=== PATIENT | female | born 1955 | race Caucasian/White ===

== ENCOUNTER 2019-10-09 17:23 | Outpatient (CLI) | payer BC, MEDICARE, SELFPAY ==
--- NOTE | ~2019-10-09 | CT_ITS ---
EXAMINATION: CT lung screening EXAM DATE: 10/09/2019 18:14 INDICATION: Personal history of nicotine dependence. TECHNIQUE: Spiral low dose CT of the chest without contrast. Axial, coronal and sagittal images were reviewed. The dose-length product (DLP) for this examination was 83.60 mGy-cm. The exposure was ta ilored according to patient size (auto mA exposure control), and iterative reconstruction (ASIR) was used as additional dose reduction technique. Comparison is made to prior examination from 11/23/2015. FINDINGS: The lungs are clear. There is mild emphysema. Tracheobronchial tree is patent. There is no mediastinal, hilar or axillary lymphadenopathy. There are no pleural or pericardial effusions. There is no pneumothorax. Heart normal in size. There is rather extensive coronary arterial calc ification, arterial sclerosis. Upper abdomen is unremarkable. There is thoracic spondylosis without osteoblastic or osteolytic lesions identified. IMPRESSION: 1. Lung-RADS category 2S, benign appearance or behavior (<1% chance of malignancy); recommend contin ued LDCT screening in 1 year. 2. Dense coronary artery calcifications. Consider follow-up nonemergent cardiology evaluation if not recently evaluated. Reviewed, dictated and finalized at location A. REPAIRER IMPRESSION: 1. Lung-RADS category 2S, benign appearance or behavior (<1% chance of maligna ncy); recommend continued LDCT screening in 1 year. 2. Dense coronary artery calcifications. Consider follow-up nonemergent cardio logy evaluation if not recently evaluated.
== END 2019-10-09 17:24 | disposition home or self-care (01) ==
PROVIDERS: PCP Emergency Medicine; Visit Provider Emergency Medicine
DX: Z12.2 Encounter for screening for malignant neoplasm of respiratory organs (principal); I25.10 Atherosclerotic heart disease of native coronary artery without angina pectoris; Z87.891 Personal history of nicotine dependence
CPT/HCPCS: G0297

== ENCOUNTER 2019-12-03 13:06 | Outpatient (CLI) | payer BC, MEDICARE, SELFPAY ==
--- NOTE | ~2019-12-03 | US_ITS ---
EXAMINATION: US carotid duplex BI DATE: 12/03/2019 14:07 INDICATION: Carotid stenosis. TECHNIQUE: Grayscale, color Doppler, and pulsed Doppler images of the cervical carotid arteries were obtained. The degree of vessel stenosis is placed in one of the following categories: normal, <50%, 5 0-69%, >=70% but less than near-occlusion, near-occlusion, or total occlusion. Note that percent sten osis relative to normal distal artery lumen diameter is indirectly measured from velocity measurement s as described by Mikel, et al. Radiology 2003; 229:340-346. COMPARISON: None. FINDINGS: RIGHT: The right common carotid artery (CCA) peak systolic velocity (PSV) is 70 cm/s. The right internal car otid artery (ICA) PSV is 73 cm/s. The right ICA end-diastolic velocity (EDV) is 18 cm/s. The right IC A/CCA PSV ratio is 1.0. Grayscale and color Doppler images yield an estimate of <50% diameter reducti on from plaque in the ICA. There is antegrade flow in the right vertebral artery. LEFT: The left CCA PSV is 107 cm/s. The left ICA PSV is 90 cm/s. The left ICA EDV is 23 cm/s. The left ICA/ CCA PSV ratio is 0.8. Grayscale and color Doppler images yield an estimate of <50% diameter reduction from plaque in the ICA. There is antegrade flow in the left vertebral artery. IMPRESSION: 1. <50% stenosis in the right internal carotid artery. 2. <50% stenosis in the left internal carotid artery. Reviewed, dictated and finalized at location A. RER HIGH DENSITY PRESS
== END 2019-12-03 13:07 | disposition home or self-care (01) ==
PROVIDERS: PCP Emergency Medicine; Visit Provider Emergency Medicine
DX: I65.23 Occlusion and stenosis of bilateral carotid arteries (principal)
CPT/HCPCS: 93880

== ENCOUNTER 2020-06-14 08:26 | Outpatient (CLI) | payer BC, MEDICARE, SELFPAY ==
--- NOTE | ~2020-06-14 | NM_ITS ---
EXAMINATION: NM francia stress w perfusion DATE: 06/14/2020 14:36 INDICATION: Dyspnea on exertion TECHNIQUE: Rest images were obtained following intravenous administration of 9.7 mCi Tc99m tetrofosmi n (Myoview). The patient was infused intravenously with Lexiscan (Regadenoson). Then, 30 mCi Tc99m te trofosmin (Myoview) was administered intravenously, and stress images were obtained. Data was reconst ructed into short axis and horizontal and vertical long axis SPECT images. Gated SPECT images were al so obtained. COMPARISON: None. FINDINGS: There is no definite reversible or fixed perfusion abnormality to suggest ischemia or infar ction. There is normal left ventricular chamber size, wall motion and ejection fraction. Left ventr icular ejection fraction measures >70%. IMPRESSION: 1. Normal myocardial perfusion at rest and during stress. 2. Left ventricular ejection fraction measuring >70%. Reviewed, dictated and finalized at location A.
--- NOTE | 2020-06-14 08:38 | ECHO_ITS ---
Patient Info Name: Diana Singh Age: 64 years : 1955 Gender: Female Ht: 63 in Wt: 143 lbs BSA: 1.71 m2 HR: 65 bpm BP: 137 / 88 mmHg Heart Rhythm: Sinus Rhythm Technical Quality: Good Exam Date: 06/14/2020 8:54 AM Exam Location: [facility] Patient Status: Outpatient Admit Date: 06/14/2020 Staff Ordering Physician: Oscar Mejia DO Donor Services Coordinator: Mann Bowman RDCS Attending Provider: Oscar Mejia DO Referring Physician: Roberto DIAZ; Exam Type: CA echo doppler color flow Study Info Indications R06.00 - Dyspnea, unspecified Complete two-dimensional, color flow and Doppler transthoracic echocardiogram is performed. Strain analysis performed. History/Risk Factors Dyspnea. Summary 1. Complete two-dimensional, color flow and Doppler transthoracic echocardiogram is performed. 2. Left ventricular chamber dimension is normal. 3. Left ventricular systolic function is normal, estimated at 60-65%. 4. There is mildly increased left ventricular wall thickness. 5. The left ventricular diastolic function is grade I diastolic dysfunction. 6. E/e' 11 is mildly elevated. 7. Global longitudinal strain is normal at -17.7%. Left Ventricle E/e' 11 is mildly elevated. Global longitudinal strain is normal at -17.7%. Left ventricular chamber dimension is normal. Left ventricular systolic function is normal, estimated at 60-65%. There is mildly increased left ventricular wall thickness. The left ventricular diastolic function is grade I diastolic dysfunction. Right Ventricle Right ventricular chamber dimension is normal. Right ventricular systolic function is normal. Left Atria Left atrial chamber dimension is normal. Right Atria Right atrial chamber dimension is normal. Aortic Valve The aortic valve is trileaflet. There is no aortic valve stenosis. There is no aortic valve regurgitation. Pulmonic Valve There is no pulmonic regurgitation. Mitral Valve There is no mitral valve stenosis. There is no mitral valve regurgitation. Tricuspid Valve There is no tricuspid valve regurgitation. Pericardium/Pleural There is no pericardial effusion. Inferior Vena Cava Normal inferior vena cava with >50% collapse upon inspiration consistent with normal right atrial pressure, 5 mmHg. Aorta The aortic root size at the sinus of Valsalva is normal. Left Ventricular Outflow Tract Name Value Normal LVOT 2D LVOT Diameter 1.7 cm LVOT Doppler LVOT Peak Gradient 4 mmHg LVOT Mean Gradient 2 mmHg LVOT VTI 20 cm LVOT VTI/AV VTI Ratio 0.7 LVOT Stroke Volume 43 ml LVOT CO 2.8 l/min LVOT CI 1.6 l/min/m2 Mitral Valve Name Value Normal MV Doppler
--- NOTE | 2020-06-14 08:38 | EST_ITS ---
Patient Info Name: Diana Singh Age: 64 years : 1955 Gender: Female Ht: 62 in Wt: 140 lbs BSA: 1.68 m2 Exam Date: 06/14/2020 10:37 AM Exam Location: [facility] Patient Status: Outpatient Admit Date: 06/14/2020 Staff Ordering Physician: Oscar Mejia DO Attending Provider: Oscar Mejia DO Exercise Technologist: Stephanie Pang RDCS Exercise Physician: Oscar Mejia DO Exam Type: CA stress francia w NM Study Info Indications R06.00 - Dyspnea, unspecified A regadenoson stress test was performed. Summary 1. 1. Negative lexiscan stress test for ischemic ST changes by ECG criteria. 2. 2. Stable hemodynamics throughout the test. 3. 3. Nuclear scan to follow and will be reported separately. Please correlate with it. 4. 4. Patient informed of the above results. Protocol: Lexiscan Stress ECG Details Stage: REST Duration (min): 5 min : 22 sec HR (bpm): 62 SBP (mmHg): 128 DBP (mmHg): 71 Stage: REST Duration (min): 11 min : 25 sec HR (bpm): 67 SBP (mmHg): 128 DBP (mmHg): 71 Stage: STAGE 1 Duration (min): 1 min : 0 sec HR (bpm): 98 SBP (mmHg): 129 DBP (mmHg): 76 Stage: RECOVERY Duration (min): 1 min : 0 sec HR (bpm): 104 SBP (mmHg): 151 DBP (mmHg): 72 Stage: RECOVERY Duration (min): 2 min : 0 sec HR (bpm): 96 SBP (mmHg): 151 DBP (mmHg): 72 Stage: RECOVERY Duration (min): 3 min : 0 sec HR (bpm): 88 SBP (mmHg): 128 DBP (mmHg): 71 Stage: RECOVERY Duration (min): 3 min : 3 sec HR (bpm): 89 SBP (mmHg): 128 DBP (mmHg): 71 Rest HR: 67 bpm Peak HR: 104 bpm Rest Sys BP: 128 mmHg Peak Sys BP: 151 mmHg Max Pred HR: 157 bpm % Max Pred HR: 66 % Target HR: 133 bpm Max RPP: 15,704 bpm*mmHg Termination Reason: Completed protocol Cardiac Symptoms: Shortness of breath Total Time: 1 min : 0 sec Rest Moore BP: 71 mmHg Peak Moore BP: 72 mmHg Total Dose: 0.4 mg Resting ECG Sinus rhythm, delayed R/S transition. Stress ECG No ST changes. Arrhythmias None. Report Signatures
== END 2020-06-14 08:27 | disposition home or self-care (01) ==
PROVIDERS: PCP Emergency Medicine; Visit Provider Internal Medicine Cardiovascular Disease
DX: R06.00 Dyspnea, unspecified (principal)
CPT/HCPCS: 78452; 93017; 93306; A9502; J2785

== ENCOUNTER 2022-11-02 13:49 | Outpatient (CLI) | payer MEDICARE, SELFPAY ==
--- NOTE | ~2022-11-02 | US_ITS ---
EXAMINATION: US arterial ankle brachial ind DATE: 11/02/2022 14:34 INDICATION: Peripheral vascular disease with numbness and tingling to the right lower limb TECHNIQUE: Segmental pressures and plethysmographic and Doppler waveforms of the brachial and lower e xtremity arteries were obtained. COMPARISON: None. FINDINGS: Right and left brachial artery pressures of 122 mm Hg and 133 mm Hg, respectively, are concordant (no rmal difference <= 30 mmHg). The right ankle-brachial index (KRISTIN) is 1.05 (normal >= 0.9-1.0). The right great toe-brachial index (TBI) is 0.47 (normal >= 0.65). Arterial Doppler waveforms biphasic with brisk systolic upstrokes at both right posterior tibial and dorsalis pedis arteries. The left KRISTIN is 1.13. The left TBI is 0.62. Arterial Doppler waveforms are biphasic with brisk systol ic upstrokes at both left posterior tibial and dorsalis pedis arteries. IMPRESSION: 1. Arterial occlusive disease to the bilateral lower limbs with mildly decreased bilateral TBIs. Reviewed, dictated and finalized at location B. ATIONS AND MAINTENANCE SUPERVISOR IMPRESSION: 1. Arterial occlusive disease to the bilateral lower limbs with mildly decrease d bilateral TBIs.
== END 2022-11-02 13:50 | disposition home or self-care (01) ==
PROVIDERS: PCP Family Medicine; Visit Provider Family Medicine
DX: I73.9 Peripheral vascular disease, unspecified (principal)
CPT/HCPCS: 93922

== ENCOUNTER 2024-02-07 12:30 | Outpatient (CLI) | payer MEDICARE, SELFPAY ==
--- NOTE | ~2024-02-07 | CT_ITS ---
CT Scan of the Chest without Contrast: Clinical Indication: Lung cancer screening, smoking history Technique: Contiguous sections were acquired throughout the chest without intravenous contrast. Dose reduction technique was used on this scan by utilizing automated exposure control and iterative recon struction technique. The dose-length product (DLP) was 78.19 mGy-cm. COMPARISON: 10/09/2019 Findings: There is no evidence of any significant mediastinal, hilar or axillary lymphadenopathy. Atherosclerot ic calcifications of the aorta and coronary arteries are present. There is no evidence of pleural or pericardial effusion. Several calcified granulomas are present. No other pulmonary nodule evident. Images through the upper abdomen reveal no abnormalities. Impression: No significant abnormalities seen. Reviewed, dictated and finalized at location . Impression: No significant abnormalities seen.
== END 2024-02-07 12:31 | disposition home or self-care (01) ==
LOC: ANHIMG 12:32
PROVIDERS: PCP Family Medicine; Visit Provider Family Medicine
DX: Z12.2 Encounter for screening for malignant neoplasm of respiratory organs (principal); Z87.891 Personal history of nicotine dependence
CPT/HCPCS: 71271

== ENCOUNTER 2024-03-13 10:47 | Inpatient (IN) | payer MEDICARE, SELFPAY ==
[2024-03-13] VITALS (21 sets, daily range): BP systolic 99–250; BP diastolic 28–85; PULSE 28–92; RESP 15–26; TEMP 36.6–37.2; O2SAT 94–100; BMI 29.9
--- NOTE | 2024-03-13 | ECHO_ITS ---
Patient Info Name: Diana Singh Age: 68 years : 1955 Gender: Female Ht: 62 in Wt: 149 lbs BSA: 1.74 m2 HR: 70 bpm BP: 126 / 64 mmHg Heart Rhythm: Paced Technical Quality: Fair Exam Date: 03/13/2024 1:21 PM Exam Location: Echo Lab Patient Status: Inpatient Admit Date: 03/13/2024 Staff Ordering Physician: Smith Castelan MD Youth Care Specialist: Honorio Nielson [facility] [[email or web address]] Attending Provider: Peter Ramirez MD Referring Physician: Annelise HIRSCH; Exam Type: CA echo doppler color flow Study Info Indications - Complete Heart Block Complete two-dimensional, color flow and Doppler transthoracic echocardiogram is performed. Summary 1. Complete two-dimensional, color flow and Doppler transthoracic echocardiogram is performed. 2. Normal left and right ventricular size and systolic function. 3. No significant valvular abnormalities. 4. Temporary pacemaker lead noted in the right heart chambers. Left Ventricle Left ventricular chamber dimension is normal. Left ventricular systolic function is normal, estimated at 65-70%. The left ventricular diastolic function is indeterminate. Right Ventricle Right ventricular chamber dimension is normal. Left Atria Left atrial chamber dimension is normal. Right Atria Right atrial chamber dimension is normal. Aortic Valve The aortic valve is trileaflet. There is mild aortic valve sclerosis. Pulmonic Valve The pulmonic valve is normal. Mitral Valve The mitral valve has normal leaflets. Tricuspid Valve The tricuspid valve leaflets are normal. Pericardium/Pleural The pericardium appears normal. Aorta The aortic root size at the sinus of Valsalva is normal. Left Ventricular Outflow Tract Name Value Normal LVOT 2D LVOT Diameter 2.0 cm LVOT Doppler LVOT Peak Gradient 6 mmHg LVOT Mean Gradient 3 mmHg LVOT VTI 27 cm LVOT VTI/AV VTI Ratio 0.9 LVOT Stroke Volume 80 ml LVOT CO 5.3 l/min LVOT CI 3.1 l/min/m2 Pulmonic Valve Name Value Normal RVOT Doppler RVOT Peak Gradient 6 mmHg PV Doppler PV Peak Gradient 10 mmHg Mitral Valve Name Value Normal MV Doppler MV Decel [place] 427 cm/s2 MV PHT 61 ms MV Area (PHT) 3.6 cm2 4.0-5.0 MV Diastolic Function MV E
--- NOTE | ~2024-03-13 | XR_ITS ---
EXAMINATION: XR chest 1V portable DATE: 03/13/2024 11:54 INDICATION: Chest pain. TECHNIQUE: A single frontal view of the chest was obtained. COMPARISON: Chest 2 views 01/24/2014, chest CT 02/07/2024 FINDINGS: There is no pneumonia, pleural effusion, or pneumothorax. The heart size is normal. IMPRESSION: 1. No acute cardiopulmonary disease. Reviewed, dictated and finalized at location A.
--- NOTE | ~2024-03-13 | XR_ITS ---
XR chest 1V portable Ordering provider: Smith Castelan MD History: 68 years Female with . pacemaker insertion . Comparison: March 13, 2024 at 11:49 AM FINDINGS: MEDIASTINUM: The cardiac silhouette is not enlarged. Left bipolar pacemaker. LUNGS: No effusion or pneumothorax. Bilateral prominent markings with interstitial changes. OTHER: No free air under the diaphragm. IMPRESSION: Bilateral prominent markings with interstitial changes. Pneumonitis is highly suggestive. Reviewed, dictated and finalized at location A. IMPRESSION: Bilateral prominent markings with interstitial changes. Pneumonitis is highly s uggestive.
--- NOTE | ~2024-03-13 | XR_ITS ---
EXAMINATION: XR chest 2V 03/14/2024 16:08 INDICATION: Pacemaker insertion PROCEDURE: 2 view chest COMPARISON: 03/13/2024 FINDINGS: The lungs are clear. The cardiomediastinal silhouette is within normal limits. There are no pleural effusions. There is no pneumothorax suspected. Pacemaker leads are present. IMPRESSION: 1: NO ACUTE CARDIOPULMONARY DISEASE. Reviewed, dictated and finalized at location B.
--- NOTE | 2024-03-13 10:49 | ECG_ITS ---
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 Measurements Intervals [place] Rate: 31 P: 0 ME: 0 QRS: -69 QRSD: 128 T: 47 QT: 470 QTc: 341 Interpretive Statements SINUS RHYTHM WITH HIGH GRADE AV BLOCK WITH 3-1 CONDUCTION RIGHT BUNDLE BRANCH BLOCK [120+ ms QRS DURATION, UPRIGHT V1, 40+ ms S IN I/aVL/V4/V5/V6] LEFT ANTERIOR FASCICULAR BLOCK [QRS AXIS <= -45, QR IN I, RS IN II] ABNORMAL ECG No previous ECG available for comparison Electronically Signed On 03-14-2024 07:46:15 CDT by Smith Castelan M.D.
[2024-03-13 11:14] LABS: Basophils Absolute Auto 0.1 K/mm3 (0.0-0.1); Basophils Percent Auto 0.7 % (0.2-1.2); Eosinophils Absolute Auto 0.3 K/mm3 (0-0.3); Eosinophils Percent Auto 2.2 % (0-4.4); Hemoglobin 14.9 g/dL (12.0-15.0); Immature Granulocyte Absolute 0.07 K/mm3 (0.00-0.031); Immature Granulocyte Percent A 0.5 % (0-0.5); Lymphocytes Absolute Auto 2.91 K/mm3 (0.9-3.2); Lymphocytes Percent Auto 19.7 % (18.3-44.2); Mean Corpuscular HGB Conc 33.1 g/dl (32-36); Mean Corpuscular Hemoglobin 31.7 pg (26-34); Mean Corpuscular Volume 95.7 fl (80-100); Mean Platelet Volume 11.4 fl (7.4-10.4); Monocytes Absolute Auto 1.1 K/mm3 (0.1-0.6); Monocytes Percent Auto 7.2 % (2.6-8.5); Neutrophils Absolute Auto 10.3 K/mm3 (1.3-6.7); Neutrophils Percent Auto 69.7 % (45.5-73.1); Platelet Count Result 287 k/mm3 (150-375); Red Cell Distribution Width 12.6 % (11.5-14.5); White Blood Count 14.8 K/mm3 (4.5-10.0)
[2024-03-13] MEDS: ATROPINE SULFATE 1 MG/ML VIAL 0.5 MG IV PUSH (11:18)
[2024-03-13] MEDS: fentaNYL CITRATE INJ (*CRX) 100 MCG/2 ML VIAL 50 MCG IV PUSH ×2 (11:18→11:25)
[2024-03-13] MEDS: MIDAZOLAM HCL (*CRX) 2 MG/2 ML VIAL IV PUSH (11:19)
--- NOTE | 2024-03-13 11:28 | ED.GENADULT ---
HPI - General Adult General Chief complaint: Chest Pain Stated complaint: chest pain, vomiting Time Seen by Provider: 03/13/24 11:07 History of Present Illness HPI narrative: This is a 68-year-old female presenting ED with a chief complaint chest pain and vomiting. Patient woke up this morning with a substernal chest pain. It is associated with multiple episodes of vomiting. no associated radiation or diaphoresis, or exertion. No fevers chills, difficulty breathing or abdominal pain. Patient is on metoprolol but has not taken her morning dose today. Related Data Home Medications Medication Instructions Recorded Confirmed atorvastatin 40 mg tablet (Lipitor) 40 mg PO DAILY 04/28/20 05/20/20 ergocalciferol (vitamin D2) 1,250 1,250 mcg PO WEEKLY 04/28/20 05/20/20 mcg (50,000 unit) capsule metformin 500 mg tablet 500 mg PO BID 04/28/20 05/20/20 metoprolol tartrate 50 mg tablet 50 mg PO Q12H 04/28/20 05/20/20 amlodipine 10 mg tablet (Norvasc) 5 mg PO DAILY 05/20/20 05/20/20 Allergies Allergy/AdvReac Type Severity Reaction Status Date / Time No Known Allergies Allergy Unverified 05/20/20 13:37 [facility] Past Medical History Medical History Diabetes Hypertension Exam Narrative: APPEARANCE: No apparent distress. Head: atraumatic. EYES: EOMI, NOSE: Atraumatic NECK: Trachea midline RESPIRATORY: No increased rate of breathing, CTAb CARDIOVASCULAR: Bradycardic, no peripheral edema ABDOMINAL: Non-distended, soft nontender MUSCULOSKELETAl: No obvious deformities NEURO: Alert. Moving 4/4 extremities SKIN:: Warm, dry. Normal color PSYCHIATRIC: Normal affect Course Vital Signs Vital signs: Vital Signs Temperature 98.1 F 03/13/24 10:52 Pulse Rate 28 L 03/13/24 10:52 Respiratory Rate 18 03/13/24 10:52 Blood Pressure 150/50 H 03/13/24 10:52 Pulse Oximetry 100 03/13/24 10:52 Oxygen Delivery Room Air 03/13/24 10:52 Temperature 98.1 F 03/13/24 10:52 Pulse Rate 58 L 03/13/24 11:47 Respiratory Rate 20 03/13/24 11:47 Blood Pressure 250/28 H 03/13/24 11:47 Pulse Oximetry 94 03/13/24 11:47 Oxygen Delivery Room Air 03/13/24 11:06 Medical Decision Making MDM Narrative Medical decision making narrative: -Course: 68-year-old female presenting with chest pain and vomiting. Found to be in third-degree AV block. Given atropine with no response. Due to the chest pain and vomiting patient has been started on transcutaneous pacing at 70 bpm w/ capture at 100ma. heel layer contacted. Dr. Be will be taking the patient to the labor relations or personnel negotiator for a transvenous pacer and the patient will be placed in the ICU. -DDX includes but is not limited to: high grade AV block - ischemia, drug reaction, electrolyte abnormality -Co-morbidities complicating care: hypertension, diabetes -Independent interpretation of studies: white count 14 potassium 4.9 chest x-ray unremarkable. Independent EKG interpretation: Rhythm high grade av block, Rate [31], [place] -leftward, QRS [narrow], QTC [normal], T waves -[negative for concerning inversions], ST Segments - [Negative for concerning elevations] Final interpretations: high degree AV block, type 2 Mobitz with 3-1 versus complete AV block -Discussion of Management/Consultants:Cong Be, -Interventions: Atropine, Transcutaneous pacing -Shared decision making / Disposition: admitted Vital Signs Vital Signs: Vital Signs Temperature 98.1 F 03/13/24 10:52 Pulse Rate 28 L 03/13/24 10:52 Respiratory Rate 18 03/13/24 10:52 Blood Pressure 150/50 H 03/13/24 10:52 Pulse Oximetry 100 03/13/24 10:52 Oxygen Delivery Room Air 03/13/24 10:52 Temperature 98.1 F 03/13/24 10:52 Pulse Rate 58 L 03/13/24 11:47 Respiratory Rate 20 03/13/24 11:47 Blood Pressure 250/28 H 03/13/24 11:47 Pulse Oximetry 94 03/13/24 11:47 Oxygen Delivery Room Air
[2024-03-13 11:32] LABS: Prothrombin Time 14.1 Seconds (11.1-14.7)
[2024-03-13 11:33] LABS: Partial Thromboplastin Time 21.5 Seconds (22.3-36.8)
--- NOTE | 2024-03-13 11:49 | PC.NURSE ---
Dr. Castelan at bedside discussing possibility of needing a pacemaker with pt and family.
[2024-03-13 11:56] LABS: Alanine Aminotransferase 74 U/L (6-35); Albumin Level 3.8 g/dL (3.5-5.1); Alkaline Phosphatase 294 U/L (38-126); Anion Gap 6 mmol/L (4-12); Aspartate Amino Transferase 73 U/L (14-36); Bilirubin,Total 0.6 mg/dL (0.2-1.3); Blood Urea Nitrogen 27 mg/dL (7-17); Calcium 9.1 mg/dL (8.4-10.2); Carbon Dioxide 25 mmol/L (22-30); Chloride 100 mmol/L (98-107); Estimated CRCL calculation 48 ml/min; Estimated Glomerular Filt Rate > 60; Glucose 491 mg/dL (65-110); Lipase 242 U/L (23-300); Potassium 4.9 mmol/L (3.4-5.0); Sodium 131 mmol/L (137-145)
--- NOTE | 2024-03-13 12:07 | PM.CNCAR ---
Assessment and Plan Assessment and plan (1) High-grade atrioventricular block: Code(s): I44.39 - Other atrioventricular block Status: Acute Plan This is a 68-year-old lady presenting interestingly with some epigastric discomfort. There is no evidence of acute injury by ECG but she does have acquired high-grade AV block and currently appears to be in complete heart block with very few QRS complexes other than the paced output from her transcutaneous device. Her electrolytes and laboratory data appears to be largely in order except for significant hyperglycemia. I am going to bring her immediately to the cardiac catheterization lab for placement of a transcutaneous pacemaker device. She will then go from there to the ICU where an echocardiogram will be done as soon as possible to make decisions about optimal type of permanent pacemaker device Smith Castelan MD [facility] History of Present Illness History of Present Illness Consult date/time: 03/13/24 12:07 Reason For Visit: chest pain, vomiting Narrative: This is a 68-year-old woman unknown to me prior to this encounter who I am seeing in the emergency room because of high-grade AV block. I was called a short time a bow go by the ED physician that the patient presented to an urgent care center today are reporting symptoms of some epigastric discomfort that began several hours ago while she was at home she is not really noticing any pain up in the chest shoulders or back. She was feeling poorly because of this interestingly she was not having any complaints of syncope lightheadedness or presyncope. She was found to be bradycardic and was sent to the emergency department. Her electrocardiogram on arrival appears to show sinus rhythm with high-grade AV block with a 3-1 conduction. She was placed on a temporary trans cutaneous pacemaker by the ED physician wall a workup was initiated. Her 12 lead electrocardiogram does not show any acute current of injury or ischemic pattern. Upon my arrival to the ER she appears to be relatively comfortable other than the shocking from the transcutaneous pacemaker device. When I pause the pacemaker output she has complete heart block with P waves with very few intrinsic QRS complexes. In this setting I am seeing her in consultation she does not have any prior cardiac history. He does have hypertension and diabetes as well as hypercholesterolemia. Review of Systems Constitutional: Constitutional: Reports no additional constitutional complaints Eyes: Eyes: Reports no additional eye complaints ENT: Reports system reviewed and no additional complaints, except as documented Cardiovascular: Cardiovascular: Reports as per HPI Respiratory: Respiratory: Reports no additional respiratory complaints Gastrointestinal: Gastrointestinal: Reports no additional gastrointestinal complaints Musculoskeletal: Musculoskeletal: Reports no additional musculoskeletal complaints Integumentary/Breasts: Skin/Breast: Reports system reviewed and no additional complaints, except as docu Neurologic: Reports system reviewed and no additional complaints, except as documented Endocrine: Endocrine: Reports no additional endocrine complaints Hematologic/Lymphatic: Hematologic/Lymphatic: Reports no additional hematologic/lymphatic complaints Allergic/Immunologic: Allergic/Immunologic: Reports no additional allergic/immunologic complaints [facility] Past Medical History Medical History Diabetes Hypertension Meds Home Medications and Allergies Home Medications Medication Instructions Recorded Confirmed Type atorvastatin 40 mg tablet (Lipitor) 40 mg PO DAILY 04/28/20 05/20/20 History ergocalciferol (vitamin D2) 1,250 1,250 mcg PO WEEKLY 04/28/20 05/20/20 History mcg (50,000 unit) capsule metformin 500 mg tablet 500 mg PO BID 04/28/20 05/20/20 History metoprolol tartrate 50 mg tablet 50 mg PO Q12H 04/28
[2024-03-13 12:08] LABS: Troponin I < 0.012 ng/mL (0.000-0.034)
--- NOTE | 2024-03-13 12:12 | WPDMODSED ---
Moderate Sedation Note-Pt Data Patient Data Diagnosis: Acquired complete heart block Present Complaint: Abdominal discomfort in the epigastrium Procedure to be performed/Plan: Placement of temporary transvenous pacemaker Allergies Allergy/AdvReac Type Severity Reaction Status Date / Time No Known Allergies Allergy Unverified 05/20/20 13:37 Home Medications Medication Instructions Recorded Confirmed Type atorvastatin 40 mg tablet (Lipitor) 40 mg PO DAILY 04/28/20 05/20/20 History ergocalciferol (vitamin D2) 1,250 1,250 mcg PO WEEKLY 04/28/20 05/20/20 History mcg (50,000 unit) capsule metformin 500 mg tablet 500 mg PO BID 04/28/20 05/20/20 History metoprolol tartrate 50 mg tablet 50 mg PO Q12H 04/28/20 05/20/20 History amlodipine 10 mg tablet (Norvasc) 5 mg PO DAILY 05/20/20 05/20/20 History Sedation/Anesthesia: No previous sedation/anesthesia problems (including family history). PMFSH Past Medical History Medical History Diabetes Hypertension Mod Sed Physical Exam Physical Exam Pre Procedural Exam: Normal: Appearance (Well-developed well-nourished lady somewhat uncomfortable with transcutaneous pacemaker output), Throat, Airway, Lungs, Heart Size, Heart Rate (Cutaneously paced rhythm), Heart Rhythm, Neuro Exam and Extremities Hours since solid foods: 4 Hours since liquid intake: 4 Mallampati Classification: class II Internal Medicine - PN: Obj Da Vital Signs Vital Signs: Vital Signs - 24 hr 03/13/24 10:52 03/13/24 11:06 03/13/24 11:06 Temperature 36.7 C Pulse Rate 28 L 37 L Respiratory Rate 18 Blood Pressure 150/50 H Pulse Oximetry 100 Oxygen Delivery Room Air Room Air 03/13/24 11:47 Temperature Pulse Rate 58 L Respiratory Rate 20 Blood Pressure 250/28 H Pulse Oximetry 94 Oxygen Delivery Meds/Results Radiology Results: ITS Impressions Chest X-Ray 03/13/24 12:02 IMPRESSION: 1. No acute cardiopulmonary disease. Labs 03/13/24 11:09 03/13/24 11:31 Labs: Laboratory Results - last 24 hr 03/13/24 03/13/24 11:09 11:31 WBC 14.8 H RBC 4.70 Hgb 14.9 Hct 45.0 MCV 95.7 MCH 31.7 MCHC 33.1 RDW 12.6 Plt Count 287 MPV 11.4 H Immature Gran % (Auto) 0.5 Neut % (Auto) 69.7 Lymph % (Auto) 19.7 Trigg % (Auto) 7.2 Eos % (Auto) 2.2 Baso % (Auto) 0.7 Lymph # (Auto) 2.91 Trigg # (Auto) 1.1 H Eos # (Auto) 0.3 Baso # (Auto) 0.1 Abs Immat Gran (auto) 0.07 H Absolute Neuts (auto) 10.3 H Absolute Nucleated RBC 0.000 Nucleated RBC % 0.0 PT 14.1 INR 1.0 APTT 21.5 L Sodium 131 L Potassium 4.9 Chloride 100 Carbon Dioxide 25 Anion Gap 6 BUN 27 H Creatinine 0.90 Estim Creat Clear Calc 48 Estimated GFR > 60 Glucose 491 H Calcium 9.1 Total Bilirubin 0.6 AST 73 H ALT 74 H Alkaline Phosphatase 294 H Troponin I < 0.012 Total Protein 7.0 Albumin 3.8 Lipase 242 ASA Classification/Sedation ASA Classification/Sedation ASA Class: IV Emergent: No Risks: Risks, benefits and alternatives explained and patient/family accepted plan for sedation. Patient re-evaluated immediately prior to sedation.
--- NOTE | 2024-03-13 12:46 | WPDCARDPROC ---
Cardiac Cath Procedure Note Date of procedure:: 03/13/24 Performing physician:: Smith Castelan MD Indication:: Symptomatic bradycardia with complete heart block Brief clinical history:: this is a 68-year-old woman who came to the hospital with a chief complaint of epigastric abdominal discomfort. She is interested in the found to be bradycardic with high-grade AV block. Transcutaneous pacing was started in the emergency room and at this time she appears to be dependent on the device as there is no intrinsic ventricular rhythm upon pausing of her pacemaker. In this setting a temporary transvenous pacemaker has been recommended Procedure Procedure performed:: temporary transvenous pacemaker Sedation/Medication given:: fentanyl 25 Versed 2 mg Access site:: right femoral vein Estimated blood loss:: minimal Procedure note:: patient was brought to the cardiac catheterization lab with the temporary transcutaneous pacemaker device in place and pacing at 80 beats per minute. The right femoral triangle was prepped and draped in the usual fashion. Anesthesia was given with 1% lidocaine infiltrated locally. Using the modified Seldinger technique the femoral vein was punctured and a 6 [place] vascular sheath was placed. After this I used a 5 [place] balloon tipped temporary pacing wire advanced under fluoroscopic guidance into the central venous circulation into the right atrium across the tricuspid valve and into the RV near the apex. The balloon was deflated and the permanent wire was tested using the 2 temporary generator device. The pacing and sensing performance was very good. The transcutaneous device was then turned off. The sheath was sutured into position with 2-0 silk the area was dressed with a Tegaderm to stabilize the temporary wire. She was taken to the ICU for further evaluation and management. Conclusion:: Successful uncomplicated placement of temporary transvenous pacing lead in this patient with acquired complete heart block who appears to have essentially become dependent on pacing with a transcutaneous device that was initiated in the emergency department. Smith Castelan MD [facility]
--- NOTE | 2024-03-13 13:04 | ADMGEN ---
This patient, Diana Singh, was admitted to Intensive Care Unit-1. Patient/family oriented to hospital policies and general routines including ID bracelet, bed and alarms, visiting hours, pain management, procedures, bathroom and other care routines, personal items, smoking policy, room service/diet, and visiting hours. Information on how to activate the Rapid Response Team has been discussed. Patient/Family are encouraged to report perceived risks to care and to ask questions if they do not understand what they are told or what they should do.
--- NOTE | 2024-03-13 13:11 | WPDCNINT ---
Assessment and Plan Assessment and plan (1) High-grade atrioventricular block: Code(s): I44.39 - Other atrioventricular block Status: Acute Assessment and Plan: patient presented with symptomatic high-grade AV block. Received transvenous pacer in the ER. She is on beta-torie at home but did not take her medication this morning. electrolytes are acceptable patient was taken to cardiac catheterization lab and underwent transvenous pacemaker placement. Patient now chest pain-free and hemodynamics improved. echo was reviewed by clinical haematologist at bedside and plan is to place permanent pacemaker npo (2) Diabetes: Code(s): E11.9 - Type 2 diabetes mellitus without complications Status: Acute Assessment and Plan: sliding scale insulin npo at this time check HbA1c (3) Hypertension: Code(s): I10 - Essential (primary) hypertension Status: Acute Assessment and Plan: hold antihypertensives at this time (4) Dyslipidemia: Code(s): E78.5 - Hyperlipidemia, unspecified Status: Inactive Assessment and Plan: continue atorvastatin Plan DVT prophylaxis - Scd Nutrition - npo at this time Code Status - Full Code Total Critical Care Time - 30 minutes Due to a high probability of clinically significant, life threatening deterioration, the patient required my highest level of preparedness to intervene emergently and I personally spent this critical care time directly and personally managing the patient. This critical care time included obtaining a history; examining the patient; pulse oximetry; ordering and review of studies; arranging urgent treatment with development of a management plan; evaluation of patient's response to treatment; frequent reassessment; and discussions with other providers. It was exclusive of separately billable procedures and treating other patients and teaching time. Please see Assessment and Plan section and the rest of the note for further information on patient assessment and treatment Textbook Associate Consult Note Consult date: 03/13/24 Reason for consult: heart block HPI: Diana Singh is a 68 year old female past medical history of diabetes and hypertension who presented to ER with chief complaint of chest pain and vomiting. Chest pain was substernal Burning and is as stated multiple episodes of vomiting with no blood as stated with it. No radiation of the pain diaphoresis no shortness of breath. in ER patient was found to be having high-grade type 2 Mobitz AV block with 3-1 conduction. Patient was started with transcutaneous pacing by ER physician. Cardiology was consulted. During cardiology evaluation patient was found to be having complete heart block.. Patient was taken to cardiac catheterization lab and underwent transvenous temporary pacemaker placement. Apparently patient is on beta-torie at home but did not take her any medication this morning. she had a negative stress test in 2019. Patient states the pain was 8/10 did not radiate anywhere else and was associated with shortness of breath. She states she went to bed feeling fine with no symptoms. Patient denies fever, cough, abdominal pain,, diarrhea, headache or constipation. no dysuria. reports the patient does have nocturia and has been drinking lot of ice tea during the day. All other systems were reviewed and were negative. Patient now status post transvenous pacemaker placement and has paced rhythm at 70 on the monitor. map 82 Review of Systems Review of Systems: All systems reviewed & are unremarkable except as noted in HPI and below ( HPI) [facility] Past Medical History Medical History (Updated 03/13/24 @ 13:49 by Anni Simmons APRN) Diabetes Dyslipidemia Hypertension Social History Social History Smoking status: Former smoker Additional smoking assessment comments: quit 10 years
--- NOTE | 2024-03-13 13:14 | PM.IMHP ---
H&P: HPI History of Present Illness Date/Time: 03/13/24 19:30 Chief Complaint: Chest Pain, Nausea, Bradycardia Narrative: 68 y/o F presents here with chest pain with PMH of DM, CVA, and HTN. The patient presented here from home for further evaluation of chest pain, nausea, and vomiting. Onset was this morning when she woke up around 0930 am. She describes the pain as substernal, cramping, nonradiating, constant initially, no aggravating factors, and no alleviating factors. Pain is accompanied by mild shortness of breath, nausea, and vomiting. Emesis was nonbilious and nonbloody. No associated palpitations, diaphoresis, fatigue, syncope or presyncope sensation. Reports short illness 1 week ago that involved nausea and vomiting x3 over 2-3 days that was not accompanied by abdominal pain or chest pain. Denies any new medications or changes in dosage. Patient lives at home with her and she does not receive help with her medications. Upon arrival to the ED, EKG noted a high grade AV block. Atropine was trialed without response. Transcutaneous pacing was initiated - 70 bpm w/ capture at 100ma. No significant electrolyte derangements on lab work and CXR was unremarkable. She reports resolution of chest discomfort and nausea with the initation of the transcutaneous pacing. No current complaints. Sees Gisela Grace as her PCP. Initial VS at presentation: 98.1? F, HR 28, R 18, 150/50, and 100% on RA. ED workup showed: WBC 14.8, no anemia, INR 1.0, sodium 131, creatinine 0.9 and normal in GFR, glucose 491, AST 73, ALT 74, alk-phos 294, and initial troponin negative. CXR showed no acute cardiopulmonary disease. Initial EKG showed sinus rhythm with high-grade AV block, rate 31. Review of Systems Review of Systems: All systems reviewed & are unremarkable except as noted in HPI and below FOR[facility]LY [facility], [facility] Past Medical History Medical History CVA (cerebral vascular accident) no residual deficits (2011) Diabetes Dyslipidemia Glaucoma Hypertension Surgical History Surgical History History of bilateral cataract extraction History of tonsillectomy Social History Social History Smoking status: Former smoker Additional smoking assessment comments: quit 10 years ago Alcohol intake: never Substance use: never Do You Feel Safe in your Home?: Yes Lack of Transportation: No Lack of Food: Never True Current Housing: Decline to Answer Concerned About Future Housing: No Difficulty Paying Gas/Electric Bills: No Difficulty Paying for Meds: No Currently Unemployed: No Education: Decline to Answer Difficulty w/ Childcare or Family Care: No Spiritual care concerns: No Meds Home Medications and Allergies Home Medications Medication Instructions Recorded Confirmed Type metformin 500 mg tablet 1,000 mg PO BID 04/28/20 03/13/24 History metoprolol tartrate 50 mg tablet 50 mg PO Q12H 04/28/20 03/13/24 History amlodipine 10 mg tablet (Norvasc) 10 mg PO DAILY 05/20/20 03/13/24 History empagliflozin 25 mg tablet 25 mg PO DAILY 03/13/24 03/13/24 History (Jardiance) glimepiride 4 mg tablet 8 mg PO QAM 03/13/24 03/13/24 History losartan 100 mg tablet 100 mg PO DAILY 03/13/24 03/13/24 History Allergies Allergy/AdvReac Type Severity Reaction Status Date / Time No Known Allergies Allergy Unverified 05/20/20 13:37 Vital Signs Vital Signs - 24 hr 03/13/24 10:52 03/13/24 11:06 03/13/24 11:06 Temperature 98.1 F Pulse Rate 28 L 37 L Respiratory Rate 18 Blood Pressure 150/50 H Pulse Oximetry 100 Oxygen Delivery Room Air Room Air 03/13/24 11:47 Temperature Pulse Rate 58 L Respiratory Rate 20 Blood Pressure 250/28 H Pulse Oximetry 94 Oxygen Delivery Exam Const: General: comfortable and no acute distress Other: Fema
[2024-03-13 13:41] LABS: Hemoglobin A1C 10.9 % (<5.7)
--- NOTE | 2024-03-13 14:26 | WPDMODSED ---
Moderate Sedation Note-Pt Data Patient Data Diagnosis: acquired complete heart block Present Complaint: abdominal discomfort Procedure to be performed/Plan: implantation of permanent pacemaker Allergies Allergy/AdvReac Type Severity Reaction Status Date / Time No Known Allergies Allergy Unverified 05/20/20 13:37 Home Medications Medication Instructions Recorded Confirmed Type atorvastatin 40 mg tablet (Lipitor) 40 mg PO DAILY 04/28/20 05/20/20 History ergocalciferol (vitamin D2) 1,250 1,250 mcg PO WEEKLY 04/28/20 05/20/20 History mcg (50,000 unit) capsule metformin 500 mg tablet 500 mg PO BID 04/28/20 05/20/20 History metoprolol tartrate 50 mg tablet 50 mg PO Q12H 04/28/20 05/20/20 History amlodipine 10 mg tablet (Norvasc) 5 mg PO DAILY 05/20/20 05/20/20 History Current Medications: Active Medications Atorvastatin Calcium (Atorvastatin 40 Mg Tablet) 40 mg PO DAILY FRANCIS Dextrose (Dextrose 50% 25 Gm/50 Ml Syringe) 12.5 gm IV PUSH PRN PRN; Protocol PRN Reason: Hypoglycemia Glucagon (Glucagon For Inj 1 Mg Vial) 1 mg IM PRN PRN; Protocol PRN Reason: Hypoglycemia Glucose (Glucose Oral Gel 15 Gm Of Glucse In 37.5 Gm Tube) 15 gm PO PRN PRN; Protocol PRN Reason: Hypoglycemia Dextrose (Dextrose 5% 1,000 Ml) 1,000 mls @ 100 mls/hr IVPB PRN PRN; Protocol PRN Reason: Hypoglycemia Insulin Aspart (Insulin Aspart (*Bkc) 100 Units/Ml) 1 - 2 units SUB-Q HS FRANCIS; Protocol Insulin Aspart (Insulin Aspart (*Bkc) 100 Units/Ml) 2 - 5 units SUB-Q TIDWM FRANCIS; Protocol Pantoprazole Sodium (Pantoprazole Sodium Iv 40 Mg Vial) 40 mg IV PUSH QAM FRANCIS Perflutren Lipid Microsphere (Perflutren Lipid Microspheres 1.5 Ml Vial Diluted To 10 Ml Total Volume) 0 ml IV PUSH ONCE PRN; Protocol PRN Reason: adequate visualization Stop: 03/16/24 12:54 Sedation/Anesthesia: No previous sedation/anesthesia problems (including family history). [facility] Past Medical History Medical History (Updated 03/13/24 @ 13:49 by Anni Simmons APRN) Diabetes Dyslipidemia Hypertension Social History Social History Smoking status: Former smoker Additional smoking assessment comments: quit 10 years ago Mod Sed Physical Exam Physical Exam Pre Procedural Exam: Normal: Appearance, Neck, Throat, Airway, Lungs, Heart Size, Heart Rate ( paced rhythm), Heart Rhythm, Neuro Exam and Extremities Hours since solid foods: 6 Hours since liquid intake: 6 Mallampati Classification: class II Internal Medicine - PN: Obj Da Vital Signs Vital Signs: Vital Signs - 24 hr 03/13/24 10:52 03/13/24 11:06 03/13/24 11:06 Temperature 36.7 C Pulse Rate 28 L 37 L Pulse Rate [Right Pedal (Dorsalis Pedis) Palpation] Respiratory Rate 18 Blood Pressure 150/50 H Pulse Oximetry 100 Oxygen Delivery Room Air Room Air 03/13/24 11:47 03/13/24 13:22 03/13/24 13:37 Temperature Pulse Rate 58 L 70 Pulse Rate [Right Pedal (Dorsalis Pedis) Palpation] 70 70 Respiratory Rate 20 23 H Blood Pressure 250/28 H 125/64 Pulse Oximetry 94 95 Oxygen Delivery 03/13/24 14:00 03/13/24 14:07 Temperature Pulse Rate 70 Pulse Rate [Right Pedal (Dorsalis Pedis) Palpation] 70 Respiratory Rate Blood Pressure Pulse Oximetry Oxygen Delivery Meds/Results Medications: Active Medications Generic Name Dose Route Start Last Admin Trade Name Freq PRN Reason Stop Dose Admin Atorvastatin Calcium 40 mg 03/14/24 09:00 Atorvastatin 40 Mg Tablet PO DAILY FRANCIS Dextrose 12.5 gm 03/13/24 13:18 Dextrose 50% 25 Gm/50 Ml Syringe IV PUSH PRN PRN Hypoglycemia Protocol Glucagon 1 mg 03/13/24 13:18 Glucagon For Inj 1 Mg Vial IM PRN PRN Hypoglycemia Protocol Glucose 15 gm 03/13/24 13:18 Glucose Oral Gel 15 Gm Of Glucse In 37.5 Gm Tube PO PRN PRN Hypoglycemia Protocol Dextrose 1,000 mls @ 100 mls/hr 03/13/24 13:18 Dextrose
--- NOTE | 2024-03-13 15:30 | ECG_ITS ---
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 Measurements Intervals Bruning Rate: 84 P: 68 RI: 222 QRS: -70 QRSD: 166 T: 85 QT: 450 QTc: 532 Interpretive Statements ELECTRONIC DUAL-CHAMBER PACEMAKER WITH ATRIAL SENSING AND VENTRICULAR PACING ABNORMAL RHYTHM ECG Compared to ECG 03/13/2024 10:54:08 DUAL-CHAMBER PACEMAKER HAS BEEN IMPLANTED AND IS FUNCTIONING NORMALLY Electronically Signed On 03-14-2024 07:58:01 CDT by Smith Castelan M.D.
--- NOTE | 2024-03-13 15:31 | WPDCARDPROC ---
Cardiac Cath Procedure Note Date of procedure:: 03/13/24 Performing physician:: Smith Castelan MD Indication:: complete heart block Brief clinical history:: this is a 68-year-old woman without prior cardiac history presented emergency room earlier today with complete heart block. Earlier a transvenous temporary pacemaker was placed in the right femoral vein. An echocardiogram was essentially unremarkable. A permanent pacemaker has now been recommended and is being implanted for ongoing treatment of complete heart block Procedure Procedure performed:: implantation of permanent Biotronik dual-chamber pacemaker removal of temporary transvenous lead Sedation/Medication given:: fentanyl 50 mg Versed 2 mg case start time 2:39 p.m. case end time 3:26 p.m. sedation provided by Rosa Funes RN, trained observer Access site:: left subclavian vein Estimated blood loss:: minimal Procedure note:: patient was brought to the cardiac catheterization lab from the ICU with a temporary pacemaker in the right femoral vein position. The left anterior chest wall was prepped and draped in normal sterile fashion. Anesthesia was injected with 20 cc of lidocaine about 1 in below the clavicle. An incision was then made from the midclavicular line to the deltopectoral groove. Electrocautery was used to provide cutaneous hemostasis and the subcutaneous tissue was down to the level of the prepectoral fascia. Blunt dissection was then used to create a pacemaker pocket inferior to the incision. This was then packed with an antibiotic-soaked 4 x 4. Attention was then turned to venous access. Using 2 separate 6 [place] SafeSheath kits the subclavian vein was punctured twice in the J wires were visualized fluoroscopically and advanced into the level of the right atrium. The 2 pacemaker leads then detailed below were advanced into the venous circulation to the level of the right atrium. Safe sheath were peeled away. Following this attention was turned to positioning the ventricular lead. The stylet was withdrawn and a 3 cc syringe used to J-tip stylet which was then used to steer the left ventricular lead through the RV and out to the PA position. This was replaced with a straight stylet the lead was then withdrawn and placed into the right ventricular apical position. The fixation screw was deployed. The analyzer was used to test the lead and good pacing and sensing performance was demonstrated and a 10 pole stimulus showed no evidence of extracardiac stimulation. Attention was then turned to positioning the atrial lead. The straight stylet was removed and a preformed atrial J stylet was placed into the lead. This was then maneuvered to the right atrial appendage position the fixation screw was deployed upon withdrawal of the stylet the lead tip was fixed into position. Once again the analyzer was used and demonstrated very good pacing and sensing performance. Once again a 10 volt stimulation showed no evidence of extracardiac stimulation. The leads were then secured to the base of the pocket using 2 0 silk ties and the suture sleeves on the leads. The retained sponge was removed. The pocket was irrigated with Ancef infused saline. The permanent pacemaker generator was then connected to leads using the torque wrench and the entire assembly was placed into the newly created pocket. This was closed in layers using 3-0 Vicryl in an interrupted fashion for the subcutaneous tissue and 4-0 Vicryl in a running subcuticular fashion for the skin. the wound was then cleansed and dressed with an Aquacel dressing. The left arm placed in an immobilizer she was taken back to room in stable condition there were no apparent complications. Postop antibiotics and analgesics were ordered as well as chest x-ray and ECG. Findings:: The patient received a permanent Biotronik dual-chamber pacemaker model Amvia Edge [id number], serial number [id number]
[2024-03-13] MEDS: SODIUM CHLORIDE 0.9% IV 1,000 ML 50 ML IV CONT (17:20)
[2024-03-13] MEDS: INSULIN ASPART (*BKC) 100 UNITS/ML SUB-Q (17:28)
[2024-03-13 17:33] LABS: Glucose Point of Care 235 mg/dl (65-105)
[2024-03-13 19:06] LABS: Troponin I 0.183 ng/mL (0.000-0.034)
[2024-03-13 21:43] LABS: Glucose Point of Care 174 mg/dl (65-105)
[2024-03-13] MEDS: ceFAZolin 1 GM/NS 50 ML 1 GM/50 ML BAG IVPB (22:01)
[2024-03-14] VITALS (13 sets, daily range): BP systolic 135–157; BP diastolic 62–78; PULSE 78–96; RESP 18–26; TEMP 36.4–36.8; O2SAT 96–100
[2024-03-14 04:54] LABS: Hematocrit 47.3 % (37.0-47.0); Hemoglobin 14.5 g/dL (12.0-15.0); Mean Corpuscular HGB Conc 30.7 g/dl (32-36); Mean Corpuscular Hemoglobin 31.9 pg (26-34); Mean Platelet Volume 11.5 fl (7.4-10.4); Platelet Count Result 107 k/mm3 (150-375); Red Blood Count 4.55 M/mm3 (4.2-5.4); Red Cell Distribution Width 13.1 % (11.5-14.5); White Blood Count 10.8 K/mm3 (4.5-10.0)
[2024-03-14] MEDS: ceFAZolin 1 GM/NS 50 ML 1 GM/50 ML BAG IVPB (06:05)
[2024-03-14 07:31] LABS: Glucose Point of Care 239 mg/dl (65-105)
[2024-03-14 07:35] LABS: MRSA (PCR) NOT DETECTED (NOT DETECTE)
[2024-03-14] MEDS: INSULIN ASPART (*BKC) 100 UNITS/ML SUB-Q ×3 (07:53→21:04)
--- NOTE | 2024-03-14 08:03 | WPDINTPN ---
Progress Note: A&P Assessment and Plan (1) High-grade atrioventricular block: Code(s): I44.39 - Other atrioventricular block Status: Acute Assessment and Plan: patient presented with symptomatic high-grade AV block. Received transvenous pacer in the ER. She is on beta-torie at home but did not take her medication this morning. electrolytes were acceptable patient was taken to cardiac catheterization lab and underwent transvenous pacemaker placement. Patient became chest pain-free and hemodynamics improved. echo was reviewed by production line assembler at bedside and decision was made to place permanent pacemaker a permanent pacemaker was placed in left anterior chest and patient is improved (2) Diabetes: Code(s): E11.9 - Type 2 diabetes mellitus without complications Status: Acute Assessment and Plan: sliding scale insulin to be continued resume glimepiride Jardiance and metformin diet ordered HbA1c 10.9 shows chronic for control (3) Hypertension: Code(s): I10 - Essential (primary) hypertension Status: Acute Assessment and Plan: resume amlodipine and losartan Plan DVT prophylaxis - SCDs ordered. I anticipate patient will ambulate today Nutrition - diet ordered Code Status - Full Code incentive spirometry. Up in chair. Transfer out of ICU Subjective Date/time seen: 03/14/24 Overnight events reviewed. Afebrile. Patient had permanent pacemaker placed yesterday on room air complains of soreness at the site otherwise do other new complaints. Patient denies fever, chest pain, shortness of breath, cough, nausea vomiting, abdominal pain,, diarrhea, headache or constipation. . All other systems were reviewed and were negative monitor shows paced rhythm. Blood pressure is elevated. Patient is eating her breakfast.. Other Vitals acceptable Review of Systems Review of Systems: All systems reviewed & are unremarkable except as noted in HPI and below ( HPI) Exam Narrative: General: Pt is alert awake and in NAD Lungs/Chest: Trachea central Clear BS B/L, No crackles or wheezing. permanent pacemaker site on the left chest anteriorly appears unremarkable with dressing on it Cardiac: RRR. Normal S1 S2. No murmurs Circulation: bilateral dorsalis pedis pulses are intact and symmetrical. Abdomen: Normal bowel sounds. obese. Soft. NT. ND. Extremities: No clubbing, cyanosis or edema. : Burger in place Neurologic: Follows commands. Moves all 4 extremities PERRL Skin: No Rash Objective Data Vital Signs Vital Signs: Vital Signs - 24 hr 03/13/24 10:52 03/13/24 11:06 03/13/24 11:06 Temperature 36.7 C Pulse Rate 28 L 37 L Pulse Rate [Right Pedal (Dorsalis Pedis) Palpation] Respiratory Rate 18 Blood Pressure 150/50 H Pulse Oximetry 100 Oxygen Delivery Room Air Room Air 03/13/24 11:47 03/13/24 13:22 03/13/24 13:37 Temperature Pulse Rate 58 L 70 Pulse Rate [Right Pedal (Dorsalis Pedis) Palpation] 70 70 Respiratory Rate 20 23 H Blood Pressure 250/28 H 125/64 Pulse Oximetry 94 95 Oxygen Delivery 03/13/24 14:00 03/13/24 14:07 03/13/24 13:20 Temperature Pulse Rate 70 Pulse Rate [Right Pedal (Dorsalis Pedis) Palpation] 70 Respiratory Rate Blood Pressure Pulse Oximetry 95 Oxygen Delivery Room Air 03/13/24 15:30 03/13/24 16:15 03/13/24 16:00 Temperature 36.6 C 36.6 C Pulse Rate 78 79 77 Pulse Rate [Right Pedal (Dorsalis Pedis) Palpation] Respiratory Rate 17 19 Blood Pressure 136/85 136/85 Pulse Oximetry 97 98 Oxygen Delivery 03/13/24 16:00 03/13/24 16:30 03/13/24 16:45 Temperature 36.6 C 36.6 C Pulse Rate 80 78 Pulse Rate [Right Pedal (Dorsalis Pedis) Palpation] Respiratory Rate 23 H 16 Blood Pressure 144/80 H 144/85 H Pulse Oximetry 96 99 Oxygen Delivery Room Air 03/13/24 17:00 03/13/24 18:00 03/13/24 18:00 Temperature 36.6 C 36.7 C Pulse Rat
[2024-03-14] MEDS: amLODIPine BESYLATE 5 MG TABLET 10 MG PO (08:11)
[2024-03-14] MEDS: LOSARTAN POTASSIUM 100 MG TABLET PO (08:11)
[2024-03-14] MEDS: metFORMIN HCL 500 MG TABLET 1000 MG PO ×2 (08:37→17:58)
[2024-03-14] MEDS: EMPAGLIFLOZIN 25 MG TABLET PO (08:37)
[2024-03-14] MEDS: GLIMEPIRIDE 2 MG TABLET 8 MG PO (08:38)
--- NOTE | 2024-03-14 08:38 | PM.PNCARD ---
Progress Note: A&P Assessment and Plan (1) High-grade atrioventricular block: Code(s): I44.39 - Other atrioventricular block Status: Acute (2) Pacemaker: Code(s): Z95.0 - Presence of cardiac pacemaker Status: Acute Plan 68-year-old lady with acquired complete heart block status post implantation of dual-chamber pacemaker yesterday. The device is functioning normally. It is fine with me for her to be discharged later today when her bedrest is completed. She will be seen in my office next week Saturday for dressing removal and then arranging longitudinal follow-up of her pacemaker device. It is unusual that her chief complaint was abdominal pain which in my opinion has nothing to do with her arrhythmia. This seems to have resolved. Smith Castelan MD [facility] Subjective Date/time seen: Date of service: 03/14/24 08:38 Interval history: Follow-up visit in this 68-year-old lady with: Acquired complete heart block status post urgent placement of temporary transvenous pacemaker on arrival and later yesterday placement of permanent dual-chamber pacemaker. These procedures were done uneventfully. Her newly implanted pacemaker is functioning normally and she feels better today. Exam Const: General: comfortable and no acute distress HENMT: Mouth: Yes moist mucous membranes Eyes: Sclera: sclerae normal Neck: Neck: supple and no JVD Other: Normal carotid pulses Resp: Effort & Inspection: normal respiratory effort Auscultation: clear to auscultation bilaterally Other: Pacemaker dressing is clean and dry Cardio: Rate: regular rate Rhythm: regular rhythm Other: No murmur no gallop GI: GI Palp: Yes Soft to palpation Auscultation: normal bowel sounds Skin: General skin exam: normal color Neuro: Other: Alert and oriented x3 Extrem: Other: Good perfusion, no edema Objective Data Vital Signs Vital Signs: Vital Signs - 24 hr 03/13/24 10:52 03/13/24 11:06 03/13/24 11:06 Temperature 36.7 C Pulse Rate 28 L 37 L Pulse Rate [Right Pedal (Dorsalis Pedis) Palpation] Respiratory Rate 18 Blood Pressure 150/50 H Pulse Oximetry 100 Oxygen Delivery Room Air Room Air 03/13/24 11:47 03/13/24 13:22 03/13/24 13:37 Temperature Pulse Rate 58 L 70 Pulse Rate [Right Pedal (Dorsalis Pedis) Palpation] 70 70 Respiratory Rate 20 23 H Blood Pressure 250/28 H 125/64 Pulse Oximetry 94 95 Oxygen Delivery 03/13/24 14:00 03/13/24 14:07 03/13/24 13:20 Temperature Pulse Rate 70 Pulse Rate [Right Pedal (Dorsalis Pedis) Palpation] 70 Respiratory Rate Blood Pressure Pulse Oximetry 95 Oxygen Delivery Room Air 03/13/24 15:30 03/13/24 16:15 03/13/24 16:00 Temperature 36.6 C 36.6 C Pulse Rate 78 79 77 Pulse Rate [Right Pedal (Dorsalis Pedis) Palpation] Respiratory Rate 17 19 Blood Pressure 136/85 136/85 Pulse Oximetry 97 98 Oxygen Delivery 03/13/24 16:00 03/13/24 16:30 03/13/24 16:45 Temperature 36.6 C 36.6 C Pulse Rate 80 78 Pulse Rate [Right Pedal (Dorsalis Pedis) Palpation] Respiratory Rate 23 H 16 Blood Pressure 144/80 H 144/85 H Pulse Oximetry 96 99 Oxygen Delivery Room Air 03/13/24 17:00 03/13/24 18:00 03/13/24 18:00 Temperature 36.6 C 36.7 C Pulse Rate 77 85 81 Pulse Rate [Right Pedal (Dorsalis Pedis) Palpation] Respiratory Rate 15 26 H Blood Pressure 133/73 99/63 L Pulse Oximetry 98 98 Oxygen Delivery 03/13/24 20:00 03/13/24 20:00 03/14/24 00:00 Temperature Pulse Rate 85 Pulse Rate [Right Pedal (Dorsalis Pedis) Palpation] Respiratory Rate Blood Pressure Pulse Oximetry Oxygen Delivery Room Air Room Air 03/14/24 00:00 03/13/24 20:00 03/13/24 21:45 Temperature 37.1 C 37.2 C Pulse Rate 93 80 92 Pulse Rate [Right Pedal (Dorsalis Pedis) Palpation] Respiratory Rate 23 H 24 H Blood Pressure 177/76 H Pulse Oximetry 96 98 Oxygen Deliv
[2024-03-14 08:42] LABS: Albumin Level 3.7 g/dL (3.5-5.1); Alkaline Phosphatase 206 U/L (38-126); Anion Gap 7 mmol/L (4-12); Aspartate Amino Transferase 75 U/L (14-36); Bilirubin,Total 1.1 mg/dL (0.2-1.3); Blood Urea Nitrogen 16 mg/dL (7-17); Calcium 8.5 mg/dL (8.4-10.2); Carbon Dioxide 23 mmol/L (22-30); Chloride 103 mmol/L (98-107); Cholesterol 209 mg/dL (0-200); Estimated CRCL calculation 55 ml/min; Estimated Glomerular Filt Rate > 60; Glucose 359 mg/dL (65-110); HDL Direct 44 mg/dL; Magnesium 1.9 mg/dL (1.6-2.3); Phosphorus 3.4 mg/dL (2.5-4.5); Potassium 3.8 mmol/L (3.4-5.0); Sodium 133 mmol/L (137-145); Triglycerides 318 mg/dL (<150)
[2024-03-14 08:51] LABS: LDL Cholesterol Direct 118 mg/dL
[2024-03-14 08:52] LABS: Alanine Aminotransferase 65 U/L (6-35)
--- NOTE | 2024-03-14 08:56 | PM.IMPN ---
Progress Note: A&P Assessment and Plan (1) High-grade atrioventricular block: Code(s): I44.39 - Other atrioventricular block Status: Acute (2) Diabetes: Code(s): E11.9 - Type 2 diabetes mellitus without complications Status: Acute (3) Hypertension: Code(s): I10 - Essential (primary) hypertension Status: Acute (4) Pacemaker: Code(s): Z95.0 - Presence of cardiac pacemaker Status: Acute Plan (1) High-grade atrioventricular block: Code(s): I44.39 - Other atrioventricular block Status: Acute Assessment and Plan: patient presented with symptomatic high-grade AV block. Received transvenous pacer in the ER. She is on beta-torie at home electrolytes were acceptable patient was taken to cardiac catheterization lab and underwent transvenous pacemaker placement. permanent pacemaker was placed in left anterior chest and patient is improved echocardiogram reports 1. Complete two-dimensional, color flow and Doppler transthoracic echocardiogram is performed. 2. Normal left and right ventricular size and systolic function. 3. No significant valvular abnormalities. 4. Temporary pacemaker lead noted in the right heart chambers. (2) Diabetes: Code(s): E11.9 - Type 2 diabetes mellitus without complications Status: Acute Assessment and Plan: sliding scale insulin to be continued resume glimepiride Jardiance and metformin diet ordered HbA1c 10.9 shows chronic for control (3) Hypertension: Code(s): I10 - Essential (primary) hypertension Status: Acute Assessment and Plan: resume amlodipine and losartan urine retention On nutrition representative Urinalysis unremarkable start Flomax 0.[address] Burger catheter consult urologist for evaluation treatment DVT prophylaxis - SCDs ordered. Nutrition - diet ordered Code Status - Full Code incentive spirometry. Up in chair. Transfer out of ICU to medical floor Subjective Date/time seen: 03/14/24 08:56 Interval history: I saw exam patient in the ICU, patient denies chest pain, palpitation, short of breath. But patient has urinary retention, urinalysis unremarkable Exam Narrative: GENERAL: Pleasant, in no acute distress. Well-nourished. - EYES: EOMI. Anicteric. - HENT: Moist mucous membranes. - LUNGS: Clear to auscultation bilaterally, no wheezing, rhonchi, or rales. pacemaker pouch is well dressed, no active bleeding - CARDIOVASCULAR: Regular rate and rhythm. No murmur. No JVD. - ABDOMEN: Soft, non-tender and non-distended. No palpable masses. - EXTREMITIES: No edema. Peripheral pulses 2+. Non-tender. - NEUROLOGIC: No focal neurological deficits. CN II-XII grossly intact. - PSYCHIATRIC: Awake, Alert and oriented x 3. Appropriate mood and affect. - SKIN: No rashes or lesions. Warm. - LYMPH: No cervical lymphadenopathy. Objective Data Vital Signs Vital Signs: Vital Signs - 24 hr 03/13/24 10:52 03/13/24 11:06 03/13/24 11:06 Temperature 98.1 F Pulse Rate 28 L 37 L Pulse Rate [Right Pedal (Dorsalis Pedis) Palpation] Respiratory Rate 18 Blood Pressure 150/50 H Pulse Oximetry 100 Oxygen Delivery Room Air Room Air 03/13/24 11:47 03/13/24 13:22 03/13/24 13:37 Temperature Pulse Rate 58 L 70 Pulse Rate [Right Pedal (Dorsalis Pedis) Palpation] 70 70 Respiratory Rate 20 23 H Blood Pressure 250/28 H 125/64 Pulse Oximetry 94 95 Oxygen Delivery 03/13/24 14:00 03/13/24 14:07 03/13/24 13:20 Temperature Pulse Rate 70 Pulse Rate [Right Pedal (Dorsalis Pedis) Palpation] 70 Respiratory Rate Blood Pressure Pulse Oximetry 95 Oxygen Delivery Room Air 03/13/24 15:30 03/13/24 16:15 03/13/24 16:00 Temperature 97.8 F 97.8 F Pulse Rate 78 79 77 Pulse Rate [Right Pedal (Dorsalis Pedis) Palpation] Respiratory Rate 17 19 Blood Pressure 136/85 136/85 Pulse Oximetry
[2024-03-14 11:48] LABS: Glucose Point of Care 262 mg/dl (65-105)
--- NOTE | 2024-03-14 13:09 | PC.NURSE ---
Dr. Johnson updated on urine retention, straight cath x1, UA sample to be sent.
--- NOTE | 2024-03-14 13:35 | PC.NURSE ---
Plan of care discussed with patient and family. Reiterated to family patient's outpatient colonoscopy would not likely be rescheduled for this admission. Explained why patient was straight cath and a sample sent to lab and the plan o care based on those results. Patient and family verbalized understanding.
[2024-03-14 13:45] LABS: Appearance Urine Clear (Clear); Bilirubin Urine Negative (Negative); Blood Urine Negative (Negative); Color Urine Yellow (Yellow); Glucose Urine UA 3+ mg/dL (Negative); Ketones Urine Negative (Negative); Leukocyte Esterase Ur Negative LEU/UL (Negative); Nitrate Urine Negative (Negative); Protein Urine Negative (Negative); Urobilinogen Urine 0.2 mg/dL (<2.0); pH Urine 7.5 (5.0-9.0)
[2024-03-14 13:46] LABS: Add Urine Microscopic? NO
--- NOTE | 2024-03-14 15:05 | PC.NURSE ---
Plan of care discussed with Dr. Gonzales, Urology team.
--- NOTE | 2024-03-14 15:28 | PC.NURSE ---
Patient will be off bedrest at 1530, will travel for 2V chest Xray, then attempt to void via bedside commode on return to ICU.
[2024-03-14 16:51] LABS: Glucose Point of Care 200 mg/dl (65-105)
--- NOTE | 2024-03-14 17:20 | ADMGEN ---
This patient, Diana Singh, was admitted to 3 [facility] Surg Room 310-01 @ 1720. Patient/family oriented to hospital policies and general routines including ID bracelet, bed and alarms, visiting hours, pain management, procedures, bathroom and other care routines, personal items, smoking policy, room service/diet, and visiting hours. Information on how to activate the Rapid Response Team has been discussed. Patient/Family are encouraged to report perceived risks to care and to ask questions if they do not understand what they are told or what they should do.
--- NOTE | 2024-03-14 17:30 | PC.NURSE ---
This patient, Diana Singh, was transferred to [facility] via wheelchair without issue on 03/14/24 at 1720. Personal belongings sent with patient. Report given to Rochelle Anne. Appropriate documentation sent with patient.
[2024-03-14 20:11] LABS: Glucose Point of Care 223 mg/dl (65-105)
[2024-03-15 03:40] VITALS: BP 121/68; PULSE 86; RESP 16; TEMP 36.4; O2SAT 97
[2024-03-15 06:21] LABS: Hematocrit 46.3 % (37.0-47.0); Hemoglobin 14.8 g/dL (12.0-15.0); Mean Corpuscular Hemoglobin 31.3 pg (26-34); Mean Corpuscular Volume 97.9 fl (80-100); Mean Platelet Volume 10.5 fl (7.4-10.4); Platelet Count Result 258 k/mm3 (150-375); Red Blood Count 4.73 M/mm3 (4.2-5.4); Red Cell Distribution Width 13.1 % (11.5-14.5); White Blood Count 15.5 K/mm3 (4.5-10.0)
[2024-03-15 06:41] LABS: Alanine Aminotransferase 60 U/L (6-35); Albumin Level 3.8 g/dL (3.5-5.1); Alkaline Phosphatase 187 U/L (38-126); Anion Gap 8 mmol/L (4-12); Aspartate Amino Transferase 59 U/L (14-36); Bilirubin,Total 1.1 mg/dL (0.2-1.3); Blood Urea Nitrogen 16 mg/dL (7-17); Calcium 8.7 mg/dL (8.4-10.2); Carbon Dioxide 22 mmol/L (22-30); Chloride 107 mmol/L (98-107); Estimated CRCL calculation 54 ml/min; Estimated Glomerular Filt Rate > 60; Glucose 117 mg/dL (65-110); Magnesium 2.1 mg/dL (1.6-2.3); Phosphorus 4.6 mg/dL (2.5-4.5); Potassium 3.7 mmol/L (3.4-5.0); Sodium 137 mmol/L (137-145)
[2024-03-15 07:33] LABS: Glucose Point of Care 125 mg/dl (65-105)
[2024-03-15] MEDS: EMPAGLIFLOZIN 25 MG TABLET PO (08:49)
[2024-03-15] MEDS: GLIMEPIRIDE 2 MG TABLET 8 MG PO (08:49)
[2024-03-15] MEDS: TAMSULOSIN HCL 0.4 MG CAPSULE PO (08:50)
[2024-03-15] MEDS: metFORMIN HCL 500 MG TABLET 1000 MG PO (08:50)
[2024-03-15] MEDS: LOSARTAN POTASSIUM 100 MG TABLET PO (08:50)
[2024-03-15 08:51] VITALS: BP 130/69
[2024-03-15] MEDS: amLODIPine BESYLATE 5 MG TABLET 10 MG PO (08:51)
--- NOTE | 2024-03-15 09:26 | PM.DS ---
DS: Admitting Diagnosis Discharge Date 03/15/2024 Admitting Diagnosis High-grade atrioventricular block, diabetes, hypertension DS: Discharge Diagnosis Discharge Diagnosis (1) High-grade atrioventricular block: Code(s): I44.39 - Other atrioventricular block Status: Acute (2) Diabetes: Code(s): E11.9 - Type 2 diabetes mellitus without complications Status: Acute (3) Hypertension: Code(s): I10 - Essential (primary) hypertension Status: Acute (4) Pacemaker: Code(s): Z95.0 - Presence of cardiac pacemaker Status: Acute (5) Urinary retention with incomplete bladder emptying: Code(s): R33.9 - Retention of urine, unspecified Status: Acute DS: Summary Hospital Course Hospital Course: This is a 68-year-old female patient was admitted to the hospital after discovery of third-degree heart block in the setting of chest pain nausea vomiting weakness. Patient had temporary pacer placed in the emergency department transvenous and was taken to cardiac catheterization lab for permanent pacemaker placement. She was admitted to the ICU and after cardiac catheterization was able to be downgraded to medical floor. She would have been discharged yesterday but had urinary retention requiring catheterization. Since then catheter is been removed patient is urinating well postvoid residual less than 100. Urology saw patient and is okay with discharge. Patient awake alert oriented pain controlled. Status at Discharge Cognitive/behavioral status at discharge: Awake alert oriented and pleasant Functional status at discharge: independent ambulation Overall status at discharge: patient is progressing back to baseline Time Spent with Patient Time attestation: Total time spent providing and/or coordinating discharge services: 45 minutes Time spent: Greater than 30 minutes Exam Narrative: GENERAL: Awake alert oriented in no acute distress. HEAD: Normocephalic, atraumatic. ENT:? Mucous membranes moist. CHEST: Clear to auscultation.? No respiratory distress. Left chest pacemaker site covered with clean dry and intact bandage HEART: Regular rate and rhythm. ? Normal peripheral pulses. ABDOMEN: Soft, nontender, nondistended. EXTREMITIES: Normal range of motion. No peripheral edema. SKIN: Warm dry normal color NEURO: Alert and oriented x3. PSYCH: Normal mood and affect DS: Data Data Completed and Pending Completed studies during hospitalization: Multiple chest x-rays Labs on day of discharge: Labs from last 24 hours 06/09/24 06/09/24 06/08/24 07:27 06:16 19:57 WBC 15.5 H RBC 4.73 Hgb 14.8 Hct 46.3 MCV 97.9 D MCH 31.3 MCHC 32.0 RDW 13.1 Plt Count 258 D MPV 10.5 H Sodium 137 Potassium 3.7 Chloride 107 Carbon Dioxide 22 Anion Gap 8 BUN 16 Creatinine 0.80 Estim Creat Clear Calc 54 Estimated GFR > 60 Glucose 117 H POC Capillary Glucose 125 H 223 H Calcium 8.7 Phosphorus 4.6 H Magnesium 2.1 Total Bilirubin 1.1 AST 59 H ALT 60 H Alkaline Phosphatase 187 H Total Protein 8.0 Albumin 3.8 Urine Color Urine Appearance Urine pH Ur Specific Emerson Urine Protein Urine Glucose (UA) Urine Ketones Ur Blood (Man) Urine Nitrate Urine Bilirubin Urine Urobilinogen Leukocyte Esterase Rfl 03/14/24 03/14/24 03/14/24 16:49 13:23 11:42 WBC RBC Hgb Hct MCV MCH MCHC RDW Plt Count MPV Sodium Potassium Chloride Carbon Dioxide Anion Gap BUN Creatinine Estim Creat Clear Calc Estimated GFR Glucose POC Capillary Glucose 200 H 262 H Calcium Phosphorus Magnesium Total Bilirubin AST ALT Alkaline Phosphatase Total Protein Albumin Urine Color Yellow Urine Appearance Clear Urine pH 7.5 Ur Specific Emerson 1.020 Urine Protein
[2024-03-15 11:32] LABS: Glucose Point of Care 194 mg/dl (65-105)
--- NOTE | 2024-03-15 11:45 | WPDURCON ---
Assessment and Plan Assessment and plan (1) Urinary retention with incomplete bladder emptying: Code(s): R33.9 - Retention of urine, unspecified Status: Acute Assessment and Plan: 68-year-old female with recent pacemaker and subsequent urinary retention which has now resolved. Urinalysis within normal limits, creatinine within normal limits. -recent postvoid residual have been under 100. Patient states he was urinating well, and her urinalysis have no signs of infection, and kidney function looks appropriate. -therefore no further intervention is required. Please call with any questions or concerns. Urology Consult Note HPI Date Seen: 03/15/24 Requesting Physician: Miguel Ramirez MD Primary Care Provider: Gisela William, Consult Narrative Narrative: Diana Singh is a 68 year old female who we are consulted for urinary retention. The patient had a pacemaker that was placed a couple of days ago and postoperatively she was having trouble with urination. This required straight catheterization a couple of times. Patient notes no issues with urination prior to the procedure. However since then, she has been able to urinate without issue and her postvoid residuals have been under 100. Patient states currently she is not having any major issues with urination as far she can tell. Recent creatinine is 0.8, and urinalysis shows no signs of infection and no blood. History also obtained from her as well PMFSH Past Medical History Medical History CVA (cerebral vascular accident) no residual deficits (2011) Diabetes Dyslipidemia Glaucoma Hypertension Surgical History Surgical History History of bilateral cataract extraction History of tonsillectomy Social History Social History Smoking status: Former smoker Additional smoking assessment comments: quit 10 years ago Alcohol intake: never Substance use: never Do You Feel Safe in your Home?: Yes Lack of Transportation: No Lack of Food: Never True Current Housing: Decline to Answer Concerned About Future Housing: No Difficulty Paying Gas/Electric Bills: No Difficulty Paying for Meds: No Currently Unemployed: No Education: Decline to Answer Difficulty w/ Childcare or Family Care: No Spiritual care concerns: No Meds Home Medications and Allergies Home Medications Medication Instructions Recorded Confirmed Type metformin 500 mg tablet 1,000 mg PO BID 04/28/20 03/13/24 History metoprolol tartrate 50 mg tablet 50 mg PO Q12H 04/28/20 03/13/24 History amlodipine 10 mg tablet (Norvasc) 10 mg PO DAILY 05/20/20 03/13/24 History empagliflozin 25 mg tablet 25 mg PO DAILY 03/13/24 03/13/24 History (Jardiance) glimepiride 4 mg tablet 8 mg PO QAM 03/13/24 03/13/24 History losartan 100 mg tablet 100 mg PO DAILY 03/13/24 03/13/24 History Allergies Allergy/AdvReac Type Severity Reaction Status Date / Time No Known Allergies Allergy Unverified 05/20/20 13:37 Vital Signs Vital Signs - 24 hr 03/14/24 12:00 03/14/24 12:00 03/14/24 12:00 Temperature 36.8 C Pulse Rate 96 89 Respiratory Rate 26 H Blood Pressure 137/72 Pulse Oximetry 100 100 Oxygen Delivery Room Air 03/14/24 14:00 03/14/24 14:00 03/14/24 16:00 Temperature 36.7 C Pulse Rate 86 86 85 Respiratory Rate 20 20 Blood Pressure 157/78 H 142/72 H Pulse Oximetry 96 100 Oxygen Delivery 03/14/24 17:53 03/14/24 17:59 03/14/24 19:18 Temperature 36.4 C 36.6 C Pulse Rate 88 87 Respiratory Rate 20 18 Blood Pressure 135/67 151/62 H Pulse Oximetry 99 97 Oxygen Delivery Room Air 03/14/24 21:00 03/15/24 03:40 03/15/24 08:51 Temperature 36.4 C Pulse Rate 86 Respiratory Rate 16 Blood Pressure 121/68 130/69 Pulse Oximetry 97 Ox
[2024-03-15 14:00] VITALS: BP 121/51; PULSE 91; RESP 16; TEMP 36.3; O2SAT 96
--- NOTE | 2024-03-20 11:24 | PCCDE ---
03/16/24 at 4:15 pm Msg left including call back number
== END 2024-03-15 15:45 | disposition home or self-care (01) | DRG 244 ==
LOC: ANHED 12:10 → ANHICU 12:45 → ANH3MEDSUR 03-14 17:32
PROVIDERS: Hospitalist; Internal Medicine; Specialist; Admitting Provider Internal Medicine; Emergency Provider Emergency Medicine; PCP Family Medicine; Visit Provider Nurse Practitioner
PROC: 5A1223Z Performance of Cardiac Pacing, Continuous (ICD-10-PCS; CPT 33210; principal; 2024-03-13 12:00)
PROC: 0JH606Z Insertion of Pacemaker, Dual Chamber into Chest Subcutaneous Tissue and Fascia, Open Approach (ICD-10-PCS; CPT 33208; principal; 2024-03-13 14:00)
DX: I44.2 Atrioventricular block, complete (principal); R33.9 Retention of urine, unspecified; E11.9 Type 2 diabetes mellitus without complications; E78.00 Pure hypercholesterolemia, unspecified; I10 Essential (primary) hypertension; Z79.84 Long term (current) use of oral hypoglycemic drugs; Z87.891 Personal history of nicotine dependence; Z86.73 Personal history of transient ischemic attack (TIA), and cerebral infarction without residual deficits; Z98.41 Cataract extraction status, right eye; Z98.42 Cataract extraction status, left eye
CPT/HCPCS: 33208; 33210; 36415; 71045; 71046; 80053; 80061; 81003; 82948; 83036; 83690; 83735; 84100; 84484; 85025; 85027; 85610; 85730; 87641; 93005; 93306; 96374; 96375; 99285; A9270; C1779; C1785; C1894; J0461; J0690; J1644; J1815; J2250; J3010; J7030; J7040

== ENCOUNTER 2024-04-08 12:49 | Outpatient (CLI) | payer MEDICARE, SELFPAY ==
--- NOTE | ~2024-04-08 | US_ITS ---
EXAMINATION: US right upper quadrant DATE: 04/08/2024 13:06 INDICATION: Abnormal liver function tests. TECHNIQUE: Multiple grayscale and Doppler ultrasound images of the abdomen were obtained. COMPARISON: Ultrasound 12/12/2015, chest CT 02/07/2024 FINDINGS: The visualized portions of the head and body of the pancreas are normal. The liver demonstr ates steatosis and surface nodularity, consistent with cirrhosis. There is normal flow in main portal vein. The gallbladder is normal in size and contains a gallstone. No gallbladder wall thickening or sonographic Wilson sign. The common duct is normal and measures 4 mm. IMPRESSION: 1. Cirrhosis of the liver. 2. Cholelithiasis. Reviewed, dictated and finalized at location A.
== END 2024-04-08 12:50 ==
LOC: GOSHIMG 12:50
PROVIDERS: PCP Family Medicine; Visit Provider Family Medicine
DX: R74.01 Elevation of levels of liver transaminase levels (principal); K74.60 Unspecified cirrhosis of liver; K80.20 Calculus of gallbladder without cholecystitis without obstruction
CPT/HCPCS: 76705

== ENCOUNTER 2024-04-16 01:28 | Day surgery (SDC) | payer MEDICARE, SELFPAY ==
[2024-04-07 14:17] VITALS: BMI 27.8
[2024-04-16 12:47] VITALS: BP 120/59; PULSE 69; RESP 19; TEMP 36.2; O2SAT 100; BMI 27.3
[2024-04-16 13:05] LABS: Glucose Point of Care 199 mg/dl (65-105)
[2024-04-16] MEDS: LACTATED RINGERS 1,000 ML 150 ML IV CONT (13:05)
--- NOTE | 2024-04-16 13:17 | WPDANESEPPF ---
Anes - Initial Pre Proc Eval Procedure: Operation Date: 04/16/24 14:00 Proposed Procedures p Colonoscopy - Ramirez Julien MD Date/Time: 04/16/24 13:17 Surgeon: Ramirez Julien MD Pre Op Diagnosis: Other fecal abnormalities Patient Data Age: 68 Gender: F Height: 1.57 m Weight: 67.9 kg Last Vital Signs Temp 97.2 F L 04/16/24 12:47 Pulse 69 04/16/24 12:47 Resp 19 04/16/24 12:47 BP 120/59 L 04/16/24 12:47 Pulse Ox 100 04/16/24 12:47 O2 Del Method Room Air 04/16/24 12:47 Allergies Allergy/AdvReac Type Severity Reaction Status Date / Time No Known Allergies Allergy Verified 04/16/24 12:46 Home Medications Medication Instructions Recorded Confirmed Type metformin 500 mg tablet 1,000 mg PO BID 04/28/20 04/16/24 History metoprolol tartrate 50 mg tablet 50 mg PO Q12H 04/28/20 04/16/24 History amlodipine 10 mg tablet (Norvasc) 10 mg PO DAILY 05/20/20 04/16/24 History empagliflozin 25 mg tablet 25 mg PO DAILY 03/13/24 04/16/24 History (Jardiance) glimepiride 4 mg tablet 8 mg PO QAM 03/13/24 04/16/24 History losartan 100 mg tablet 100 mg PO DAILY 03/13/24 04/16/24 History hydrocodone 5 mg-acetaminophen 325 1 tablet PO Q6H PRN severe pain 03/15/24 04/16/24 Rx mg tablet #20 tabs tamsulosin 0.4 mg capsule 0.4 mg PO QAM #30 caps 03/15/24 04/16/24 Rx Laboratory Tests 04/16/24 13:01 POC Capillary Glucose 199 H mg/dl (65-105) Patient hx anesthesia problems: none Family hx anesthesia problems: none Results Review: All pre-operative results and documents have been reviewed as part of the pre-operative evaluation. [facility] Past Medical History Medical History CVA (cerebral vascular accident) no residual deficits (2011) Diabetes Dyslipidemia Glaucoma Hypertension Surgical History Surgical History History of bilateral cataract extraction History of tonsillectomy Social History Social History Smoking packs per day: 1 Smoking cigarettes per day: 20.0 Years smoked: 40 Smoking pack-years: 40.00 Smoking status: Former smoker Tobacco type: cigarettes Additional smoking assessment comments: quit 10 years ago Alcohol intake: current Substance use: never Substance use type: does not use Do You Feel Safe in your Home?: Yes Lack of Transportation: No Lack of Food: Never True Current Housing: Decline to Answer Concerned About Future Housing: No Difficulty Paying Gas/Electric Bills: No Difficulty Paying for Meds: No Currently Unemployed: No Education: Decline to Answer Difficulty w/ Childcare or Family Care: No Living arrangements: with family Spiritual care concerns: No Anes - Eval Final PreProcedure Day of Procedure 04/16/24 13:17 Patient weight: normal Heart: regular rate and rhythm Lungs: clear to auscultation Airway: Mallampati scale class II Neurological: alert and oriented Last oral intake: >/= 8 hours ASA classification: III Emergent: no Anesthetic plan: proceed Anesthesia type and monitoring: general GIVS and standard monitoring Results Review: All pre-operative results and documents have been reviewed as part of the pre-operative evaluation. Informed Consent: The patient's anesthetic plan and its attendant risks and benefits were discussed with the patient/family/POA. Questions were solicited and answers provided to the satisfaction of the patient/family/POA.
--- NOTE | 2024-04-16 13:27 | PM.HPGS ---
History of Present Illness History of Present Illness Consent: Risks, benefits, and alternatives have been discussed and questions answered. Patient agrees to proceed with procedure. Chief complaint: Other fecal abnormalities Narrative: Diana Singh is a 68 year old female here for first screening colonoscopy Review of Systems Review of Systems: All systems reviewed & are unremarkable except as noted in HPI and below PMFSH Past Medical History Medical History (Updated 04/16/24 @ 13:30 by Ramirez Julien MD) Colon cancer screening CVA (cerebral vascular accident) no residual deficits (2011) Diabetes Dyslipidemia Glaucoma Hypertension Surgical History Surgical History History of bilateral cataract extraction History of tonsillectomy Social History Social History Smoking packs per day: 1 Smoking cigarettes per day: 20.0 Years smoked: 40 Smoking pack-years: 40.00 Smoking status: Former smoker Tobacco type: cigarettes Additional smoking assessment comments: quit 10 years ago Alcohol intake: current Substance use: never Substance use type: does not use Do You Feel Safe in your Home?: Yes Lack of Transportation: No Lack of Food: Never True Current Housing: Decline to Answer Concerned About Future Housing: No Difficulty Paying Gas/Electric Bills: No Difficulty Paying for Meds: No Currently Unemployed: No Education: Decline to Answer Difficulty w/ Childcare or Family Care: No Living arrangements: with family Spiritual care concerns: No Meds Home Medications and Allergies Home Medications Medication Instructions Recorded Confirmed Type metformin 500 mg tablet 1,000 mg PO BID 04/28/20 04/16/24 History metoprolol tartrate 50 mg tablet 50 mg PO Q12H 04/28/20 04/16/24 History amlodipine 10 mg tablet (Norvasc) 10 mg PO DAILY 05/20/20 04/16/24 History empagliflozin 25 mg tablet 25 mg PO DAILY 03/13/24 04/16/24 History (Jardiance) glimepiride 4 mg tablet 8 mg PO QAM 03/13/24 04/16/24 History losartan 100 mg tablet 100 mg PO DAILY 03/13/24 04/16/24 History hydrocodone 5 mg-acetaminophen 325 1 tablet PO Q6H PRN severe pain 03/15/24 04/16/24 Rx mg tablet #20 tabs tamsulosin 0.4 mg capsule 0.4 mg PO QAM #30 caps 03/15/24 04/16/24 Rx Allergies Allergy/AdvReac Type Severity Reaction Status Date / Time No Known Allergies Allergy Verified 04/16/24 12:46 Vital Signs Vital Signs - 24 hr 04/16/24 12:47 Temperature 97.2 F L Pulse Rate 69 Respiratory Rate 19 Blood Pressure 120/59 L Pulse Oximetry 100 Oxygen Delivery Room Air Exam Const: General: comfortable and no acute distress HENMT: Face/Nose/Sinus: Normal nares present Eyes: General: appearance normal, both eyes and all related structures Neck: Neck: no JVD Resp: Auscultation: clear to auscultation bilaterally Cardio: Rate: regular rate Rhythm: regular rhythm GI: Inspection: non-distended GI Palp: Yes Soft to palpation Skin: General skin exam: normal color Neuro: General: gait normal Speech: normal speech Extrem: General: normal to inspection Psych: Mental Status: mental status grossly normal Assessment and Plan Assessment and plan (1) Colon cancer screening: Code(s): Z12.11 - Encounter for screening for malignant neoplasm of colon Status: Acute Assessment and Plan: colonoscopy
[2024-04-16 13:51] VITALS: BP 97/47; PULSE 61; RESP 24; O2SAT 97
[2024-04-16 14:01] VITALS: BP 105/48; PULSE 62; RESP 20; O2SAT 98
[2024-04-16 14:11] VITALS: BP 116/54; PULSE 61; RESP 22; O2SAT 99
== END 2024-04-16 14:20 | disposition home or self-care (01) ==
PROVIDERS: PCP Family Medicine; Visit Provider Internal Medicine Gastroenterology
PROC: 0DJD8ZZ Inspection of Lower Intestinal Tract, Via Natural or Artificial Opening Endoscopic (ICD-10-PCS; CPT 45378; principal; 2024-04-16 14:00)
DX: Z12.11 Encounter for screening for malignant neoplasm of colon (principal); D12.3 Benign neoplasm of transverse colon; K63.5 Polyp of colon; I10 Essential (primary) hypertension; E78.5 Hyperlipidemia, unspecified; E11.9 Type 2 diabetes mellitus without complications; Z79.85 Long-term (current) use of injectable non-insulin antidiabetic drugs; Z79.84 Long term (current) use of oral hypoglycemic drugs; Z79.891 Long term (current) use of opiate analgesic; Z98.890 Other specified postprocedural states; Z87.891 Personal history of nicotine dependence; Z86.79 Personal history of other diseases of the circulatory system
CPT/HCPCS: 45385; 82948; 88305; J2704; J7120

== ENCOUNTER 2025-05-04 22:38 | Inpatient (IN) | payer MEDICARE, SELFPAY ==
--- NOTE | ~2025-05-04 | CT_ITS ---
EXAMINATION: CTA chest PE protocol DATE: 05/05/2025 06:49 CDT INDICATION: Left-sided chest pain TECHNIQUE: Computed tomographic angiography (CTA) of the chest was performed with 100 mL Omnipaque-35 0 intravenous contrast. The dose-length product was 370.66 mGy-cm. Maximum intensity projection 3D-re constructions of the aorta and other arteries were constructed by the technologist on a separate work station. Automated exposure control and iterative reconstruction technique were employed. COMPARISON: CT dated 02/07/2024. FINDINGS: Study is technically adequate without evidence for pulmonary embolism. Heart size normal. N o significant pleural or pericardial effusion. No thoracic lymphadenopathy. Gallstone. There is corti luiz thinning of the right kidney. Small hiatal hernia. There is bibasilar dependent atelectasis. No s uspicious pulmonary nodules or masses. No focal pneumonia. No pneumothorax. Mild thoracic spondylosis . IMPRESSION: 1. No acute cardiopulmonary disease. No evidence for pulmonary embolism. Reviewed, dictated and finalized at location B.
--- NOTE | ~2025-05-04 | XR_ITS ---
EXAMINATION: XR chest 1V portable Exam Date/Time: 05/04/2025 23:02 CDT HISTORY: chest pain Comparison: 03/14/2024. RESULT: Lines, tubes, and devices: None. Lungs and pleura: Clear. Cardiomediastinal silhouette: Stable. Other: No acute osseous or upper abdominal finding. IMPRESSION: No acute cardiopulmonary process. Reviewed, dictated and finalized at location K.
--- OUTSIDE RECORDS SUMMARY | 2025-05-04 22:40 | XMS_ITS | Clinical Summary ---
Author Organization [facility] Address [address] [place] [address] Phone Care Team Providers Care Flat Bed Knitter Name Role Phone Gisela William MD Primary Care Provider + Tracy Quinonez MD Unavailable Allergies No known active allergies Medications amLODIPine (NORVASC) 10 MG Tablet 1 po qday 0 Active Jardiance 25 MG Tablet Take 1 tablet(s) every day by oral route. 4 Active glimepiride (AMARYL) 4 MG Tablet 2 po qAM with breakfast 4 Active HYDROcodone-sophia taminophen (NORCO) 5-325 MG Tablet Take 1 Tablet by mouth every 6 hours as needed. 4 Active losartan (COZAAR) 100 MG Tablet Take 1 Tablet by mouth daily. 4 Active metFORMIN (GLUCOPHAGE) 500 MG Tablet TAKE 2 TABLET TWICE DAILY with breakfast and dinner 0 Active metoprolol tartrate (LOPRESSOR) 50 MG Tablet Take 1 Tablet by mouth 2 times daily. 0 Active tamsulosin (FLOMAX) 0.4 MG Capsule Take 1 Capsule by mouth every morning. 4 Active traZODone (DESYREL) 100 MG Tablet TAKE 1/2 TO 1 TABLET BY MOUTH EVERY NIGHT AT BEDTIME NEEDED FOR INSOMNIA Active Glucose Blood (MoviePassuch Ultra) StripIndication s:Type 2 diabetes mellitus with other circulatory complication, without long-term current use of insulin Once a day 100 Each 3 4 Active Blood Glucose Monitoring Suppl (ONE TOUCH ULTRA 2) w/Device KitIndications: Type 2 diabetes mellitus with other circulatory complication, without long-term current use of insulin Check blood glucose before breakfast or dinner 1 Each 4 Active Blood Glucose Monitoring Suppl (True Metrix Air Glucose Meter) w/Device KitIndications: Type 2 diabetes mellitus with other circulatory complication, without long-term current use of insulin 1 Kit by Does not apply route daily. Test blood glucose 1x daily. E11.59, non-insulin dependent 1 Kit 4 Active Glucose Blood (True Metrix Blood Glucose Test) StripIndication s:Type 2 diabetes mellitus with other circulatory complication, without long-term current use of insulin Test blood glucose 1x daily. E11.59, non-insulin dependent 100 Strip 3 4 Active TRUEplus Lancets 33G MiscIndications :Type 2 diabetes mellitus with other circulatory complication, without long-term current use of insulin 1 Lancet by Does not apply route daily. Test blood glucose 1x daily. E11.59, non-insulin dependent 100 Each 3 4 Active Tirzepatide (Mounjaro) 7.5 MG/0.5ML Solution Auto-injector 7.5 mg by Subcutaneous route once a week. 6 mL 1 5 Active ondansetron (ZOFRAN-ODT) 4 MG TABLET DISPERSIBLE Take 1 Tablet by mouth every 8 hours as needed for Nausea - 1st line. 10 Tablet 5 Active Active Problems Problem Noted Date Diagnosed Date Diabetes mellitus 05/27/2024 Overweight 05/27/2024 Encounters Date Type Department Care Team Description 03/31/2025 Telephone [facility] - [place] [address] [place] [address] Tracy Quinonez MD Care Management 02/25/2025 Telephone [facility] Endocrinology [facility] [address] [place] [address] Tracy Quinonez MD Results 02/24/2025 2:00 PM CDT Office Visit [facility] - [place] [address] [place] [address] Tracy Quinonez MD Type 2 diabetes mellitus with other specified complication, without long-term current use of insulin (Primary Dx); Overweight; Medication side effect; New medication added Discharge Disposition: Discharged to home or Selfcare 02/22/2025 Travel from Last 3 Months Immunizations Immunization Administration Dates Next Due Influenza Vaccine greater than 3 yrs 11/28/2021 Influenza Vaccine less than 3 yrs 07/27/2022, Influenza Vaccine, Quadrivalent, PF 08/01/2020,1 ,08/07/2018 Pneumococcal conjugate PCV20 , polysaccharide [id number] conjugate, adjuvant, PF 07/27/2022 Sars-cov-2 (Covid-19) Vaccin e, Unspecified 08/04/2022,10/08/2021,01/09/2021,12/18 Zoster Vaccine Recombinant 02/07/2024 Social History Tobacco Use Types Packs/Day Years Used Date Smoking Tobacco: Never Passive Smoke Exposure: Never Smokeless Tobacco: Never Tobacco Cessation:Counseling Given: Not Answered Alcohol Use Standard Drinks/Week Comments Never 0 (1 standard drink = 0.6 oz pur e alcohol) Sexually Active Control Partners Comments Not Currently Comments No Sex and Gender Information Value Date Recorded Sex Assigned at Not on file Legal Sex Female 3:07 PM CDT Gender Identity Not on file Sexual Orientation Not on file Last Filed Vital Signs Vital Sign Reading Time Taken Comments Blood Pressure 118/70 02/24/2025 2:06 PM CDT Pulse 71 02/24/2025 2:06 PM CDT Temperature 36.4 C (97.5 F) 02/24/2025 2:06 PM CDT Respiratory Rate 18 02/24/2025 2:06 PM CDT Oxygen Saturation 98% 02/24/2025 2:06 PM CDT Inhaled Oxygen Concentration - - Weight 67.6 kg (149 lb) 02/24/2025 2:06 PM CDT Height 157.5 cm (5' 2) 04/23/2024 1:56 PM CDT Body Mass Index 27.25 04/23/2024 1:56 PM CDT Plan of Treatment Upcoming Encounters Date Type Department Care Team (Late st Contact Info) Description 08/26/2025 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 Office Visit [facility] - Endocrinology [facility] [address] [place] [address] Tracy Quinonez MD [address] [address] Health Maintenance Due Date Last Done Comments DEXA Bone Density 1955 Diabetes: Eye Exam 1955 Hepatitis C Virus (HCV) Screening 1955 Mammogram 1955 TdaP Immunization 1956 Diabetes: Nephropathy Screening 1974 Cologuard 2001 Colonoscopy 2001 Colorectal Cancer Screening 2001 Immunochemical Fecal Occult Blood 2001 Respiratory Syncytial Virus (RSV) Immunization (Adult) (1 - Risk 60-74 years 1-dose series) 2016 Zoster Immunization (2 of 2) 04/03/2024 02/07/2024 SARS-COV-2 Immunization ( season) 2024 08/15/2023, 08/04/2022, 02/07/2022, Additional history exists Influenza Immunization (#1) 06/07/202506/2023, 07/27/2022, 11/28/2021, Additional history exists Diabetes: Hemoglobin A1c 08/27/2025 025, 11/26/2024, 08/26/2024, Additional history exists Diabetes: Foot Exam 02/24/2026 02/24/2025 Pneumococcal Immunization (50+ years) Completed 07/27/2022 Hepatitis B Immunization Aged Out No longer eligible based on patient's age to complete this topic Human Papillomavirus (HPV) Immunization Aged Out No longer eligible based on patient's age to complete this topic Meningococcal Immunization (ACWY) Aged Out No longer eligible based on patient's age to complete this topic Rotavirus Immunization Aged Out No lo nger eligible based on patient's age to complete this topic Procedures Procedure Name Priority Date/Time Associated Diagnosis Comments POCT GLYCOSYLATED HEMOGLOBIN Routine 02/24/2025 2:09 PM CDT Type 2 diabetes mellitus with other specified complication, without long-term current use of insulin from Last 3 Months Results * (ABNORMAL) POCT GLYCOSYLATED HEMOGLOBIN (02/24/2025 2:09 PM CDT) HGB-A1C 6.6(A) 4 - 6 % Blood 02/24/2025 2:09 PM CDT Tracy Quinonez MD POINT OF CARE TESTING (MANUAL) F inal Result from Last [address] [place] [address] MEDICARE C [employer] Care Teams Flat Bed Knitter Relationship Specialty Start Date End Date Gisela William MD [address] [place] [address] PCP - General Family Medicine 02/24/24 Tracy Quinonez MD [address] [address] Consulting Physician Endocrinology 04/14/24
--- OUTSIDE RECORDS SUMMARY | 2025-05-04 22:40 | XMS_ITS | Clinical Summary ---
Author Organization [facility] Address [address] [place] [address] Care Team Providers Care Funeral Home Manager Name Role Phone Og Truong MD Primary Care Provider [phone] Source Comments [facility],non-owned Affiliates and Associated Physician Practices is amultiple site organization consisting of ambulatory clinics and hospital sitesin [place], [place], [place] and [place]. This disclosure is being madepursuant to the Care Everywhere program and may not contain all information available regarding this patient. 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 Gender Identity Not on file Sexual Orientation Not on file Last Filed Vital Signs Vital Sign Reading Time Taken Comments Blood Pressure 110/63 03/05/2014 10:32 AM CDT Pulse 78 01/23/2014 1:54 PM CDT Temperature 36.6 C (97.9 F) 03/05/2014 10:32 AM CDT Respiratory Rate 16 01/23/2014 1:54 PM CDT Oxygen Saturation 98% 01/23/2014 1:54 PM CDT Inhaled Oxygen Concentration - - Weight 58.1 kg (128 lb) 03/05/2014 10:32 AM CDT Height 157.5 cm (5' 2) 03/05/2014 10:32 AM CDT Body Mass Index 23.41 03/05/2014 10:32 AM CDT Plan of Treatment Health Maintenance Due Date Last Done Comments BONE DENSITY TESTING 1955 COLOGUARD (AGES 45-75) - COL ON CA SCREENING 1956 COLON MONITORING 1956 COLONOSCOPY - COLON CA SCREENING 1956 CT COLONOGRAPHY - COLON CA SCREENING 1956 Colorectal Cancer Screening 1956 FIT - COLON CA SCREENING 1956 FLEX SIG - COLON CA SCREENING 1956 MAMMOGRAM 1955 MEDICARE AWV 12 MONTHS 1956 HEPATITIS C SCREENING 10/01/1974 DTAP/TDAP/TD VACCINES (1 - Tdap) 1975 PNEUMOCOCCAL VACCINE 50+ (1 of 1 - PCV) 2006 ZOSTER VACCINE (1 of 2) 2006 LIPID TESTING 01/19/2019 01/19/2014 COVID-19 VACCINE (1 - 2023-2 5 season) 2024 DEPRESSION SCREENING 10/07/2024 INFLUENZA VACCINE (#1) 2025 9, 08/07/2018 Respiratory Syncytial Virus (RSV) Vaccine Pt: or over 60 yrs (1 - 1-dose 75+ series) 2031 HEPATITIS B VACCINE Aged Out No longe r eligible based on patient's age to complete this topic HIB VACCINE Aged Out No longer eligi ble based on patient's age to complete this topic HPV VACCINE Aged Out No longer eligi ble based on patient's age to complete this topic MENINGOCOCCAL (Group B) VACCINE SHARED DECISION-MAKING Aged Out No longer eligible based on patient's age to complete this topic MENINGOCOCCAL GROUPS A/C/Y/W VACCINE Aged Out No longer eligible b ased on patient's age to complete this topic Procedures Procedure Name Priority Date/Time Associated Diagnosis Comments LIPID PROFILE Routine 01/19/2014 4:39 PM CDT from Last 3 Months or Most Recently Relevant to Health Maintenance Results * (ABNORMAL) LIPID PROFILE (01/19/2014 4:39 PM CDT) Cholesterol Total 257(H) <200 mg/dL [facility] HDL 49 >40 mg/dL [facility] Comment: ATP III Classification of HDL Cholesterol: <40 mg/dL: Considered a major risk factor. >60 mg/dL: Considered a negative risk factor. LDL Calculated 169(H) <100 mg/dL [facility] Comment: ATP III Classification of LDL Cholesterol: <100 mg/dL: Optimal 100 - 129 mg/dL: Near Optimal/Above Optimal 130 - 159 mg/dL: Borderline High 160 - 189 mg/dL: High >190 mg/dL: Very High Triglycerides 197(H) <150 mg/dL [facility] Comment: ATP III Classification of Triglycerides: <150 mg/dL: Normal 150 - 199 mg/dL: Borderline High 200 - 400 mg/dL: High >500 mg/dL: Very High Blood specimen (specimen) BLOOD SPECIMEN / Unknown 01/19/2014 4:39 PM CDT 01/19/2014 4:43 PM CDT [facility] - CHEMISTRY ORDERABLES Fin al Result [address] [phone] from Last 3 Months or Most Recently Relevant to Health Maintenance Insurance MEDICARE * Guarantor: DIANA SINGH Account Type Relation to Patient Date of Phone Billing Address Personal/Family [address] [place] [address] [employer] SELF PAY NO INSURANCE Member Subscriber Plan / Payer (Ef fective for All Dates) Name:Diana Singh Member ID:Not on file Relation to Subscriber:Not on file Name:AJITDIANA Subscriber ID:Not on file (Home) Address: [address] [place] [address] Payer ID:Not on file Group ID:Not on file Type:Self Pay Address: [place], [place] * Guarantor: AJITDUNCANDIANA Account Type Relation to Patient Date of Phone Billing Address Personal/Family [address] [place] [address] [employer] SELF PAY NO INSURANCE Member Subscriber Plan / Payer (Ef fective for All Dates) Name:Diana Singh Member ID:Not on file Relation to Subscriber:Not on file Name:AJITDIANA Subscriber ID:Not on file (Home) Address: [address] [place] [address] Payer ID:Not on file Group ID:Not on file Type:Self Pay Address: [place], [place] * Guarantor: DIANA SINGH Account Type Relation to Patient Date of Phone Billing Address Personal/Family [address] [place] [address] [employer] [facility] Care Address: [address] [address] SELF PAY NO INSURANCE Member Subscriber Plan / Payer (Ef fective for All Dates) Name:Diana Singh Member ID:Not on file Relation to Subscriber:Not on file Name:DIANA SINGH Subscriber ID:Not on file (Home) Address: [address] [place] [address] Payer ID:Not on file Group ID:Not on file Type:Self Pay Address: [place], [place] Care Teams Funeral Home Manager Relationship Specialty Start Date End Date Og Truong MD [address] [place] [address] PCP - General 01/19/14
--- OUTSIDE RECORDS SUMMARY | 2025-05-04 22:40 | XMS_ITS | Clinical Summary ---
Author Organization [facility] [address] [facility] [address] Address [address] [place] [address] Care Team Providers Care Inside Technical Sales Representative Name Role Phone Gisela William MD Primary Care Provider + Allergies No known active allergies Medications tamsulosin (FLOMAX) 0.4 mg extended release capsule Take 1 capsule (0.4 mg total) by mouth every morning 4 Active HYDROcodone-sophia taminophen (NORCO) 5-325 mg per tablet Take 1 tablet by mouth every 6 (six) hours as needed 4 Active metFORMIN (Glucophage) 500 mg tablet Take 1 tablet (500 mg total) by mouth every 12 hours 0 Active Lopressor 50 mg immediate release tablet Take 1 tablet (50 mg total) by mouth every 12 hours 0 Active Norvasc 10 mg tablet Take 1 tablet (10 mg total) by mouth daily 0 Active glimepiride (AMARYL) 4 mg tablet Take 1 tablet (4 mg total) by mouth daily before breakfast 4 Active losartan (COZAAR) 100 mg tablet Take 1 tablet (100 mg total) by mouth daily 4 Active empagliflozin (JARDIANCE) 25 mg tablet 1 tablet (25 mg total) Active Active Problems Problem Noted Date Diagnosed Date Visit for wound check 03/24/2024 Cardiac pacemaker in situ 03/16/2024 Overview (03/16/2024): Biotronik Amvia Edge Dual Pacemaker. Dx; CHB. DOI 03/13/2024- Biotronik remote. Complete heart block 03/13/2024 Encounters Date Type Department Care Team Description 02/16/2025 10:15 AM CDT Ancillary Procedure [facility] Cardiology [address] [facility] [address] [place] [id number] Cardiac pacemaker in situ [Z95.0] (Primary Dx); Complete heart block (HCC) from Last 3 Months Social History Tobacco Use Types Packs/Day Years Used Date Smoking Tobacco: Former Cigarettes Q uit: 2011 Tobacco Cessation:Counseling Given: Not Answered Comments Unknown Sex and Gender Information Value Date Recorded Sex Assigned at Not on file Legal Sex Female 4:02 AM SILK BRUSHER Gender Identity Not on file Sexual Orientation Not on file Obstetrics History Last Filed Vital Signs Vital Sign Reading Time Taken Comments Blood Pressure 96/60 10/20/2024 12:59 PM SILK BRUSHER Pulse 81 10/20/2024 12:59 PM SILK BRUSHER Temperature - - Respiratory Rate - - Oxygen Saturation 97% 10/20/2024 12: 59 PM SILK BRUSHER Inhaled Oxygen Concentration - - Weight 70.2 kg (154 lb 12.8 oz) 025 12:59 PM SILK BRUSHER Height 157.5 cm (5' 2) 10/20/2024 12:5 9 PM SILK BRUSHER Body Mass Index 28.31 10/20/2024 12:59 PM SILK BRUSHER Plan of Treatment Health Maintenance Due Date Last Done Comments Breast Cancer Screening-Mammogram 1955 Colon Cancer Screening-Colonoscopy 1955 Depression Screening 1956 Fall Risk Assessment 1955 Hepatitis C Screening 1956 Osteoporosis Screening-Bone Density Scan 1956 DTaP/Tdap/Td Vaccine (1 - Tdap) 1967 Hepatitis B Screening 1974 Well Visit 65+ 2021 Zoster Vaccine (2 of 2) 04/03/2024 02/07/2024 Covid-19 Vaccine (2023-2 5 season) 2024 08/15/2023, 08/04/2022, 02/07/2022, Additional history exists Influenza Vaccine (#1) 2025 , 07/27/2022, 11/28/2021, Additional history exists Pneumococcal vaccine 65+ Completed 07/27/2022, 11/08 Procedures Procedure Name Priority Date/Time Associated Diagnosis Comments DEVICE CHECK - REMOTE Routine 02/16/2025 2:26 PM CDT Complete heart block (HCC) from Last 3 Months Results * DEVICE CHECK - REMOTE (02/16/2025 2:26 PM CDT) Anatomical Region Laterality Modality Other Narrative 03/08/2025 6:51 AM CDT Biotronik Amvia Edge Dual Pacemaker. Dx; CHB. DOI 03/13/2024-Annelise. Biotronik remote. Routine DDD Pacemaker Remote. Transmission attached. Battery status: Ok V, 90% remaining battery life to IVET. Stable lead impedances, pacing and sensing thresholds. 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 AP-1%, POUCH MAKING MACHINE OPERATOR-100%. No AT/AF episodes noted. No Ventricular high rate episodes detected. Medications: Lopressor. See scanned report. Office pacemaker follow up: 08/11/2025. Biotronik remote f/u 05/25/2025.. Alesia Smith RN Smith Castelan MD CV CARDIAC SERVICES PROC [facility] Final Result from Last [address] [place] [address] [place] [address] [employer] HMO Care Teams Inside Technical Sales Representative Relationship Specialty Start Date End Date Gisela William MD [address] [place] [address] [place] [id number] PCP - General Family Medicine 04/06/24
--- OUTSIDE RECORDS SUMMARY | 2025-05-04 22:40 | XMS_ITS | Continuity of Care Document ---
Author Organization [facility] Address [address] [place] [address] Phone Care Team Providers Care Deputy Probation Officer Name Role Phone Lee Stroud MD Unavailable Unavailable Allergies, Adverse Reactions, Alerts Substance Reaction Status Criticality No Known Allergies Active No Inform ation Medications Medication Instructions Dosage Effective Dates (start - stop) Status Comments Lipitor 40 mg tablet take 1 tablet by or al route every day 40 MG - Active metoprolol tartrate 50 mg tablet take 1 tablet by oral route 2 times every day with meals 50 MG - Active Norvasc 10 mg tablet take 1 tablet by or al route every day 10 MG - Active Amaryl 1 mg tablet take 1 tablet by ora l route every day - Active metformin 500 mg tablet take 1 tablet by oral route 2 times every day with morning and evening meals 500 MG - Active Vitamin D2 50,000 unit capsule take 1 capsule by oral route every week - Active Procedures Procedure Date OFFICE/OUTPATIENT VISIT, EST OFFICE/OUTPATIENT VISIT, EST OFFICE/OUTPATIENT VISIT, EST PPPS, subseq visit OFFICE/OUTPATIENT VISIT, EST OFFICE/OUTPATIENT VISIT, EST OFFICE/OUTPATIENT VISIT, EST Initial preventive exam OFFICE/OUTPATIENT VISIT, NEW Advance Directives Directive Yes / No Effective Date File Name No Information Encounters Encounter Description Practice Location Reason(s) For Visit Diagnoses Date Provider Providers Copied on Encounter OFFICE/OUTPA TIENT VISIT, EST [facility], [address], [place], [place], [id number], [place] tel:[phone] [facility] CAD (chief complaint) HTN (chief complaint) HLP (chief complaint) DM (chief complaint) Coronary artery disease of [place] coronary artery without angina pectorisEssential (primary) hypertensionHyperli pidemiaType 2 diabetes mellitus without complications 0 Maximus Howard. [address], [place], [place], [id number] , [place]. [phone] OFFICE/OUTPA TIENT VISIT, [facility], [address], [place], [place], [address], [place] tel:[phone] [facility] DM (chief complaint) HLP (chief complaint) fatty liver1 (chief complaint) CAD (chief complaint) HTN (chief complaint) Type 2 diabetes mellitus without complicationsAbnorm al weight lossEssential (primary) hypertensionCoronar y artery disease of [place] coronary artery without angina pectorisFatty liverHyperlipidemia 0 Maximus Howard. [address], [place], [place], [id number] , [place]. tel:[phone] [facility], [address], [place], [place], [address], [place] tel:[phone] [facility] No Information 0 Maximus Howard. [address], [place], [place], [address] , [place]. tel:[phone] OFFICE/OUTPA TIENT VISIT, [facility], [address], [place], [place], [id number], [place] tel:[phone] [facility] HTN (chief complaint) CAD (chief complaint) HLP (chief complaint) DM (chief complaint) Occlusion and stenosis of bilateral carotid arteriesType 2 diabetes mellitus without complicationsHyperl ipidemiaEssential (primary) hypertensionCoronar y artery disease of [place] coronary artery without angina pectoris 0 Maximus Howard. [address], [place], [place], [address] , [place]. tel:[phone] Referring Provider: Pilar Rebollar [address], [place], [place], [id number]. tel:[phone] OFFICE/OUTPA TIENT VISIT, [facility], [address] [place] [address], [place] tel:[phone] [facility] Physical (chief complaint) Encounter for general adult medical exam w abnormal findingsHyperlipide miaType 2 diabetes mellitus without complicationsAbnorm al weight lossEssential (primary) hypertensionLeukocy tosisDisorder of parathyroid gland, unspecifiedTobacco use 9 Maximus Howard. [address], [place], [place], [address] , [place]. tel:[phone] Referring Provider: Pilar Rebollar [facility] [address], [place], [place], [id number]. tel:[phone] OFFICE/OUTPA TIENT VISIT, [facility], [facility] [address] [place], [address], [place] tel:[phone] [facility] mammo (chief complaint) DM (chief complaint) hematuria1 (chief complaint) PTH (chief complaint) Inconclusive mammogramType 2 diabetes mellitus without complicationsPain in right ankleHyperlipidemia Tobacco useLeukocytosisDiso rder of parathyroid gland, unspecified 8 Maximus Howard. [address], [place], [place], [address] , [place]. [phone] Referring Provider: Pilar Rebollar [address], [place], [place], [id number]. tel:[phone] OFFICE/OUTPA TIENT VISIT, [facility], [address] [place], [address], [place] tel:[phone] [facility] hematuria1 (chief complaint) WBC1 (chief complaint) PTH1 (chief complaint) DM (chief complaint) LFT1 (chief complaint) ankle pain1 (chief complaint) HematuriaLeukocytos isType 2 diabetes mellitus without complicationsFatty liverInconclusive mammogramDisorder of parathyroid gland, unspecifiedPain in rt ankle 8 Maximus Howard. [address], [facility] [address], [place], [place], [address] , [place]. tel:[phone] Referring Provider: Pilar Rebollar [facility] [address], [place], [place], [address]. tel:[phone] OFFICE/OUTPA TIENT VISIT, [facility], [address], [place], [place], [address], [place] tel:[phone] [facility] PHysical (chief complaint) Encounter for general adult medical exam w abnormal findingsPain in right ankleStrokeLeukocyt osisHypokalemiaFatt y liver Maximus Howard. [address], [place], [place], [address] , [place]. tel:[phone] Referring Provider: Pilar Rebollar [facility], [place], [place], [address]. tel:[phone] Family History Family Member Type Diagnosis Age At Onset Sister Problem (finding) Alive and well Mother Problem (finding) of child Father Problem (finding) Hypertension Father Problem (finding) Stroke 65 Payers Payer name Insurance type Covered constitution party ID Authoriza tion(s) No Information Social History Type Description Quantity Date Captured Comments Alcohol Use Details No Caffeine Use Details Unknown Tobacco Use Status Ex-cigarette smoker 020 Smoking Status Former smoker Sex Female Vital Signs Date / Time: Height Weight BMI Pulse Rate Blood Pressure Temperature Respiratory Rate Body Surface Area Head Circumference BMI percentile Pulse Ox Inhaled Ox 5:22 PM 62.00 in 143.00 lbs 26.1 5 kg/m eter (2) 130/70 mm[Hg] Chief Complaint And Reason For Visit From encounter dated '07/04/2020 17:17'. CAD (chief complaint). Description: Pt has CAD Pt denies any chest pain Pt did see cardiology and had negative cardiac stress test Pt denies any chest pain HTN (chief complaint). Description: Pt has HTN. Pt takes norvasc and metoprolol and her bp is stable at home. PT denies any chest pain or headache HLP (chief complaint). Description: Pt has HLP. Pt takes lipitor. Pt denies any myalgia. DM (chief complaint). Description: Pt has poorly controlled DM Pt is noncompliant with endo referral. Pt stopped taking metformin and amaryl recently since she is out. PT denies any polyuria, polydipsia. Plan Of Treatment Date Type Action Status Goal Tobacco cessation counseling completed Goal Tobacco cessation counseling completed Goal Special diet education compl eted Goal Special diet education compl eted Goal Special diet education compl eted Goal Special diet education compl eted Referral Ordered: Noelle Joseph -Allopathic & Osteopathic Physicians : Internal Medicine : Endocrinology, Diabetes & Metabolism (related to Type 2 diabetes mellitus without complications) ordered Referral Ordered: Noelle Joseph -Cardiology (related to Coronary artery disease of [place] coronary artery without angina pectoris) ordered Referral Referred To: Noelle Joseph [address] [place] [address]
[address], [place] [id number] Ordered: Referrals: Allopathic & Osteopathic Physicians : Internal Medicine : Endocrinology, Diabetes & Metabolism. Noelle Joseph. Evaluate and treat ordered Referral Referred To: Noelle Joseph [address] [place] [address]
[address] [place] [phone] Ordered: Referrals: Cardiology. Noelle Joseph. Evaluate and treat ordered Referral Referred To: Oscar Mejia [address] [place] [address], [phone] Ordered: Referrals: Oscar Mejia. Evaluate and treat ordered Referral Ordered: US CAROTID ordered Referral Ordered: Gastroenterology (related to Abnormal weight loss) ordered Referral Ordered: Referrals: Gastroenterology. Evaluate and treat ordered Referral Ordered: CT THORAX W/O DYE ordered Referral Ordered: JOSUÉ SON -Podiatric Medicine & Surgery Service Providers : Swabber (related to Pain in rt ankle) ordered Referral Ordered: MAMMOGRAM, ONE BREAST Right ordered Referral Referred To: JOSUÉ SON [address] [facility] [place], [place], [phone] Ordered: Referrals: Podiatric Medicine & Surgery Service Providers : Swabber. JOSUÉ SON. Evaluate and treat ordered Referral Ordered: MRI JNT OF LWR EXTRE W/O DYE Right ankle ordered Referral Ordered: MAMMOGRAM, SCREENING ordered Referral Ordered: COLONOSCOPY AND BIOPSY ordered History Of Present Illness Encounter Date Complaint History Of Prese nt Illness HTN Pt has HTN. Pt t akes norvasc and metoprolol and her bp is stable at home. PT denies any chest pain or headache CAD Pt has CAD Pt de nies any chest pain Pt did see cardiology and had negative cardiac stress test Pt denies any chest pain DM Pt has poorly co ntrolled DM Pt is noncompliant with endo referral. Pt stopped taking metformin and amaryl recently since she is out. PT denies any polyuria, polydipsia. HLP Pt has HLP. Pt t akes lipitor. Pt denies any myalgia. DM Pt has poorly co ntrolled DM. Pt denies any polyuria, polydipsia Pt denies any blurred vision Pt denies any neuropathy. Pt stopped taking metformin a while back on her own. Pt has been noncompliant with follow up HLP Patient has hype rlipidemia. Patient take Lipitor. Patient needs refill. Patient has slightly elevated triglyceride. Pt denies any myalgia fatty liver1 Patient has very elevated liver function test. Patient denies any abdominal pain or jaundice. Patient has fatty liver. Patient does not drink alcohol. Patient does not have hepatitis. HTN Pt has HTN Pt ta kes metoprolol and norvasc and her bp is stable at home. Pt needs refill CAD Pt has CAD PT de nies any chest pain. DM Pt is noncomplia nt with metformin. PT also does not check her glucose. pT denies any polyuria, polydipsia. Pt has not done lab yet. Pt denies any vision change HLP Pt has HLP Pt ta kes lipitor. Pt denies any myalgia CAD Pt has CAD on ch est CT PT denies any chest pain. Pt told me she had some x ray done for her teeth by her dentist which showed ? carotid stenosis and blockage recently HTN Pt has HTN. Pt t akes norvasc and metoprolol and her bp is around 130/70 at home PT denies any chest pain Physical Pt needs annual physical Pt has Dm but she is not taking metformin Pt is noncompliant Pt denies any polyuria, polydipsia. pt has HTN Pt takes norvasc and also metoprolol and her BP is ok. Pt denies any chest pain or headache. Pt has cataract Pt needs surgical clearance for cataract surgery under monitored anesthesia. Pt has not followed up with me for more than one year. Pt overall feels well. Pt has unintentional weight loss for more than 20 pounds since her last visit. Pt states that she feels full easily pt denies any abd pain or GERD pt denies any appetite loss. Pt denies any nausea, vomiting, blood in stool or change or bowel or bloating. Pt denies any other complaints PTH Patient has elev ated PTH. Patient denies any throat pain or dysphagia. Patient has normal calcium. hematuria1 Patient denies a ny UTI symptoms. Patient is postmenopausal. Patient denies any vaginal bleeding. DM Pt takes metform in 500 mg. Pt does not want to check her glucose now. Pt denies any polyuria, polydipsia mammo Pt denies any br est issue Pt had benign breast ultrasound. PTH1 Pt has high PTH. Her ionized calcium is ok WBC1 Pt has mild high WBC Pt did have some viral symptoms last week when she did lab. Pt denies any fever, chill. LFT1 Pt has mild high LFT. Pt denies any abdominal pain. Pt has fatty liver. Pt denies any abdominal pain DM Pt has DM. Pt wa s never told that she has DM in the past. Pt has mild polyuria, especially at night. hematuria1 Pt has mild dvaid turia. Pt denies any UTI symptoms. Pt is postmeno and she denies any vaginal bleeding ankle pain1 Pt c/o posterior right ankle pain. Pt has spur around aculeus tendon area. Pt states that mobic did not help her. Pt has dull pain, worse at night. PHysical Pt needs annual physical pt c/o right medial and posterior ankle pain for 3-4 months Pt denies any swelling Pt denies any injury. Pt notices some tingling feeling around right medial ankle area as well Pt denies any calf pain Pt denies any recent travel or bedrest. Pt states that pain is worse at night. Pt denies any pain during the day. Pt denies any claudication. Pt recently went to ER and she had lab done which showed low KCL, low calcium and also high glucose and leukocytosis. Pt is not anemic. Pt states that she feels that she has to move the right foot at night. 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 Pt denies any other complaints Instructions Date Instruction Additional Infor mation Special diet education Related t o Body mass index (BMI) 26.0-26.9, adult Increase activity. Related to Hy perlipidemia Follow a low sodium diet. Relate d to Hyperlipidemia Special diet education Related t o Body mass index (BMI) 30.0-30.9, adult Weight management Related to Michel kocytosis Increase physical activity Relat ed to Leukocytosis Special diet education Related t o Body mass index (BMI) 30.0-30.9, adult Special diet education Related t o Body mass index (BMI) 30.0-30.9, adult Increase physical activity Relat ed to Encounter for general adult medical exam w abnormal findings Weight management Related to Enc ounter for general adult medical exam w abnormal findings Assessments Type Assessment Date assessment Coronary artery dise ase of [place] coronary artery without angina pectoris assessment Essential (primary) hypertension assessment Hyperlipidemia assessment Type 2 diabetes mellitus without complications Mental Status Date Cognitive Assessment Orientation - [place] ed to time, place, person, situation.
--- OUTSIDE RECORDS SUMMARY | 2025-05-04 22:40 | XMS_ITS | Data Portability ---
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 dailydown 5 pounds intentiona llycheck labs update 02/03/24: a1c improved in check labs Hyperlipidemia 79440653 E78.5 Z79.899 Essential hypertension 91235623 I10 not in good controladd losartan 100 mg dailycheck labsf/u in 4 weeks or sooner if needed Vitamin D deficiency 347 92947 E55.9 [id number] Ignacio Esquivel MD [address] [address] 03/19/2024 09:48:07 03/19/2024 10:59:04 Permanent cardiac pacemaker 1238780423 05920 Z95.0 Continue FU with cardiologi Jose to ER for chest pain, N/V, arm pain, surgical site issues. [id number] Ignacio Esquivel MD [address] [address] 06/19/2024 11:18:35 06/19/2024 11:49:56 Cirrhosis of liver 69432545 K74.60 Scheduled to see GI Essential hypertension 00734095 I10 Well controlled with current regimen Permanent cardiac pacemaker 5440693726 75644 Z95.0 Continue FU with cardiologi Jose to ER for chest pain, N/V, arm pain, surgical site issues. [id number] Audrey Greer MD [facility] General Surgery [address] [address] 07/22/2024 14:04:49 07/22/2024 14:42:07 Liver enzymes level above reference range 667307071 R74.01 Hepatitis C screening 41 4696829 Z11.59 [id number] Audrey Greer MD [facility] General Surgery [address] [address] 08/26/2024 13:57:27 08/26/2024 14:21:46 Liver enzymes level above reference range 200854616 R74.01 [id number] Ignacio Esquivel MD [address] [place] [address] 01/15/2025 14:01:09 01/15/2025 14:39:31 Adult health examination 811107325 Z00.00 Patient is overall healthyHe[facility] diet and exercisePa tie questions answered Insomnia 701876033 G47.0 0 States difficulty sleeping sometimes Screening for osteoporosis 823705374 Z13.820 Diabetes mellitus 045046 09 E11.9 Sees endocrine Hyperlipidemia 35078780 E78.5 Z79.899 Well controlled , will check labs as below Hypertensive disorder 38 344110 I10 Well controlled [id number] Audrey Greer MD [facility] General Surgery [address] [address] 01/27/2025 14:26:49 01/27/2025 15:15:44 Liver enzymes level above reference range 081813164 R74.01 [id number] Audrey Greer MD [facility] General Surgery [address] [address] 03/03/2025 15:49:58 03/03/2025 16:03:45 Liver enzymes level above reference range 651922090 R74.01 SX ARE C/W JUDGE/ MASH Health Concerns Section Related Observation LastModified by Organization Detai ls LastModified Time None Recorded Concern Status LastModified by Organization Details LastModified Time None Recorded Advance Directives Directive N: Payers Insurance Date Sequence Insurance Name Policy Number Policy Barney Covered Member ID Barney Member ID Guarantor Name 03/16/2025 1 [employer] (MEDICARE REPLACEMENT/ ADVANTAGE - HMO) Diana Singh [id number] Diana Singh OBGyn Episode No OBEpisode recorded.
--- OUTSIDE RECORDS SUMMARY | 2025-05-04 22:40 | XMS_ITS | Referral Summary ---
Author Organization [facility] [address] [facility] [address] Address [address] [place] [address] Care Team Providers Care Rn Hemo Dialysis Name Role Phone Gisela William MD Primary Care Provider + Encounters Date Type Department Care Team Description 02/16/2025 10:15 AM CDT Ancillary Procedure [facility] Medical Group Cardiology [address] [address] Cardiac pacemaker in situ [Z95.0] (Primary Dx); Complete heart block (HCC) from Last 3 Months Allergies No known active allergies Medications tamsulosin [...] Pacemaker. Dx; CHB. DOI 03/13/2024-Annelise. Biotronik remote. Complete heart block 03/13/2024 Social History Tobacco Use Types Packs/Day Years Used Date Smoking Tobacco: Former Cigarettes Q uit: 2011 Tobacco Cessation:Counseling Given: Not Answered Comments Unknown Sex and Gender Information Value Date Recorded Sex Assigned at Not on file Legal Sex Female 4:02 AM SCHOOL BUS MONITOR Gender Identity Not on file Sexual Orientation Not on file Last Filed Vital Signs Vital Sign Reading Time Taken Comments Blood Pressure 96/60 10/20/2024 12:59 PM SCHOOL BUS MONITOR Pulse 81 10/20/2024 12:59 PM SCHOOL BUS MONITOR Temperature - - Respiratory Rate - - Oxygen Saturation 97% 10/20/2024 12: 59 PM SCHOOL BUS MONITOR Inhaled Oxygen Concentration - - Weight 70.2 kg (154 lb 12.8 oz) 025 12:59 PM SCHOOL BUS MONITOR Height 157.5 cm (5' 2) 10/20/2024 12:5 9 PM SCHOOL BUS MONITOR Body Mass Index 28.31 10/20/2024 12:59 PM SCHOOL BUS MONITOR Plan of Treatment Not on file Procedures Procedure Name Priority Date/Time Associated Diagnosis [...] impedances, pacing and sensing thresholds. Presenting rhythm: -CLAIM SERVICE REPRESENTATIVE. AP-1%, CLAIM SERVICE REPRESENTATIVE-100%. No AT/AF episodes noted. No Ventricular high rate episodes detected. Medications: Lopressor. See scanned report. Office pacemaker follow up: 08/11/2025. Biotronik remote f/u 05/25/2025.. Alesia Smith, RN Smith Castelan MD [facility] PROC EDURES Final Result from Last 3 Months Insurance [employer] MEDICARE HMO Care Teams Rn Hemo Dialysis Relationship Specialty Start Date End Date Gisela William MD [address] [address] PCP - General Family Medicine 04/06/24
--- NOTE | 2025-05-04 22:44 | ECG_ITS ---
Test Date: 2025-05-04 22:46:41 Measurements Intervals Friend Rate: 85 P: 59 CA: 219 QRS: -69 QRSD: 152 T: 93 QT: 417 QTc: 496 Interpretive Statements SINUS RHYTHM WITH ATRIAL SENSING AND VENTRICULAR PACING ELECTRONIC VENTRICULAR PACEMAKER ABNORMAL RHYTHM ECG Compared to ECG 03/13/2024 16:05:29 No significant changes Electronically Signed On 05-05-2025 08:14:37 CDT by Smith Castelan M.D.
[2025-05-04 22:48] VITALS: BP 116/52; PULSE 84; RESP 12; O2SAT 99
[2025-05-04 22:50] VITALS: BP 116/52; PULSE 85; RESP 26; TEMP 36.7; O2SAT 98
[2025-05-04 23:01] VITALS: BP 125/66; PULSE 84; RESP 29; O2SAT 98
[2025-05-04 23:05] LABS: Hematocrit 40.2 % (37.0-47.0); Hemoglobin 13.3 g/dL (12.0-15.0); Immature Granulocyte Percent A 0.6 % (0-0.5); Lymphocytes Absolute Auto 3.11 K/mm3 (0.9-3.2); Mean Corpuscular HGB Conc 33.1 g/dl (32-36); Mean Corpuscular Hemoglobin 30.8 pg (26-34); Mean Corpuscular Volume 93.1 fl (80-100); Nucleated Red Blood Cells Absolute Auto 0.000 K/mm3 (0.0-0.012); Nucleated Red Blood Cells Perc 0.0 % (0.0-0.2); Platelet Count Result 334 k/mm3 (150-375); Red Blood Count 4.32 M/mm3 (4.2-5.4); White Blood Count 12.4 K/mm3 (4.5-10.0)
--- NOTE | 2025-05-04 23:15 | PC.NURSE ---
Pt presents to ED c/o 05/16 L side chest pain, non radiating, onset 10pm while lying in bed. Pt denies n/v, SOB and dizziness. Pt states she is a diabetic, was prescribed Jardiance but has not been taking it the last couple months due to adverse reaction.
[2025-05-04 23:17] LABS: INR 1.1; Prothrombin Time 14.3 Seconds (11.1-14.7)
[2025-05-04 23:18] LABS: Partial Thromboplastin Time 29.3 Seconds (22.3-36.8)
[2025-05-04] MEDS: ASPIRIN 81 MG CHEWABLE TABLET 324 MG PO (23:30)
[2025-05-04 23:31] VITALS: BP 120/66; PULSE 93; O2SAT 97
--- OUTSIDE RECORDS SUMMARY | 2025-05-04 23:36 | XMS_ITS | Clinical Summary ---
Author Organization [facility] [address] [facility] 162 Address [address] [place] [address] Care Team Providers Care Clerical And Office Support Workers Name Role Phone Gisela William MD Primary [...] Description 02/16/2025 10:15 AM CDT Ancillary Procedure [facility] Medical Group Cardiology [address] [facility] [address] [place] [address] Cardiac pacemaker in situ [Z95.0] (Primary Dx); Complete heart block (HCC) from Last 3 Months Social History Tobacco Use Types Packs/Day Years Used Date Smoking Tobacco: Former Cigarettes Q uit: 2011 Tobacco Cessation:Counseling Given: Not Answered Comments Unknown Sex and Gender Information Value Date Recorded Sex Assigned at Not on file Legal Sex Female 4:02 AM PROGRAM MANAGEMENT INTERN Gender Identity Not on file Sexual Orientation Not on file Obstetrics History Last Filed Vital Signs Vital Sign Reading Time Taken Comments Blood Pressure 96/60 10/20/2024 12:59 PM PROGRAM MANAGEMENT INTERN Pulse 81 10/20/2024 12:59 PM PROGRAM MANAGEMENT INTERN Temperature - - Respiratory Rate - - Oxygen Saturation 97% 10/20/2024 12: 59 PM PROGRAM MANAGEMENT INTERN Inhaled Oxygen Concentration - - Weight 70.2 kg (154 lb 12.8 oz) 025 12:59 PM PROGRAM MANAGEMENT INTERN Height 157.5 cm (5' 2) 10/20/2024 12:5 9 PM PROGRAM MANAGEMENT INTERN Body Mass Index 28.31 10/20/2024 12:59 PM PROGRAM MANAGEMENT INTERN Plan of Treatment Health Maintenance Due Date [...] impedances, pacing and sensing thresholds. Presenting rhythm: -PLASTER PATTERN CASTER. AP-1%, PLASTER PATTERN CASTER-100%. No AT/AF episodes noted. No Ventricular high rate episodes detected. Medications: Lopressor. See scanned report. Office pacemaker follow up: 08/11/2025. Biotronik remote f/u 05/25/2025.. Alesia Smith RN Smith Castelan MD [facility] PROC [facility] Final Result from Last [address] [place] [address] [place] [address] [employer] MEDICARE HMO Care Teams Clerical And Office Support Workers Relationship Specialty Start Date End Date Gisela William MD [address] [place] [address] [place] [id number] PCP - General Family Medicine 04/06/24
--- OUTSIDE RECORDS SUMMARY | 2025-05-04 23:36 | XMS_ITS | Clinical Summary ---
Author Organization [facility] Address [address] [place] [address] Phone Care Team Providers Care Signalman Name Role Phone Gisela William MD Primary [...] BEDTIME NEEDED FOR INSOMNIA Active Glucose Blood (Infouch Ultra) StripIndication s:Type 2 diabetes mellitus with [...] Type Department Care Team Description 03/31/2025 Telephone [facility] Endocrinology - [place] [address] [place] [address] Tracy Quinonez MD Care Management 02/25/2025 Telephone [facility] Endocrinology [facility] [address] [place] [address] Tracy Quinonez MD Results 02/24/2025 2:00 PM CDT Office Visit [facility] Endocrinology - [place] [address] [place] [address] Tracy Quinonez MD Type 2 [...] 08/01/2020,1 ,08/07/2018 Pneumococcal conjugate PCV20 , polysaccharide VMI988 conjugate, adjuvant, PF 07/27/2022 Sars-cov-2 (Covid-19) Vaccin [...] st Contact Info) Description 08/26/2025 2:00 PM TRANSPORT SPECIALIST Office Visit [facility] - Endocrinology [facility] [address] [place] [address] Tracy Quinonez MD [address] [address] Health Maintenance Due Date Last Done Comments [...] Result from Last [address] [place] [address] MEDICARE C [employer] Care Teams Signalman Relationship Specialty Start Date End Date Gisela William MD [address] [place] [address] PCP - General Family Medicine 02/24/24 Tracy Quinonez MD [address] [address] Consulting Physician Endocrinology 04/14/24
--- OUTSIDE RECORDS SUMMARY | 2025-05-04 23:36 | XMS_ITS | Continuity of Care Document ---
Author Organization [facility] Address [address] [facility] [address] [place] [address] Phone Care Team Providers Care Organization Development Consultant Name Role Phone Lee Stroud MD Unavailable Unavailable Allergies, Adverse Reactions, Alerts Substance Reaction Status Criticality No Known Allergies Active No Inform ation Medications Medication Instructions Dosage Effective Dates (start - stop) Status Comments metformin 500 mg tablet take 1 tablet by oral route 2 times every day with morning and evening meals 500 MG - Active Amaryl 1 mg tablet take 1 tablet by ora l route every day - Active Norvasc 10 mg tablet take 1 tablet by or al route every day 10 MG - Active metoprolol tartrate 50 mg tablet take 1 tablet by oral route 2 times every day with meals 50 MG - Active Lipitor 40 mg tablet take 1 tablet by or al route every day 40 MG - Active Vitamin D2 50,000 unit [...] Copied on Encounter OFFICE/OUTPA TIENT VISIT, EST [facility] Medicine, [address], [place], [place], [id number], [place] tel:[phone] [facility] CAD (chief complaint) HTN (chief complaint) HLP (chief complaint) DM (chief complaint) Coronary artery disease of [place] coronary artery without angina pectorisEssential (primary) hypertensionHyperli pidemiaType 2 diabetes mellitus without complications 0 Maximus Howard. [address], [place], [place], [address] , [place]. [phone] OFFICE/OUTPA TIENT VISIT, [facility], [address], [place], [place], [address], [place] tel:[phone] [facility] DM (chief complaint) HLP (chief complaint) fatty liver1 (chief complaint) CAD (chief complaint) HTN (chief complaint) Type 2 diabetes mellitus without complicationsAbnorm al weight lossEssential (primary) hypertensionCoronar y artery disease of [place] coronary artery without angina pectorisFatty liverHyperlipidemia 0 Maximus Howard. [address], [place], [place], [address] , [place]. tel:[phone] [facility], [address], [place], [place], [address], [place] tel:[phone] [facility] No Information 0 Maximus Howard. [address], [address], [place], [place], [address] , [place]. tel:[phone] OFFICE/OUTPA TIENT VISIT, [facility], [address], [place], [place], [address], [place] tel:[phone] [facility] HTN (chief complaint) CAD (chief complaint) HLP (chief complaint) DM (chief complaint) Occlusion and stenosis of bilateral carotid arteriesType 2 diabetes mellitus without complicationsHyperl ipidemiaEssential (primary) hypertensionCoronar y artery disease of [place] coronary artery without angina pectoris 0 Maximus Howard. [address], [address], [place], [place], [address] , [place]. tel:[phone] Referring Provider: Pilar Rebollar [address], [place], [place], [id number]. tel:[phone] OFFICE/OUTPA TIENT VISIT, [facility], [address] [place], [address], [place] tel:[phone] [facility] Physical (chief complaint) Encounter for general adult medical exam w abnormal findingsHyperlipide miaType 2 diabetes mellitus without complicationsAbnorm al weight lossEssential (primary) hypertensionLeukocy tosisDisorder of parathyroid gland, unspecifiedTobacco use 9 Maximus Howard. [address], [address], [place], [place], [address] , [place]. tel:[phone] Referring Provider: Pilar Rebollar [facility] A, [place], [place], [id number]. tel:[phone] OFFICE/OUTPA TIENT VISIT, [facility], [facility] [address], [address], [place] tel:[phone] [facility] mammo (chief complaint) DM (chief complaint) hematuria1 (chief complaint) PTH (chief complaint) Inconclusive mammogramType 2 diabetes mellitus without complicationsPain in right ankleHyperlipidemia Tobacco useLeukocytosisDiso rder of parathyroid gland, unspecified 8 Maximus Howard. [address], [address], [place], [place], [address] , [place]. [phone] Referring Provider: Pilar Rebollar [address], [place], [place], [address]. tel:[phone] OFFICE/OUTPA TIENT VISIT, [facility], [address] [place], [address], [place] tel:[phone] [facility] hematuria1 (chief complaint) WBC1 (chief complaint) PTH1 (chief complaint) DM (chief complaint) LFT1 (chief complaint) ankle pain1 (chief complaint) HematuriaLeukocytos isType 2 diabetes mellitus without complicationsFatty liverInconclusive mammogramDisorder of parathyroid gland, unspecifiedPain in rt ankle 8 Maximus Howard. [address], [facility] A, [place], [place], [address] , [place]. tel:[phone] Referring Provider: Pilar Rebollar [facility] A, [place], [place], [id number]. tel:[phone] OFFICE/OUTPA TIENT VISIT, [facility], [address], [place], [place], [address], [place] tel:[phone] [facility] PHysical (chief complaint) Encounter for general adult medical exam w abnormal findingsPain in right ankleStrokeLeukocyt osisHypokalemiaFatt y liver Maximus Howard. [address], [address], [place], [place], [address] , [place]. tel:[phone] Referring Provider: Pilar Rebollar [facility], [place], [place], [id number]. tel:[phone] Family History Family Member Type Diagnosis Age At Onset Sister Problem (finding) Alive and well Mother Problem (finding) of child Father Problem (finding) Hypertension Father Problem (finding) Stroke 65 Payers Payer name Insurance type Covered alliance party ID Authoriza tion(s) No Information Social [...] -Cardiology (related to Coronary artery disease of [place] coronary artery without angina pectoris) ordered Referral Referred To: Noelle Joseph [address] [place] [address]
[address], [place] [phone] Ordered: Referrals: Allopathic & Osteopathic Physicians : Internal Medicine : Endocrinology, Diabetes & Metabolism. Noelle Joseph. Evaluate and treat ordered Referral Referred To: Noelle Joseph [address] [place] [address]
[address] [place] [phone] Ordered: Referrals: Cardiology. Noelle Joseph. Evaluate and treat ordered Referral Referred To: Oscar Mejia [address] [place] [address], [phone] Ordered: Referrals: Oscar Mejia. Evaluate and treat ordered Referral Ordered: US CAROTID ordered Referral Ordered: Gastroenterology (related to Abnormal weight loss) ordered Referral Ordered: Referrals: Gastroenterology. Evaluate and treat ordered Referral Ordered: CT THORAX W/O DYE ordered Referral Ordered: JOSUÉ SON -Podiatric Medicine & Surgery Service Providers : Salad Bar Clerk (related to Pain in rt ankle) ordered Referral Ordered: MAMMOGRAM, ONE BREAST Right ordered Referral Referred To: JOSUÉ SON [address] [facility] [place], [place], [phone] Ordered: Referrals: Podiatric Medicine & Surgery Service Providers : Salad Bar Clerk. JOSUÉ SON. Evaluate and treat ordered Referral Ordered: MRI JNT OF LWR EXTRE W/O DYE Right ankle ordered Referral Ordered: MAMMOGRAM, SCREENING ordered Referral Ordered: COLONOSCOPY AND BIOPSY ordered History Of Present Illness Encounter Date Complaint History Of Prese nt Illness HLP Pt has HLP. Pt t akes lipitor. Pt denies any myalgia. DM Pt has poorly co ntrolled DM Pt is noncompliant with endo referral. Pt stopped taking metformin and amaryl recently since she is out. PT denies any polyuria, polydipsia. CAD Pt has CAD Pt de nies any chest pain Pt did see cardiology and had negative cardiac stress test Pt denies any chest pain HTN Pt has HTN. Pt t akes norvasc and metoprolol and her bp is stable at home. PT denies any chest pain or headache CAD Pt has CAD PT de nies any chest pain. HTN Pt has HTN Pt ta kes metoprolol and norvasc and her bp is stable at home. Pt needs refill fatty liver1 Patient has very elevated liver function test. Patient denies any abdominal pain or jaundice. Patient has fatty liver. Patient does not drink alcohol. Patient does not have hepatitis. HLP Patient has hype rlipidemia. Patient take Lipitor. Patient needs refill. Patient has slightly elevated triglyceride. Pt denies any myalgia DM Pt has poorly co ntrolled DM. Pt denies any polyuria, polydipsia Pt denies any blurred vision Pt denies any neuropathy. Pt stopped taking metformin a while back on her own. Pt has been noncompliant with follow up HTN Pt has HTN. Pt t akes norvasc and metoprolol and her bp is around 130/70 at home PT denies any chest pain CAD Pt has CAD on ch est CT PT denies any chest pain. Pt told me she had some x ray done for her teeth by her dentist which showed ? carotid stenosis and blockage recently HLP Pt has HLP Pt ta kes lipitor. Pt denies any myalgia DM Pt is noncomplia nt with metformin. PT also does not check her glucose. pT denies any polyuria, polydipsia. Pt has not done lab yet. Pt denies any vision change Physical Pt needs annual physical Pt has [...] or bloating. Pt denies any other complaints mammo Pt denies any br est issue Pt had benign breast ultrasound. DM Pt takes metform in 500 mg. Pt does not want to check her glucose now. Pt denies any polyuria, polydipsia hematuria1 Patient denies a ny UTI symptoms. Patient is postmenopausal. Patient denies any vaginal bleeding. PTH Patient has elev ated PTH. Patient denies any throat pain or dysphagia. Patient has normal calcium. ankle pain1 Pt c/o posterior right ankle pain. Pt has spur around aculeus tendon area. Pt states that mobic did not help her. Pt has dull pain, worse at night. hematuria1 Pt has mild david turia. Pt denies any UTI symptoms. Pt is postmeno and she denies any vaginal bleeding DM Pt has DM. Pt wa s never told that she has DM in the past. Pt has mild polyuria, especially at night. LFT1 Pt has mild high LFT. Pt denies any abdominal pain. Pt has fatty liver. Pt denies any abdominal pain WBC1 Pt has mild high WBC Pt did have some viral symptoms last week when she did lab. Pt denies any fever, chill. PTH1 Pt has high PTH. Her ionized calcium is ok PHysical Pt needs annual physical pt c/o [...] adult Increase physical activity Relat ed to Leukocytosis Weight management Related to Michel kocytosis Special diet education Related t o Body mass index (BMI) 30.0-30.9, adult Increase physical activity Relat ed to Encounter for general adult medical exam w abnormal findings Weight management Related to Enc ounter for general adult medical exam w abnormal findings Assessments Type Assessment Date assessment Coronary artery dise ase of [place] coronary artery without angina pectoris assessment Essential (primary) hypertension assessment Hyperlipidemia assessment Type 2 diabetes mellitus without complications Mental Status Date Cognitive Assessment Orientation - [place] ed to time, place, person, situation.
--- OUTSIDE RECORDS SUMMARY | 2025-05-04 23:36 | XMS_ITS | Clinical Summary ---
Author Organization [facility] Address [address] [place] [address] Care Team Providers Care Supervisor Farm Equipment Maintenance Name Role Phone Og Truong MD Primary Care Provider [phone] Source Comments [facility],non-owned Affiliates and Associated Physician Practices is amultiple site organization consisting of ambulatory clinics and hospital sitesin [place], [place], [place] and [place]. This disclosure is being madepursuant to the Care Everywhere program and may not contain all information available regarding this patient. Last updated 18.[employer] [facility] Allergies No known active allergies Active Problems [...] on file Legal Sex Female 6:27 PM CLINICAL DOCUMENT IMPROVEMENT EDUCATOR Gender Identity Not on file Sexual Orientation [...] PM CDT) Cholesterol Total 257(H) <200 mg/dL [facility] HDL 49 >40 mg/dL [facility] Comment: ATP III Classification of HDL Cholesterol: <40 mg/dL: Considered a major risk factor. >60 mg/dL: Considered a negative risk factor. LDL Calculated 169(H) <100 mg/dL [facility] Comment: ATP III Classification of LDL Cholesterol: <100 mg/dL: Optimal 100 - 129 mg/dL: Near Optimal/Above Optimal 130 - 159 mg/dL: Borderline High 160 - 189 mg/dL: High >190 mg/dL: Very High Triglycerides 197(H) <150 mg/dL [facility] Comment: ATP III Classification of Triglycerides: <150 mg/dL: Normal 150 - 199 mg/dL: Borderline High 200 - 400 mg/dL: High >500 mg/dL: Very High Blood specimen (specimen) BLOOD SPECIMEN / Unknown 01/19/2014 4:39 PM CDT 01/19/2014 4:43 PM CDT [facility] - CHEMISTRY ORDERABLES Fin al Result [address] [phone] from Last 3 Months or Most Recently Relevant to Health Maintenance Insurance MEDICARE * Guarantor: DIANA SINGH Account Type Relation to Patient Date of Phone Billing Address Personal/Family [address] [place] [address] [employer] SELF PAY NO INSURANCE Member Subscriber Plan / Payer (Ef fective for All Dates) Name:Diana Singh Member ID:Not on file Relation to Subscriber:Not on file Name:AJITDIANA Subscriber ID:Not on file (Home) Address: [address] [place] [address] Payer ID:Not on file Group ID:Not on file Type:Self Pay Address: [place], [place] * Guarantor: AJITDUNCANDIANA Account Type Relation to Patient Date of Phone Billing Address Personal/Family [address] [place] [address] [employer] SELF PAY NO INSURANCE Member Subscriber Plan / Payer (Ef fective for All Dates) Name:Diana Singh Member ID:Not on file Relation to Subscriber:Not on file Name:AJITDIANA Subscriber ID:Not on file (Home) Address: [address] [place] [address] Payer ID:Not on file Group ID:Not on file Type:Self Pay Address: [place], [place] * Guarantor: DIANA SINGH Account Type Relation to Patient Date of Phone Billing Address Personal/Family [address] [place] [address] [employer] [facility] Care Address: [address] [address] SELF PAY NO INSURANCE Member Subscriber Plan / Payer (Ef fective for All Dates) Name:Diana Singh Member ID:Not on file Relation to Subscriber:Not on file Name:DIANA SINGH Subscriber ID:Not on file (Home) Address: [address] [place] [address] Payer ID:Not on file Group ID:Not on file Type:Self Pay Address: [place], [place] Care Teams Supervisor Farm Equipment Maintenance Relationship Specialty Start Date End Date Og Truong MD [address] [place] [address] PCP - General 01/19/14
--- OUTSIDE RECORDS SUMMARY | 2025-05-04 23:36 | XMS_ITS | Referral Summary ---
Author Organization [facility] [place] [address] [facility] [address] Address [address] [place] [address] Care Team Providers Care Venture Capital Analyst Name Role Phone Gisela William MD Primary Care Provider + Encounters Date Type Department Care Team Description 02/16/2025 10:15 AM CDT Ancillary Procedure [facility] Cardiology [address] [address] Cardiac pacemaker in situ [Z95.0] [...] on file Legal Sex Female 4:02 AM SUPERVISOR PLASTERING Gender Identity Not on file Sexual Orientation Not on file Last Filed Vital Signs Vital Sign Reading Time Taken Comments Blood Pressure 96/60 10/20/2024 12:59 PM SUPERVISOR PLASTERING Pulse 81 10/20/2024 12:59 PM SUPERVISOR PLASTERING Temperature - - Respiratory Rate - - Oxygen Saturation 97% 10/20/2024 12: 59 PM SUPERVISOR PLASTERING Inhaled Oxygen Concentration - - Weight 70.2 kg (154 lb 12.8 oz) 025 12:59 PM SUPERVISOR PLASTERING Height 157.5 cm (5' 2) 10/20/2024 12:5 9 PM SUPERVISOR PLASTERING Body Mass Index 28.31 10/20/2024 12:59 PM SUPERVISOR PLASTERING Plan of Treatment Not on file Procedures [...] impedances, pacing and sensing thresholds. Presenting rhythm: -CARDIAC NURSE PRACTITIONER. AP-1%, CARDIAC NURSE PRACTITIONER-100%. No AT/AF episodes noted. No Ventricular high rate episodes detected. Medications: Lopressor. See scanned report. Office pacemaker follow up: 08/11/2025. [employer] remote f/u 05/25/2025.. Alesia Smith, RN Smith Castelan MD [facility] CARDIAC SERVICES PROC EDURES Final Result from Last 3 Months Insurance [employer] MEDICARE HMO Care Teams Venture Capital Analyst Relationship Specialty Start Date End Date Gisela William MD [address] [address] PCP - General Family Medicine 04/06/24
[2025-05-04 23:39] LABS: Alanine Aminotransferase 99 U/L (6-35); Albumin Level 4.1 g/dL (3.5-5.1); Alkaline Phosphatase 243 U/L (38-126); Anion Gap 13 mmol/L (4-12); Aspartate Amino Transferase 108 U/L (14-36); Bilirubin,Total 0.5 mg/dL (0.2-1.3); Blood Urea Nitrogen 28 mg/dL (7-17); Calcium 8.9 mg/dL (8.4-10.2); Carbon Dioxide 17 mmol/L (22-30); Chloride 101 mmol/L (98-107); Estimated CRCL calculation 38 ml/min; Estimated Glomerular Filt Rate 46; Glucose 301 mg/dL (65-110); Lipase 258 U/L (23-300); Potassium 4.5 mmol/L (3.4-5.0); Sodium 131 mmol/L (137-145); Total Protein 8.1 g/dL (6.3-8.2)
[2025-05-04 23:45] LABS: Troponin I 0.013 ng/mL (0.000-0.034)
[2025-05-05] VITALS (27 sets, daily range): BP systolic 106–132; BP diastolic 45–68; PULSE 60–82; RESP 14–23; TEMP 36.7–36.9; O2SAT 90–100; BMI 28.0
--- NOTE | 2025-05-05 00:12 | PC.NURSE ---
pt ambulatory with steady gait to use restroom.
--- NOTE | 2025-05-05 01:57 | ECG_ITS ---
Test Date: 2025-05-05 02:03:45 Measurements Intervals [place] Rate: 73 P: 63 DE: 208 QRS: -69 QRSD: 167 T: 92 QT: 456 QTc: 506 Interpretive Statements SINUS RHYTHM WITH ATRIAL SENSING AND VENTRICULAR PACING ELECTRONIC VENTRICULAR PACEMAKER ABNORMAL RHYTHM ECG Compared to ECG 05/04/2025 22:46:41 NO DIFFERENCE Electronically Signed On 05-05-2025 08:17:19 CDT by Smith Castelan M.D.
--- NOTE | 2025-05-05 02:17 | ED.GENADULT ---
HPI - General Adult General Chief complaint: Chest Pain Stated complaint: chest pain Time Seen by Provider: 05/04/25 23:00 History of Present Illness HPI narrative: This is a 61-year-old female presenting ED with chief complaint of chest pain. Patient says the pain started at 9:30 p.m. while she was watching TV. Is an achy pain on the left side of her chest just below her pacemaker. It is nonradiating 8/10 intensity and constant. She has never had pain like this before. It is worse with palpation. Is not associated with vomiting diaphoresis or exertion. She has not had any recent illness fevers chills productive cough or shortness of breath. Related Data Home Medications ?Medication ?Instructions ?Recorded ?Confirmed ?Last Taken ?Type metformin 500 mg tablet 1,000 mg PO BID 04/28/20 04/16/24 04/15/24 History metoprolol tartrate 50 mg tablet 50 mg PO Q12H 04/28/20 04/16/24 04/15/24 History amlodipine 10 mg tablet (Norvasc) 10 mg PO DAILY 05/20/20 04/16/24 04/15/24 History empagliflozin 25 mg tablet 25 mg PO DAILY 03/13/24 04/16/24 04/15/24 History (Jardiance) glimepiride 4 mg tablet 8 mg PO QAM 03/13/24 04/16/24 04/15/24 History losartan 100 mg tablet 100 mg PO DAILY 03/13/24 04/16/24 04/15/24 History Allergies Allergy/AdvReac Type Severity Reaction Status Date / Time No Known Allergies Allergy Verified 05/04/25 22:39 [facility] Past Medical History Medical History Colon cancer screening Glaucoma CVA (cerebral vascular accident) no residual deficits (2011) Diabetes Dyslipidemia Hypertension Surgical History Surgical History History of bilateral cataract extraction History of tonsillectomy Social History Social History Smoking packs per day: 1 Smoking cigarettes per day: 20.0 Years smoked: 40 Smoking pack-years: 40.00 Smoking status: Former smoker Tobacco type: cigarettes Additional smoking assessment comments: quit 10 years ago Alcohol intake: current Substance use: never Substance use type: does not use Do You Feel Safe in your Home?: Yes Lack of Transportation: No Lack of Food: Never True Current Housing: Decline to Answer Concerned About Future Housing: No Difficulty Paying Gas/Electric Bills: No Difficulty Paying for Meds: No Currently Unemployed: No Education: Decline to Answer Difficulty w/ Childcare or Family Care: No Living arrangements: with family Spiritual care concerns: No Exam Narrative: APPEARANCE: No apparent distress. Head: atraumatic. EYES: EOMI, NOSE: Atraumatic NECK: Trachea midline RESPIRATORY: No increased rate of breathing clear to auscultation CARDIOVASCULAR: RRR, no peripheral edema, ABDOMINAL: Non-distended MUSCULOSKELETAl: No obvious deformities NEURO: Alert. Moving 4/4 extremities SKIN:: Warm, dry. Normal color PSYCHIATRIC: Normal affect Course Vital Signs Vital signs: Vital Signs Temperature 98.0 F 05/04/25 22:50 Pulse Rate 85 05/04/25 22:50 Respiratory Rate 26 H 05/04/25 22:50 Blood Pressure 116/52 L 05/04/25 22:50 Pulse Oximetry 98 05/04/25 22:50 Temperature 98.0 F 05/04/25 22:50 Pulse Rate 85 05/04/25 22:50 Respiratory Rate 26 H 05/04/25 22:50 Blood Pressure 116/52 L 05/04/25 22:50 Pulse Oximetry 98 05/04/25 22:50 Oxygen Delivery Room Air 05/04/25 23:01 Medical Decision Making [facility] Narrative Medical decision making narrative: -Course: 69-year-old female presenting with left-sided chest pain. On exam there is reproducible pain over the pacemaker. No overlying cellulitic changes or fluctuant masses. Despite the reproducible chest wall pain, troponin uptrending .013 -> .178. EKG shows paced rhythm. Pacemaker was interrogated and is working appropriately. CT PE did not show pulmonary embolism or acute cardiopulmonary process per stat rad. official read will occur in the am. Patient will be started on heparin for NSTEMI. Blood pressure too low for nitro drip. Patient given oxygen and morphine. Patient placed in the IMU. -DDX includes but is not limited to: ACS, dysrhythmia, pneumonia, PE, toddler syndrome, pacemaker failure -Co-morbidities complicating care: Diabetes Independent EKG interpretation: Rhythm [paste], Rate [85], [place] -[normal], FL -[to 19], QRS [wide], QTC [for 96], T waves -[negative for concerning inversions], ST Segments - [Negative for concerning elevations] Final interpretations: Paced rhythm Vital Signs Vital Signs: Vital Signs Temperature 98.0 F 05/04/25 22:50 Pulse Rate 85 05/04/25 22:50 Respiratory Rate 26 H 05/04/25 22:50 Blood Pressure 116/52 L 05/04/25 22:50 Pulse Oximetry 98 05/04/25 22:50 Temperature 98.0 F 05/04/25 22:50 Pulse Rate 85 05/04/25 22:50 Respiratory Rate 26 H 05/04/25 22:50 Blood Pressure 116/52 L 05/04/25 22:50 Pulse Oximetry 98 05/04/25 22:50 Oxygen Delivery Room Air 05/04/25 23:01 Lab Data 05/04/25 22:58 05/04/25 22:58 Labs: Lab Results 05/04/25 05/04/25 05/05/25 Range/Units 22:57 22:58 02:01 WBC 12.4 H (4.5-10.0) K/mm3 RBC 4.32 (4.2-5.4) M/mm3 Hgb 13.3 (12.0-15.0) g/dL Hct 40.2 (37.0-47.0) % MCV 93.1 (80-100) fl MCH 30.8 (26-34) pg MCHC 33.1 (32-36) g/dl RDW 13.6 (11.5-14.5) % Plt Count 334 (150-375) k/mm3 MPV 9.9 (7.4-10.4) fl Immature Gran % (Auto) 0.6 H (0-0.5) % Neut % (Auto) 56.7 (45.5-73.1) % Lymph % (Auto) 25.1 (18.3-44.2) % [place] % (Auto) 10.6 H (2.6-8.5) % Eos % (Auto) 6.2 H (0-4.4) % Baso % (Auto) 0.8 (0.2-1.2) % Lymph # (Auto) 3.11 (0.9-3.2) K/mm3 [place] # (Auto) 1.3 H (0.1-0.6) K/mm3 Eos # (Auto) 0.8 H (0-0.3) K/mm3 Baso # (Auto) 0.1 (0.0-0.1) K/mm3 Abs Immat Gran (auto) 0.08 H (0.00-0.031) K/mm3 Absolute Neuts (auto) 7.0 H (1.3-6.7) K/mm3 Absolute Nucleated RBC 0.000 (0.0-0.012) K/mm3 Nucleated RBC % 0.0 (0.0-0.2) % PT 14.3 (11.1-14.7) Seconds INR 1.1 APTT 29.3 (22.3-36.8) Seconds Sodium 131 L (137-145) mmol/L Potassium 4.5 (3.4-5.0) mmol/L Chloride 101 (98-107) mmol/L Carbon Dioxide 17 L (22-30) mmol/L Anion Gap 13 H (4-12) mmol/L BUN 28 H D (7-17) mg/dL Creatinine 1.16 H (0.7-1.0) mg/dL Estim Creat Clear Calc 38 ml/min Estimated GFR 46 L (59 - ) Glucose 301 H (65-110) mg/dL POC Capillary Glucose 305 H (65-105) mg/dl Calcium 8.9 (8.4-10.2) mg/dL Total Bilirubin 0.5 (0.2-1.3) mg/dL AST 108 H (14-36) U/L ALT 99 H (6-35) U/L Alkaline Phosphatase 243 H (38-126) U/L Troponin I 0.013 0.178 H* D (0.000-0.034) ng/mL Total Protein 8.1 (6.3-8.2) g/dL Albumin 4.1 (3.5-5.1) g/dL Lipase 258 (23-300) U/L Critical Care Time Critical Care Time Critical Care Time: Yes Total Critical Care Time: 45 Discharge Plan Discharge Clinical Impression: Non-ST elevation MD (NSTEMI) Patient Disposition: Still a Patient Condition: Stable Instructions: Breast Self Exam for Women (ED) Additional Instructions: You were seen in the emergency department for chest pain. The pain appears to be coming from her left breast. Please follow-up with your primary care physician for further evaluation in 1 week. If you develop worsening chest pain or fevers shortness of breath or any new or worsening symptoms please return to the ED for re-evaluation. Patient Language: Grenadian Prescriptions: No Action amlodipine [Norvasc] 10 mg tablet 10 mg PO DAILY metformin 500 mg tablet 1,000 mg PO BID metoprolol tartrate 50 mg tablet 50 mg PO Q12H glimepiride 4 mg Tablet 8 mg PO QAM Rx Instructions: administer with breakfast Jardiance 25 mg tablet 25 mg PO DAILY losartan 100 mg tablet 100 mg PO DAILY tamsulosin 0.4 mg Capsule 0.4 mg PO QAM Qty: 30 0RF hydrocodone-acetaminophen 5-325 mg Tablet 1 tablet PO Q6H PRN (Reason: severe pain) Qty: 20 0RF Follow-up/Referrals: Alvin,MD Ignacio [Primary Care Provider] -
[2025-05-05] MEDS: ACETAMINOPHEN 500 MG TABLET 1000 MG PO (02:25)
[2025-05-05 02:48] LABS: Troponin I 0.178 ng/mL (0.000-0.034)
--- NOTE | 2025-05-05 03:02 | PC.NURSE ---
Pt states chest pain improved a little when asked to rate pain 7/10.
[2025-05-05] MEDS: MORPHINE SULFATE (*CRX) 4 MG/ML INJ IV PUSH (03:33)
--- NOTE | 2025-05-05 03:39 | PC.NURSE ---
Pt taken to CT on stretcher by tech
--- NOTE | 2025-05-05 03:55 | PC.NURSE ---
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
[2025-05-05] MEDS: HEPARIN SOD/D5W 100 UNITS/ML 25,000 UNITS/250 ML BAG 7 UNITS IV CONT (04:34)
--- NOTE | 2025-05-05 05:22 | ECG_ITS ---
Test Date: 2025-05-05 05:34:47 Measurements Intervals [place] Rate: 76 P: 37 CA: 220 QRS: -70 QRSD: 172 T: 90 QT: 473 QTc: 533 Interpretive Statements SINUS RHYTHM WITH ATRIAL SENSING AND VENTRICULAR PACING ELECTRONIC VENTRICULAR PACEMAKER ABNORMAL RHYTHM ECG Compared to ECG 05/05/2025 02:03:45 Sinus rhythm no longer present Electronically Signed On 05-05-2025 08:18:13 CDT by Smith Castelan M.D.
[2025-05-05 05:24] LABS: Hematocrit 41.2 % (37.0-47.0); Hemoglobin 13.7 g/dL (12.0-15.0); Immature Granulocyte Percent A 0.8 % (0-0.5); Lymphocytes Absolute Auto 4.42 K/mm3 (0.9-3.2); Mean Corpuscular HGB Conc 33.3 g/dl (32-36); Mean Corpuscular Hemoglobin 30.9 pg (26-34); Mean Corpuscular Volume 93.0 fl (80-100); Nucleated Red Blood Cells Absolute Auto 0.000 K/mm3 (0.0-0.012); Nucleated Red Blood Cells Perc 0.0 % (0.0-0.2); Platelet Count Result 320 k/mm3 (150-375); Red Blood Count 4.43 M/mm3 (4.2-5.4); White Blood Count 14.8 K/mm3 (4.5-10.0)
[2025-05-05 05:37] LABS: INR 1.3; Prothrombin Time 16.5 Seconds (11.1-14.7)
[2025-05-05 05:56] LABS: Partial Thromboplastin Time > 200.0 Seconds (22.3-36.8)
--- NOTE | 2025-05-05 06:17 | ADMGEN ---
This patient, Diana Singh, was admitted to IMU Room 200-01. Patient/family oriented to hospital policies and general routines including ID bracelet, bed and alarms, visiting hours, pain management, procedures, bathroom and other care routines, personal items, smoking policy, room service/diet, and visiting hours. Information on how to activate the Rapid Response Team has been discussed. Patient/Family are encouraged to report perceived risks to care and to ask questions if they do not understand what they are told or what they should do.
[2025-05-05 06:19] LABS: Troponin I 0.586 ng/mL (0.000-0.034)
--- NOTE | 2025-05-05 07:35 | PM.CNCAR ---
Assessment and Plan Assessment and plan (1) Non-ST elevation TN (NSTEMI): Code(s): I21.4 - Non-ST elevation (NSTEMI) myocardial infarction Status: Acute Plan NSTEMI High-grade block status post permanent pacemaker Hypertension-controlled Plan: Patient continues to have pain of intensity 5/10 in her left chest. Troponin is up trending. Recommend cardiac catheterization for further evaluation. Risks and benefits were discussed with patient and she is willing to proceed She was given aspirin 325 mg p.o. once in the ER. Continue 81 mg p.o. daily Continue heparin drip Add atorvastatin 40 mg daily Sublingual nitro p.r.n. for any chest pain Continue empagliflozin which is her home medication Hold losartan (home medication) for catheterization today Hold amlodipine (home medication) given soft blood pressure with SBP in the 100s Check FLP TTE today Trend troponin to peak EKG p.r.n. for any chest pain Check and replace electrolytes as needed to keep potassium greater than 4 and 2 History of Present Illness History of Present Illness Consult date/time: 05/05/25 07:35 Reason For Visit: NStemi Narrative: 69-year-old female with history of CVA, hypertension, dyslipidemia, diabetes, glaucoma who presents with chief complaints of chest pain. Pain started last night while she was watching TV around 9:30 p.m.. She describes it as an ache on the left side of her chest just below her pacemaker. Pain is nonradiating. Pain was of intensity 8/10 and constant when it started. She states that she has not had this kind of pain before. She came to [facility] ER after about an hour of having chest pain. She states that the pain has decreased in intensity after being administered meds in the ER but continues to have pain of intensity 5/10 at this time. No associated diaphoresis or shortness of breath. No change in pain with deep breath or change in position. No dizziness, lightheadedness, presyncope, syncope, leg swelling, recent weight gain, orthopnea, PND, palpitations. Troponin is elevated and rising. Cardiology is consulted for further recommendations for NSTEMI. Workup: Creatinine: 1.16 (baseline less than 1) Troponin: 0.013, 0.178, 0.586, 1.080 Chest x-ray: No acute cardiopulmonary pathology CTA chest: No acute cardiopulmonary disease. No evidence for pulmonary embolism. EKG: Electronic ventricular pacemaker TTE: Ordered Review of Systems Review of Systems: A complete review of systems was performed and negative other than those mentioned HPI [facility] Past Medical History Medical History Colon cancer screening Glaucoma CVA (cerebral vascular accident) no residual deficits (2011) Diabetes Dyslipidemia Hypertension Surgical History Surgical History History of bilateral cataract extraction History of tonsillectomy Social History Social History Smoking packs per day: 1 Smoking cigarettes per day: 20.0 Years smoked: 40 Smoking pack-years: 40.00 Smoking status: Former smoker Tobacco type: cigarettes Second hand tobacco smoke exposure: No Additional smoking assessment comments: quit 10 years ago Alcohol intake: never Substance use: never Substance use type: does not use Do You Feel Safe in your Home?: Yes Lack of Transportation: No Lack of Food: Never True Current Housing: I Have Housing Concerned About Future Housing: No Difficulty Paying Gas/Electric Bills: No Difficulty Paying for Meds: No Currently Unemployed: No Education: High School Diploma/GED Difficulty w/ Childcare or Family Care: No Living arrangements: with family Spiritual care concerns: No Meds Home Medications and Allergies Home Medications ?Medication ?Instructions ?Recorded ?Confirmed ?Type metformin 500 mg tablet 1,000 mg PO BID 04/28/20 05/05/25 History metoprolol tartrate 50 mg tablet 50 mg PO Q12H 04/28/20 05/05/25 History amlodipine 10 mg tablet (Norvasc) 10 mg PO DAILY 05/20/20 05/05/25 History empagliflozin 25 mg tablet 25 mg PO DAILY 03/13/24 05/05/25 History (Jardiance) glimepiride 4 mg tablet 8 mg PO QAM 03/13/24 05/05/25 History losartan 100 mg tablet 100 mg PO DAILY 03/13/24 05/05/25 History hydrocodone 5 mg-acetaminophen 325 1 tablet PO Q6H PRN severe pain 03/15/24 05/05/25 Rx mg tablet #20 tabs tamsulosin 0.4 mg capsule 0.4 mg PO QAM #30 caps 03/15/24 05/05/25 Rx Allergies Allergy/AdvReac Type Severity Reaction Status Date / Time No Known Allergies Allergy Verified 05/04/25 22:39 Vital Signs Vital Signs - 24 hr 05/04/25 22:48 05/04/25 22:50 05/04/25 23:01 Temperature 36.7 C Pulse Rate 84 85 Respiratory Rate 12 26 H Blood Pressure 116/52 L 116/52 L Pulse Oximetry 99 98 Oxygen Delivery Room Air Oxygen Flow Rate 05/04/25 23:01 05/04/25 23:31 05/05/25 00:31 Temperature Pulse Rate 84 93 82 Respiratory Rate 29 H 21 H Blood Pressure 125/66 120/66 119/68 Pulse Oximetry 98 97 97 Oxygen Delivery Oxygen Flow Rate 05/05/25 01:31 05/05/25 05:01 05/05/25 05:04 Temperature Pulse Rate 73 71 Respiratory Rate 18 23 H Blood Pressure 122/58 L 117/57 L Pulse Oximetry 99 100 99 Oxygen Delivery Nasal Cannula Oxygen Flow Rate 2 05/05/25 06:15 Temperature 36.9 C Pulse Rate 75 Respiratory Rate 17 Blood Pressure 118/63 Pulse Oximetry 98 Oxygen Delivery Oxygen Flow Rate Exam Narrative: General: Alert oriented x3, no acute distress Neck: Supple, no JVD Chest: Bilaterally clear to auscultation, no rales or rhonchi Cardiac: S1, S2 +, regular rate, regular rhythm, no murmurs or rubs Extremities: No pedal edema, no skin rash Neurologic: Alert and oriented x3, no focal neurological deficits Results Labs and Meds 05/05/25 05:19 05/04/25 22:58 Lab results: Cardiac Enzymes 05/04/25 05/05/25 05/05/25 Range/Units 22:58 02:01 05:19 AST 108 H (14-36) U/L Troponin I 0.013 0.178 H* D 0.586 H* D (0.000-0.034) ng/mL Coagulation 05/04/25 05/05/25 Range/Units 22:58 05:19 PT 14.3 16.5 H (11.1-14.7) Seconds APTT 29.3 > 200.0 H* (22.3-36.8) Seconds CBC 05/04/25 05/05/25 Range/Units 22:58 05:19 WBC 12.4 H 14.8 H (4.5-10.0) K/mm3 RBC 4.32 4.43 (4.2-5.4) M/mm3 Hgb 13.3 13.7 (12.0-15.0) g/dL Hct 40.2 41.2 (37.0-47.0) % Plt Count 334 320 (150-375) k/mm3 Lymph # (Auto) 3.11 4.42 H (0.9-3.2) K/mm3 [place] # (Auto) 1.3 H 1.4 H (0.1-0.6) K/mm3 Eos # (Auto) 0.8 H 1.1 H (0-0.3) K/mm3 Baso # (Auto) 0.1 0.1 (0.0-0.1) K/mm3 Comprehensive Metabolic Panel 05/04/25 Range/Units 22:58 Sodium 131 L (137-145) mmol/L Potassium 4.5 (3.4-5.0) mmol/L Chloride 101 (98-107) mmol/L Carbon Dioxide 17 L (22-30) mmol/L BUN 28 H D (7-17) mg/dL Creatinine 1.16 H (0.7-1.0) mg/dL Glucose 301 H (65-110) mg/dL Calcium 8.9 (8.4-10.2) mg/dL AST 108 H (14-36) U/L ALT 99 H (6-35) U/L Alkaline Phosphatase 243 H (38-126) U/L Total Protein 8.1 (6.3-8.2) g/dL Albumin 4.1 (3.5-5.1) g/dL
--- NOTE | 2025-05-05 08:15 | P.HP_ITS ---
H&P: HPI History of Present Illness Date/Time: 05/05/25 08:15 Chief Complaint: Chest pain Narrative: CT years old lady with history of hypertension, diabetes, status post pacemaker, present ED with chief complaint of chest pain patient started have chest pain yesterday evening about 9:30 p.m. when patient was watching TV. Is locating in left chest, without radiation. Patient had palpitation. Patient denies headache, lightheadedness, focal weakness, nausea vomiting diarrhea, dysuria, fever or chills. Patient came to ED for evaluation treatment Upon arrival in the ED, patient was afebrile, blood pressure stable, no O2 desaturation on room air, Lab showed leukocytosis 12,400 Sodium 131, elevated BUN creatinine ratio 28/1.16 Uncontrolled diabetes glucose 301 CTA chest shows no PE no acute cardiopulmonary issues First troponin negative, 2nd troponin bumped up to 0.178 EKG showed sinus rhythm, no ST elevation PMFSH Past Medical History Medical History Colon cancer screening Glaucoma CVA (cerebral vascular accident) no residual deficits (2011) Diabetes Dyslipidemia Hypertension Surgical History Surgical History History of bilateral cataract extraction History of tonsillectomy Social History Social History Smoking packs per day: 1 Smoking cigarettes per day: 20.0 Years smoked: 40 Smoking pack-years: 40.00 Smoking status: Former smoker Tobacco type: cigarettes Second hand tobacco smoke exposure: No Additional smoking assessment comments: quit 10 years ago Alcohol intake: never Substance use: never Substance use type: does not use Do You Feel Safe in your Home?: Yes Lack of Transportation: No Lack of Food: Never True Current Housing: I Have Housing Concerned About Future Housing: No Difficulty Paying Gas/Electric Bills: No Difficulty Paying for Meds: No Currently Unemployed: No Education: High School Diploma/GED Difficulty w/ Childcare or Family Care: No Living arrangements: with family Spiritual care concerns: No Meds Home Medications and Allergies Home Medications ?Medication ?Instructions ?Recorded ?Confirmed ?Type metformin 500 mg tablet 1,000 mg PO BID 04/28/20 05/05/25 History metoprolol tartrate 50 mg tablet 50 mg PO Q12H 04/28/20 05/05/25 History amlodipine 10 mg tablet (Norvasc) 10 mg PO DAILY 05/20/20 05/05/25 History empagliflozin 25 mg tablet 25 mg PO DAILY 03/13/24 05/05/25 History (Jardiance) glimepiride 4 mg tablet 8 mg PO QAM 03/13/24 05/05/25 History losartan 100 mg tablet 100 mg PO DAILY 03/13/24 05/05/25 History hydrocodone 5 mg-acetaminophen 325 1 tablet PO Q6H PRN severe pain 03/15/24 05/05/25 Rx mg tablet #20 tabs tamsulosin 0.4 mg capsule 0.4 mg PO QAM #30 caps 03/15/24 05/05/25 Rx Allergies Allergy/AdvReac Type Severity Reaction Status Date / Time No Known Allergies Allergy Verified 05/04/25 22:39 Vital Signs Vital Signs - 24 hr 05/04/25 22:48 05/04/25 22:50 05/04/25 23:01 Temperature 98.0 F Pulse Rate 84 85 Respiratory Rate 12 26 H Blood Pressure 116/52 L 116/52 L Pulse Oximetry 99 98 Oxygen Delivery Room Air Oxygen Flow Rate 05/04/25 23:01 05/04/25 23:31 05/05/25 00:31 Temperature Pulse Rate 84 93 82 Respiratory Rate 29 H 21 H Blood Pressure 125/66 120/66 119/68 Pulse Oximetry 98 97 97 Oxygen Delivery Oxygen Flow Rate 05/05/25 01:31 05/05/25 05:01 05/05/25 05:04 Temperature Pulse Rate 73 71 Respiratory Rate 18 23 H Blood Pressure 122/58 L 117/57 L Pulse Oximetry 99 100 99 Oxygen Delivery Nasal Cannula Oxygen Flow Rate 2 05/05/25 06:15 05/05/25 07:41 Temperature 98.5 F 98.2 F Pulse Rate 75 75 Respiratory Rate 17 20 Blood Pressure 118/63 109/63 Pulse Oximetry 98 96 Oxygen Delivery Oxygen Flow Rate Exam Narrative: GENERAL: Pleasant, in no acute distress. Well-nourished. - EYES: EOMI. Anicteric. - HENT: Moist mucous membranes. - LUNGS: Clear to auscultation bilateral ly, no wheezing, rhonchi, or rales. - CARDIOVASCULAR: Regular rate and rhyth m. No murmur. No JVD. - ABDOMEN: Soft, non-tender and non-dist ended. No palpable masses. - EXTREMITIES: No edema. Peripheral puls es 2+. Non-tender. - NEUROLOGIC: No focal neurological defi cits. CN II-XII grossly intact. - PSYCHIATRIC: Awake, Alert and oriented x 3. Appropriate mood and affect. - SKIN: No rashes or lesions. Warm. - LYMPH: No cervical lymphadenopathy. H&P: Results Labs Labs: Short CBC 05/04/25 05/05/25 Range/Units 22:58 05:19 WBC 12.4 H 14.8 H (4.5-10.0) K/mm3 Hgb 13.3 13.7 (12.0-15.0) g/dL Hct 40.2 41.2 (37.0-47.0) % Plt Count 334 320 (150-375) k/mm3 BMP 05/04/25 22:58 Sodium 131 L Potassium 4.5 Chloride 101 Carbon Dioxide 17 L BUN 28 H D Creatinine 1.16 H Glucose 301 H Calcium 8.9 Cardiac Enzymes 05/04/25 05/05/25 05/05/25 Range/Units 22:58 02:01 05:19 Troponin I 0.013 0.178 H* D 0.586 H* D (0.000-0.034) ng/mL Liver Function 05/04/25 Range/Units 22:58 Total Bilirubin 0.5 (0.2-1.3) mg/dL AST 108 H (14-36) U/L ALT 99 H (6-35) U/L Alkaline Phosphatase 243 H (38-126) U/L Albumin 4.1 (3.5-5.1) g/dL Assessment and Plan Assessment and plan (1) Non-ST elevation [place] (NSTEMI): Code(s): I21.4 - Non-ST elevation (NSTEMI) myocardial infarction Status: Acute (2) Pacemaker: Code(s): Z95.0 - Presence of cardiac pacemaker Status: Acute (3) Uncontrolled hypertension: Code(s): I10 - Essential (primary) hypertension Status: Acute (4) Leukocytosis: Code(s): D72.829 - Elevated white blood cell count, unspecified Status: Acute Plan NSTEMI Patient started have chest pain yesterday Elevated troponin that trending up EKG shows sinus rhythm no ST elevation Received aspirin 325 mg once continue aspirin 81 mg daily p.o. Continue heparin drip, titrate per NSTEMI protocol Continue Lipitor 40 mg daily p.o. Pending echocardiogram Telemetry monitoring Optimize pain management Appreciate cardiology's input, plans cardiac catheterization Leukocytosis Patient is afebrile, chest x-ray and CT shows no acute cardiopulmonary issues Pending urinalysis Uncontrolled type 2 diabetes Hold metformin, glimepiride p.o. Start Lantus 15 unit and insulin sliding scale a.c. q.h.s. Continue Jardiance 25 mg daily p.o. Essential hypertension Blood pressure on the lower side Hold amlodipine 10 mg daily p.o. Decrease losartan from 100 mg to 50 mg daily p.o. Acute hyponatremia Dehydration Acute renal failure Sodium 131, creatinine 1.16, baseline creatinine 0.8 Possible due to dehydration Start normal saline IV 100 mL/hour Hospitalist MIPS Advance Care Plan I have confirmed that the patient's Advanced Care Plan is present, code status is documented, or surrogate decision maker is listed in patient medical record.: Yes Medication Reconciliation I have utilized all available resources to obtain, update and review the patients current medications (includes all prescriptions, OTC, herbals, cannabis, and nutritional supplements).: Yes
[2025-05-05] MEDS: SODIUM CHLORIDE 0.9% IV 1,000 ML 125 ML IV CONT ×2 (09:12→20:20)
[2025-05-05] MEDS: METOPROLOL TARTRATE 50 MG TAB PO ×2 (09:18→21:13)
[2025-05-05] MEDS: EMPAGLIFLOZIN 25 MG TABLET PO (09:18)
[2025-05-05] MEDS: ATORVASTATIN 40 MG TABLET PO (09:18)
[2025-05-05] MEDS: ASPIRIN 81 MG ENTERIC TABLET PO (09:18)
[2025-05-05] MEDS: LOSARTAN POTASSIUM 50 MG TABLET PO (09:19)
[2025-05-05 09:55] LABS: Add Urine Microscopic? NO; Appearance Urine Clear (Clear); Glucose Urine UA 3+ mg/dL (Negative); Leukocyte Esterase Ur Negative LEU/UL (Negative); Nitrate Urine Negative (Negative); Specific Grav Ur 1.041 (1.001-1.035)
[2025-05-05 11:07] LABS: Troponin I 1.080 ng/mL (0.000-0.034)
[2025-05-05 11:14] LABS: Partial Thromboplastin Time 98.4 Seconds (22.3-36.8)
--- NOTE | 2025-05-05 11:38 | WPDMODSED ---
Moderate Sedation Note-Pt Data Patient Data Allergies Allergy/AdvReac Type Severity Reaction Status Date / Time No Known Allergies Allergy Verified 05/04/25 22:39 Home Medications ?Medication ?Instructions ?Recorded ?Confirmed ?Type metformin 500 mg tablet 1,000 mg PO BID 04/28/20 05/05/25 History metoprolol tartrate 50 mg tablet 50 mg PO Q12H 04/28/20 05/05/25 History amlodipine 10 mg tablet (Norvasc) 10 mg PO DAILY 05/20/20 05/05/25 History empagliflozin 25 mg tablet 25 mg PO DAILY 03/13/24 05/05/25 History (Jardiance) glimepiride 4 mg tablet 8 mg PO QAM 03/13/24 05/05/25 History losartan 100 mg tablet 100 mg PO DAILY 03/13/24 05/05/25 History hydrocodone 5 mg-acetaminophen 325 1 tablet PO Q6H PRN severe pain 03/15/24 05/05/25 Rx mg tablet #20 tabs tamsulosin 0.4 mg capsule 0.4 mg PO QAM #30 caps 03/15/24 05/05/25 Rx Current Medications: Active Medications Hydrocodone Bitart/Acetaminophen (Hydrocodone/Acetaminophen (*Crx) 5-325 Mg Tablet) 1 tab PO Q6H PRN PRN Reason: severe pain Aspirin (Aspirin 81 Mg Enteric Tablet) 81 mg PO QAM [facility] Last Admin: 05/05/25 09:18 Dose: 81 mg Atorvastatin Calcium (Atorvastatin 40 Mg Tablet) 40 mg PO DAILY [facility] Last Admin: 05/05/25 09:18 Dose: 40 mg Dextrose (Dextrose 50% 25 Gm/50 Ml Syringe) 12.5 gm IV PUSH PRN PRN; Protocol PRN Reason: Hypoglycemia Empagliflozin (Empagliflozin 25 Mg Tablet) 25 mg PO DAILY [facility] Last Admin: 05/05/25 09:18 Dose: 25 mg Glucagon (Glucagon For Inj 1 Mg Vial) 1 mg IM PRN PRN; Protocol PRN Reason: Hypoglycemia Glucose (Glucose Oral Gel 15 Gm Of Glucse In 37.5 Gm Tube) 15 gm PO PRN PRN; Protocol PRN Reason: Hypoglycemia Heparin Sodium (Porcine) (Heparin Sodium 5,000 Units/Ml Vial) 4,000 units IV PUSH PRN PRN PRN Reason: aPTT less than 55 seconds Heparin Sodium (Porcine) (Heparin Sodium 5,000 Units/Ml Vial) 2,500 units IV PUSH PRN PRN PRN Reason: aPTT 55 - 70 seconds Heparin Sodium/Dextrose (Heparin Sodium/D5w 100 Units/Ml) 25,000 units in 250 mls @ 7 mls/hr IV CONT .Q24H FRANCIS; Protocol Last Admin: 05/05/25 04:34 Dose: 700 units/hr, 7 mls/hr Dextrose (Dextrose 5% 1,000 Ml) 1,000 mls @ 100 mls/hr IVPB PRN PRN; Protocol PRN Reason: Hypoglycemia Sodium Chloride (Normal Saline Iv) 1,000 mls @ 125 mls/hr IV CONT .Q8H FRANCIS Last Admin: 05/05/25 09:12 Dose: 125 mls/hr Insulin Aspart (Insulin Aspart (*Bkc) 100 Units/Ml) 4 - 8 units SUB-Q TIDWM FRANCIS; Protocol Insulin Aspart (Insulin Aspart (*Bkc) 100 Units/Ml) 2 - 4 units SUB-Q HS FRANCIS; Protocol Insulin Glargine (Insulin Glargine (*Bkc) 100 Units/Ml) 15 units SUB-Q HS FRANCIS Losartan Potassium (Losartan Potassium 50 Mg Tablet) 50 mg PO DAILY FRANCIS Last Admin: 05/05/25 09:19 Dose: 50 mg Metoprolol Tartrate (Metoprolol Tartrate 50 Mg Tab) 50 mg PO Q12H FRANCIS Last Admin: 05/05/25 09:18 Dose: 50 mg Perflutren Lipid Microsphere (Perflutren Lipid Microspheres 1.5 Ml Vial Diluted To 10 Ml Total Volume) 0 ml IV PUSH ONCE PRN; Protocol PRN Reason: adequate visualization Stop: 05/08/25 07:38 Sedation/Anesthesia: No previous sedation/anesthesia problems (including family history). [facility] Past Medical History Medical History Colon cancer screening Glaucoma CVA (cerebral vascular accident) no residual deficits (2011) Diabetes Dyslipidemia Hypertension Surgical History Surgical History History of bilateral cataract extraction History of tonsillectomy Social History Social History Smoking packs per day: 1 Smoking cigarettes per day: 20.0 Years smoked: 40 Smoking pack-years: 40.00 Smoking status: Former smoker Tobacco type: cigarettes Second hand tobacco smoke exposure: No Additional smoking assessment comments: quit 10 years ago Alcohol intake: never Substance use: never Substance use type: does not use Do You Feel Safe in your Home?: Yes Lack of Transportation: No Lack of Food: Never True Current Housing: I Have Housing Concerned About Future Housing: No Difficulty Paying Gas/Electric Bills: No Difficulty Paying for Meds: No Currently Unemployed: No Education: High School Diploma/GED Difficulty w/ Childcare or Family Care: No Living arrangements: with family Spiritual care concerns: No Mod Sed Physical Exam Physical Exam Pre Procedural Exam: Normal: Lungs, Heart Rate and Heart Rhythm Hours since solid foods: 12 Hours since liquid intake: 12 Mallampati Classification: class III Internal Medicine - PN: Obj Da Vital Signs Vital Signs: Vital Signs - 24 hr 05/04/25 22:48 05/04/25 22:50 05/04/25 23:01 Temperature 36.7 C Pulse Rate 84 85 Respiratory Rate 12 26 H Blood Pressure 116/52 L 116/52 L Pulse Oximetry 99 98 Oxygen Delivery Room Air Oxygen Flow Rate 05/04/25 23:01 05/04/25 23:31 05/05/25 00:31 Temperature Pulse Rate 84 93 82 Respiratory Rate 29 H 21 H Blood Pressure 125/66 120/66 119/68 Pulse Oximetry 98 97 97 Oxygen Delivery Oxygen Flow Rate 05/05/25 01:31 05/05/25 05:01 05/05/25 05:04 Temperature Pulse Rate 73 71 Respiratory Rate 18 23 H Blood Pressure 122/58 L 117/57 L Pulse Oximetry 99 100 99 Oxygen Delivery Nasal Cannula Oxygen Flow Rate 2 05/05/25 06:15 05/05/25 07:41 05/05/25 08:00 Temperature 36.9 C 36.8 C Pulse Rate 75 75 Respiratory Rate 17 20 Blood Pressure 118/63 109/63 Pulse Oximetry 98 96 99 Oxygen Delivery Nasal Cannula Oxygen Flow Rate 2 05/05/25 08:00 05/05/25 09:18 Temperature Pulse Rate 74 74 Respiratory Rate Blood Pressure Pulse Oximetry Oxygen Delivery Oxygen Flow Rate Meds/Results Medications: Active Medications Generic Name Dose Route Start Last Admin Trade Name Freq PRN Reason Stop Dose Admin Hydrocodone Bitart/Acetaminophen 1 tab 05/05/25 08:26 Hydrocodone/Acetaminophen (*Crx) 5-325 Mg Tablet PO Q6H PRN severe pain Aspirin 81 mg 05/05/25 09:00 05/05/25 09:18 Aspirin 81 Mg Enteric Tablet PO 81 mg QAM FRANCIS Administration Atorvastatin Calcium 40 mg 05/05/25 09:00 05/05/25 09:18 Atorvastatin 40 Mg Tablet PO 40 mg DAILY FRANCIS Administration Dextrose 12.5 gm 05/05/25 08:34 Dextrose 50% 25 Gm/50 Ml Syringe IV PUSH PRN PRN Hypoglycemia Protocol Empagliflozin 25 mg 05/05/25 09:00 05/05/25 09:18 Empagliflozin 25 Mg Tablet PO 25 mg DAILY FRANCIS Administration Glucagon 1 mg 05/05/25 08:34 Glucagon For Inj 1 Mg Vial IM PRN PRN Hypoglycemia Protocol Glucose 15 gm 05/05/25 08:34 Glucose Oral Gel 15 Gm Of Glucse In 37.5 Gm Tube PO PRN PRN Hypoglycemia Protocol Heparin Sodium (Porcine) 4,000 units 05/05/25 04:19 Heparin Sodium 5,000 Units/Ml Vial IV PUSH PRN PRN aPTT less than 55 seconds Heparin Sodium (Porcine) 2,500 units 05/05/25 04:19 Heparin Sodium 5,000 Units/Ml Vial IV PUSH PRN PRN aPTT 55 - 70 seconds Heparin Sodium/Dextrose 25,000 units in 250 mls @ 7 mls/hr 05/05/25 04:20 05/05/25 04:34 Heparin Sodium/D5w 100 Units/Ml IV CONT 700 units/hr .Q24H FRANCIS 7 mls/hr Administration Protocol 700 UNITS/HR Dextrose 1,000 mls @ 100 mls/hr 05/05/25 08:34 Dextrose 5% 1,000 Ml IVPB PRN PRN Hypoglycemia Protocol Sodium Chloride 1,000 mls @ 125 mls/hr 05/05/25 08:40 05/05/25 09:12 Normal Saline Iv IV CONT 125 mls/hr .Q8H FRANCIS Administration Insulin Aspart 4 - 8 units 05/05/25 12:00 Insulin Aspart (*Bkc) 100 Units/Ml SUB-Q TIDWM FRANCIS Protocol Insulin Aspart 2 - 4 units 05/05/25 21:00 Insulin Aspart (*Bkc) 100 Units/Ml SUB-Q HS FRANCIS Protocol Insulin Glargine 15 units 05/05/25 21:00 Insulin Glargine (*Bkc) 100 Units/Ml SUB-Q HS FRANCIS Losartan Potassium 50 mg 05/05/25 09:00 05/05/25 09:19 Losartan Potassium 50 Mg Tablet PO 50 mg DAILY FRANCIS Administration Metoprolol Tartrate 50 mg 05/05/25 09:00 05/05/25 09:18 Metoprolol Tartrate 50 Mg Tab PO 50 mg Q12H FRANCIS Administration Perflutren Lipid Microsphere 0 ml 05/05/25 07:38 Perflutren Lipid Microspheres 1.5 Ml Vial Diluted To 10 Ml Total Volume IV PUSH 05/08/25 07:38 ONCE PRN adequate visualization Protocol Radiology Results: ITS Impressions Chest X-Ray 05/04/25 23:17 IMPRESSION: No acute cardiopulmonary process. Chest CTA 05/05/25 06:48 IMPRESSION: 1. No acute cardiopulmonary disease. No evidence for pulmonary embolism. Labs 05/05/25 05:19 05/04/25 22:58 Labs: Laboratory Results - last 24 hr 05/04/25 05/04/25 05/05/25 22:57 22:58 02:01 WBC 12.4 H RBC 4.32 Hgb 13.3 Hct 40.2 MCV 93.1 MCH 30.8 MCHC 33.1 RDW 13.6 Plt Count 334 MPV 9.9 Immature Gran % (Auto) 0.6 H Neut % (Auto) 56.7 Lymph % (Auto) 25.1 [place] % (Auto) 10.6 H Eos % (Auto) 6.2 H Baso % (Auto) 0.8 Lymph # (Auto) 3.11 [place] # (Auto) 1.3 H Eos # (Auto) 0.8 H Baso # (Auto) 0.1 Abs Immat Gran (auto) 0.08 H Absolute Neuts (auto) 7.0 H Absolute Nucleated RBC 0.000 Nucleated RBC % 0.0 PT 14.3 INR 1.1 APTT 29.3 Sodium 131 L Potassium 4.5 Chloride 101 Carbon Dioxide 17 L Anion Gap 13 H BUN 28 H D Creatinine 1.16 H Estim Creat Clear Calc 38 Estimated GFR 46 L Glucose 301 H POC Capillary Glucose 305 H Calcium 8.9 Total Bilirubin 0.5 AST 108 H ALT 99 H Alkaline Phosphatase 243 H Troponin I 0.013 0.178 H* D Total Protein 8.1 Albumin 4.1 Lipase 258 Urine Color Urine Appearance Urine pH Ur Specific [place] Urine Protein Urine Glucose (UA) Urine Ketones Ur Blood (Man) Urine Nitrate Urine Bilirubin Urine Urobilinogen Ur Leukocyte Esterase 05/05/25 05/05/25 05/05/25 05:19 06:25 09:20 WBC 14.8 H RBC 4.43 Hgb 13.7 Hct 41.2 MCV 93.0 MCH 30.9 MCHC 33.3 RDW 13.6 Plt Count 320 MPV 9.9 Immature Gran % (Auto) 0.8 H Neut % (Auto) 51.6 Lymph % (Auto) 29.8 [place] % (Auto) 9.6 H Eos % (Auto) 7.4 H Baso % (Auto) 0.8 Lymph # (Auto) 4.42 H [place] # (Auto) 1.4 H Eos # (Auto) 1.1 H Baso # (Auto) 0.1 Abs Immat Gran (auto) 0.12 H Absolute Neuts (auto) 7.6 H Absolute Nucleated RBC 0.000 Nucleated RBC % 0.0 PT 16.5 H INR 1.3 APTT > 200.0 H* Sodium Potassium Chloride Carbon Dioxide Anion Gap BUN Creatinine Estim Creat Clear Calc Estimated GFR Glucose POC Capillary Glucose 238 H Calcium Total Bilirubin AST ALT Alkaline Phosphatase Troponin I 0.586 H* D 1.080 H* D Total Protein Albumin Lipase Urine Color Urine Appearance Urine pH Ur Specific [place] Urine Protein Urine Glucose (UA) Urine Ketones Ur Blood (Man) Urine Nitrate Urine Bilirubin Urine Urobilinogen Ur Leukocyte Esterase 05/05/25 05/05/25 09:46 10:29 WBC RBC Hgb Hct MCV MCH MCHC RDW Plt Count MPV Immature Gran % (Auto) Neut % (Auto) Lymph % (Auto) [place] % (Auto) Eos % (Auto) Baso % (Auto) Lymph # (Auto) [place] # (Auto) Eos # (Auto) Baso # (Auto) Abs Immat Gran (auto) Absolute Neuts (auto) Absolute Nucleated RBC Nucleated RBC % PT INR APTT 98.4 H Sodium Potassium Chloride Carbon Dioxide Anion Gap BUN Creatinine Estim Creat Clear Calc Estimated GFR Glucose POC Capillary Glucose Calcium Total Bilirubin AST ALT Alkaline Phosphatase Troponin I Total Protein Albumin Lipase Urine Color Yellow Urine Appearance Clear Urine pH 5.5 Ur Specific [place] 1.041 H Urine Protein Negative Urine Glucose (UA) 3+ H Urine Ketones Negative Ur Blood (Man) Negative Urine Nitrate Negative Urine Bilirubin Negative Urine Urobilinogen 0.2 Ur Leukocyte Esterase Negative ASA Classification/Sedation ASA Classification/Sedation ASA Class: III Emergent: No Risks: Risks, benefits and alternatives explained and patient/family accepted plan for sedation. Patient re-evaluated immediately prior to sedation.
--- NOTE | 2025-05-05 11:39 | WPDHPUPDATE1 ---
History and Physical Update Update Date/Time: 05/05/25 11:39 History and Physical has been reviewed, including an updated exam of the patient. There are NO changes in the patient's condition. Risks, benefits, and alternatives have been discussed and questions answered. Patient agrees to proceed with procedure.
--- NOTE | 2025-05-05 16:25 | ECG_ITS ---
Test Date: 2025-05-05 16:28:03 Measurements Intervals Cammal Rate: 60 P: 89 TX: 178 QRS: -65 QRSD: 179 T: 91 QT: 520 QTc: 520 Interpretive Statements ELECTRONIC ATRIAL PACEMAKER ELECTRONIC VENTRICULAR PACEMAKER ABNORMAL RHYTHM ECG Compared to ECG 05/05/2025 05:34:47 Sinus rhythm no longer present Electronically Signed On 05-06-2025 11:02:11 CDT by Riley Cárdenas M.D.
--- NOTE | 2025-05-05 16:25 | P.PCNCC_ITS ---
Cardiac Cath Procedure Note Date of procedure:: 05/05/25 Performing physician:: Daniela Solis MD Indication:: CATHETERIZATION LABORATORY REPORT Procedure Date: Referring Physician: Anesthesia: Versed and Fentanyl were ordered and given in my presence at 3:25 p.m., procedure ended at 4:02 p.m.. Supervision of nurse monitored moderate sedation with Versed and Fentanyl was provided for 37 minutes. Pre-op Diagnosis: NSTEMI Post-op Diagnosis: NSTEMI Obstructive CAD- 70% calcific stenosis of proximal RCA (MLA 3.7mm2) and 80% calcific stenosis of mid RCA Procedure(s): Coronary angiography Access Site: Right common femoral artery Brief History and Clinical Indications: All risks, benefits and alternatives to left heart catheterization with or without percutaneous coronary intervention was discussed at length with the patient. Risk of complications including but not limited to bleeding, infection, arrhythmia, stroke, worsening kidney function, blood loss, groin hematoma, limb loss, emergency coronary artery bypass grafting, and even were discussed with the patient and all questions were answered. The patient understood and wished to proceed. 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 Findings: LEFT HEART CATHETERIZATION FINDINGS: 1. Left main: The left main coronary artery is widely patent without any significant obstructive disease. 2. Left anterior descending: The LAD and the diagonal branches have mild luminal irregularities without any significant obstructive angiographic disease. 3. Left circumflex: The left circumflex artery and the main marginal branches have mild luminal irregularities without any significant obstructive angiographic disease. 4. Right coronary artery: The RCA has mild luminal irregularities without any significant obstructive angiographic disease. The RCA is the dominant vessel. 5. Left ventricle: A. End-diastolic pressure: Not measured B. LV gram deferred. C. No significant gradient across aortic valve on catheter pullback. 6. Opening AO pressure 120/61/85 and closing AO pressure 127/60/88mm Hg. Description of Procedure: Informed consent signed and placed in the chart. Patient transferred to catholic priest room. Prepped and draped in usual sterile fashion. 2% lidocaine in right groin area. Micropuncture needle used to access right common femoral artery with Seldinger technique under fluoroscopic guidance. J wire advanced, micropuncture cannula placed. Right iliofemoral angiogram performed, access confirmed and micropuncture cannula exchanged for 6-FR sheath. ? 5 Polish FL3.5 diagnostic catheter engaged Left Main Coronary Artery. 5 Polish FR4 diagnostic catheter engaged Right Coronary Artery. Multiple orthogonal angiogram obtained and reviewed Aortic valve not crossed. Hemostasis was achieved by 6 Polish Angio-Seal. Procedure Description for PCI: Heparin was used for anticoagulation (ACT maintained above 250) Patient loaded with heparin at 70 units/kg. Six F FR4 guide catheter was used to intubate the RCA. 0.014 runthrough coronary wire was passed in to the distal RPDA. The lesion was pre-dilated with a 2.5 mm X 20 mm balloon inflated to high NASRIN. A LoginRadius IVUS was advanced into the RCA but did cross the lesion. A pullback was performed from the proximal edge of the lesion. It showed 80% mid RCA stenosis with 270-360 degrees calcium, 70% proximal RCA stenosis with 270- 360 degrees calcium. Given that patient will need calcium modification to for PCI to these significantly calcified lesions, decision was made to transfer her to [facility]. The IVUS was removed from the body. Follow-up angiograms showed RCA stenosis were unchanged. Coronary wire and guide-catheter were removed. Pre-procedure - KRISTINA 3 flow. Post-procedure - KRISTINA 3 flow. No angiographic complications identified. Assessment: NSTEMI Obstructive CAD- 70% calcific stenosis of proximal RCA (MLA 3.7mm2) and 80% calcific stenosis of mid RCA Post Operative Condition: Stable No significant blood loss Disposition: Floor/Home Plan: Transfer to [facility] for PCI to severely calcified proximal and mid RCA stenosis. The patient will be monitored in the recovery area. Bedrest for 2 hours. IV fluids 0.9% normal saline at 100 mL/hours for 1 L. Check labs and renal function in a.m.. Monitor on telemetry. EKG p.r.n. for chest pain. Check and replace electrolytes to keep potassium greater than 4 and magnesium greater than 2. Resume heparin in 2 hours. DAPT for 1 year followed by ASA indefinitely. Continue aggressive medical therapy and risk factor modification.
[2025-05-05] MEDS: ONDANSETRON INJ 4 MG/2 ML VIAL IV PUSH (16:27)
[2025-05-05] MEDS: CLOPIDOGREL BISULFATE 300 MG TABLET 600 MG PO (16:44)
--- NOTE | 2025-05-05 18:01 | P.TS_ITS ---
Transfer Discharge Sum: Prov Provider Date of admission: 05/05/25 04:22 Primary care physician: Ignacio Esquivel, Admitting clinician: Sumaya Foster MD Consults: 05/05/25 04:23 Consult to Physician Routine Comment: Consulting Provider: Helen Esquivel Reason for consultation: Nstemi Has provider been notified: No DS: Admitting Diagnosis Discharge Date 05/05/25 Admitting Diagnosis (1) Non-ST elevation ND (NSTEMI): Code(s): I21.4 - Non-ST elevation (NSTEMI) myocardial infarction Status: Acute (2) Pacemaker: Code(s): Z95.0 - Presence of cardiac pacemaker Status: Acute (3) Uncontrolled hypertension: Code(s): I10 - Essential (primary) hypertension Status: Acute (4) Leukocytosis: Code(s): D72.829 - Elevated white blood cell count, unspecified Status: Acute DS: Discharge Diagnosis Discharge Diagnosis (1) Non-ST elevation ND (NSTEMI): Code(s): I21.4 - Non-ST elevation (NSTEMI) myocardial infarction Status: Acute (2) Pacemaker: Code(s): Z95.0 - Presence of cardiac pacemaker Status: Acute (3) Uncontrolled hypertension: Code(s): I10 - Essential (primary) hypertension Status: Acute (4) Leukocytosis: Code(s): D72.829 - Elevated white blood cell count, unspecified Status: Acute Transfer Discharge Sum: Med Medications Active and Home Medications: Home Medications metformin 500 mg tablet 1,000 mg PO BID 04/28/20 [History Confirmed 05/05/25] metoprolol tartrate 50 mg tablet 50 mg PO Q12H 04/28/20 [History Confirmed 05/05/25] amlodipine 10 mg tablet (Norvasc) 10 mg PO DAILY 05/20/20 [History Confirmed 05/05/25] empagliflozin 25 mg tablet (Jardiance) 25 mg PO DAILY 03/13/24 [History Confirmed 05/05/25] glimepiride 4 mg tablet 8 mg PO QAM 03/13/24 [History Confirmed 05/05/25] losartan 100 mg tablet 100 mg PO DAILY 03/13/24 [History Confirmed 05/05/25] hydrocodone 5 mg-acetaminophen 325 mg tablet 1 tablet PO Q6H PRN severe pain #20 tabs 03/15/24 [Rx Confirmed 05/05/25] tamsulosin 0.4 mg capsule 0.4 mg PO QAM #30 caps 03/15/24 [Rx Confirmed 05/05/25] Active Medications Hydrocodone Bitart/Acetaminophen (Hydrocodone/Acetaminophen (*Crx) 5-325 Mg Tablet) 1 tab PO Q6H PRN PRN Reason: severe pain Aspirin (Aspirin 81 Mg Enteric Tablet) 81 mg PO QAM [facility] Last Admin: 05/05/25 09:18 Dose: 81 mg Atorvastatin Calcium (Atorvastatin 40 Mg Tablet) 40 mg PO DAILY [facility] Last Admin: 05/05/25 09:18 Dose: 40 mg Dextrose (Dextrose 50% 25 Gm/50 Ml Syringe) 12.5 gm IV PUSH PRN PRN; Protocol PRN Reason: Hypoglycemia Empagliflozin (Empagliflozin 25 Mg Tablet) 25 mg PO DAILY [facility] Last Admin: 05/05/25 09:18 Dose: 25 mg Glucagon (Glucagon For Inj 1 Mg Vial) 1 mg IM PRN PRN; Protocol PRN Reason: Hypoglycemia Glucose (Glucose Oral Gel 15 Gm Of Glucse In 37.5 Gm Tube) 15 gm PO PRN PRN; Protocol PRN Reason: Hypoglycemia Heparin Sodium (Porcine) (Heparin Sodium 5,000 Units/Ml Vial) 4,000 units IV PUSH PRN PRN PRN Reason: aPTT less than 55 seconds Heparin Sodium (Porcine) (Heparin Sodium 5,000 Units/Ml Vial) 2,500 units IV PUSH PRN PRN PRN Reason: aPTT 55 - 70 seconds Heparin Sodium/Dextrose (Heparin Sodium/D5w 100 Units/Ml) 25,000 units in 250 mls @ 7 mls/hr IV CONT .Q24H [facility]; Protocol Last Admin: 05/05/25 04:34 Dose: 700 units/hr, 7 mls/hr Dextrose (Dextrose 5% 1,000 Ml) 1,000 mls @ 100 mls/hr IVPB PRN PRN; Protocol PRN Reason: Hypoglycemia Sodium Chloride (Normal Saline Iv) 1,000 mls @ 125 mls/hr IV CONT .Q8H [facility] Last Admin: 05/05/25 09:12 Dose: 125 mls/hr Sodium Chloride (Normal Saline Iv) 1,000 mls @ 125 mls/hr IV CONT .Q8H ONE Stop: 05/06/25 00:11 Insulin Aspart (Insulin Aspart (*Bkc) 100 Units/Ml) 4 - 8 units SUB-Q TIDWM FRANCIS; Protocol Last Admin: 05/05/25 12:07 Dose: Not Given Insulin Aspart (Insulin Aspart (*Bkc) 100 Units/Ml) 2 - 4 units SUB-Q HS FRANCIS; Protocol Insulin Glargine (Insulin Glargine (*Bkc) 100 Units/Ml) 15 units SUB-Q HS FRANCIS Losartan Potassium (Losartan Potassium 50 Mg Tablet) 50 mg PO DAILY [facility] Last Admin: 05/05/25 09:19 Dose: 50 mg Metoprolol Tartrate (Metoprolol Tartrate 50 Mg Tab) 50 mg PO Q12H [facility] Last Admin: 05/05/25 09:18 Dose: 50 mg Perflutren Lipid Microsphere (Perflutren Lipid Microspheres 1.5 Ml Vial Diluted To 10 Ml Total Volume) 0 ml IV PUSH ONCE PRN; Protocol PRN Reason: adequate visualization Stop: 05/08/25 07:38 Transfer Discharge Sum: Hosp Hospital Course Hospital course: Diana Singh is a 69 with history of hypertension, diabetes, status post pacemaker, present ED with chief complaint of chest pain patient started have chest pain yesterday evening about 9:30 p.m. when patient was watching TV. Is locating in left chest, without radiation. Patient had palpitation. Patient denies headache, lightheadedness, focal weakness, nausea vomiting diarrhea, dysuria, fever or chills. Patient came to ED for evaluation treatment Upon arrival in the ED, patient was afebrile, blood pressure stable, no O2 desaturation on room air, Lab showed leukocytosis 12,400 Sodium 131, elevated BUN creatinine ratio 28/1.16 Uncontrolled diabetes glucose 301 CTA chest shows no PE no acute cardiopulmonary issues First troponin negative, 2nd troponin bumped up to 0.178 EKG showed sinus rhythm, no ST elevation NSTEMI Patient started have chest pain yesterday Elevated troponin that trending up EKG shows sinus rhythm no ST elevation Received aspirin 325 mg once continue aspirin 81 mg daily p.o. Continue heparin drip, titrate per NSTEMI protocol Continue Lipitor 40 mg daily p.o. Pending echocardiogram Telemetry monitoring Optimize pain management cardiac catheterization Obstructive CAD- 70% calcific stenosis of proximal RCA (MLA 3.7mm2) and 80% calcific stenosis of mid RCA Transfer to [facility] for PCI to severely calcified proximal and mid RCA stenosis. Leukocytosis Patient is afebrile, chest x-ray and CT shows no acute cardiopulmonary issues Pending urinalysis Uncontrolled type 2 diabetes Hold metformin, glimepiride p.o. Start Lantus 15 unit and insulin sliding scale a.c. q.h.s. Continue Jardiance 25 mg daily p.o. Essential hypertension Blood pressure on the lower side Hold amlodipine 10 mg daily p.o. Decrease losartan from 100 mg to 50 mg daily p.o. Acute hyponatremia Dehydration Acute renal failure Sodium 131, creatinine 1.16, baseline creatinine 0.8 Possible due to dehydration Start normal saline IV 100 mL/hour Before transfer, patient condition is stable Patient Condition: Stable Time Spent with Patient Time attestation: Total time spent providing and/or coordinating transfer services: Exam Narrative: GENERAL: Pleasant, in no acute distress. Well-nourished. - EYES: EOMI. Anicteric. - HENT: Moist mucous membranes. - LUNGS: Clear to auscultation bilateral ly, no wheezing, rhonchi, or rales. - CARDIOVASCULAR: Regular rate and rhyth m. No murmur. No JVD. - ABDOMEN: Soft, non-tender and non-dist ended. No palpable masses. - EXTREMITIES: No edema. Peripheral puls es 2+. Non-tender. - NEUROLOGIC: No focal neurological defi cits. CN II-XII grossly intact. - PSYCHIATRIC: Awake, Alert and oriented x 3. Appropriate mood and affect. - SKIN: No rashes or lesions. Warm. - LYMPH: No cervical lymphadenopathy. DS: Data Data Completed and Pending Labs on day of discharge: Labs from last 24 hours 05/05/25 05/05/25 05/05/25 16:03 15:55 11:56 WBC RBC Hgb Hct MCV MCH MCHC RDW Plt Count MPV Immature Gran % (Auto) Neut % (Auto) Lymph % (Auto) Dixie % (Auto) Eos % (Auto) Baso % (Auto) Lymph # (Auto) Dixie # (Auto) Eos # (Auto) Baso # (Auto) Abs Immat Gran (auto) Absolute Neuts (auto) Absolute Nucleated RBC Nucleated RBC % PT INR APTT Activ Coag Time Kaolin 302 H 406 H Sodium Potassium Chloride Carbon Dioxide Anion Gap BUN Creatinine Estim Creat Clear Calc Estimated GFR Glucose POC Capillary Glucose 186 H Calcium Total Bilirubin AST ALT Alkaline Phosphatase Troponin I Total Protein Albumin Lipase Urine Color Urine Appearance Urine pH Ur Specific [place] Urine Protein Urine Glucose (UA) Urine Ketones Ur Blood (Man) Urine Nitrate Urine Bilirubin Urine Urobilinogen Ur Leukocyte Esterase 05/05/25 05/05/25 05/05/25 10:29 09:46 09:20 WBC RBC Hgb Hct MCV MCH MCHC RDW Plt Count MPV Immature Gran % (Auto) Neut % (Auto) Lymph % (Auto) Dixie % (Auto) Eos % (Auto) Baso % (Auto) Lymph # (Auto) Dixie # (Auto) Eos # (Auto) Baso # (Auto) Abs Immat Gran (auto) Absolute Neuts (auto) Absolute Nucleated RBC Nucleated RBC % PT INR APTT 98.4 H Activ Coag Time Kaolin Sodium Potassium Chloride Carbon Dioxide Anion Gap BUN Creatinine Estim Creat Clear Calc Estimated GFR Glucose POC Capillary Glucose Calcium Total Bilirubin AST ALT Alkaline Phosphatase Troponin I 1.080 H* D Total Protein Albumin Lipase Urine Color Yellow Urine Appearance Clear Urine pH 5.5 Ur Specific [place] 1.041 H Urine Protein Negative Urine Glucose (UA) 3+ H Urine Ketones Negative Ur Blood (Man) Negative Urine Nitrate Negative Urine Bilirubin Negative Urine Urobilinogen 0.2 Ur Leukocyte Esterase Negative 05/05/25 05/05/25 05/05/25 06:25 05:19 02:01 WBC 14.8 H RBC 4.43 Hgb 13.7 Hct 41.2 MCV 93.0 MCH 30.9 MCHC 33.3 RDW 13.6 Plt Count 320 MPV 9.9 Immature Gran % (Auto) 0.8 H Neut % (Auto) 51.6 Lymph % (Auto) 29.8 Dixie % (Auto) 9.6 H Eos % (Auto) 7.4 H Baso % (Auto) 0.8 Lymph # (Auto) 4.42 H Dixie # (Auto) 1.4 H Eos # (Auto) 1.1 H Baso # (Auto) 0.1 Abs Immat Gran (auto) 0.12 H Absolute Neuts (auto) 7.6 H Absolute Nucleated RBC 0.000 Nucleated RBC % 0.0 PT 16.5 H INR 1.3 APTT > 200.0 H* Activ Coag Time Kaolin Sodium Potassium Chloride Carbon Dioxide Anion Gap BUN Creatinine Estim Creat Clear Calc Estimated GFR Glucose POC Capillary Glucose 238 H Calcium Total Bilirubin AST ALT Alkaline Phosphatase Troponin I 0.586 H* D 0.178 H* D Total Protein Albumin Lipase Urine Color Urine Appearance Urine pH Ur Specific [place] Urine Protein Urine Glucose (UA) Urine Ketones Ur Blood (Man) Urine Nitrate Urine Bilirubin Urine Urobilinogen Ur Leukocyte Esterase 05/04/25 05/04/25 22:58 22:57 WBC 12.4 H RBC 4.32 Hgb 13.3 Hct 40.2 MCV 93.1 MCH 30.8 MCHC 33.1 RDW 13.6 Plt Count 334 MPV 9.9 Immature Gran % (Auto) 0.6 H Neut % (Auto) 56.7 Lymph % (Auto) 25.1 Dixie % (Auto) 10.6 H Eos % (Auto) 6.2 H Baso % (Auto) 0.8 Lymph # (Auto) 3.11 Dixie # (Auto) 1.3 H Eos # (Auto) 0.8 H Baso # (Auto) 0.1 Abs Immat Gran (auto) 0.08 H Absolute Neuts (auto) 7.0 H Absolute Nucleated RBC 0.000 Nucleated RBC % 0.0 PT 14.3 INR 1.1 APTT 29.3 Activ Coag Time Kaolin Sodium 131 L Potassium 4.5 Chloride 101 Carbon Dioxide 17 L Anion Gap 13 H BUN 28 H D Creatinine 1.16 H Estim Creat Clear Calc 38 Estimated GFR 46 L Glucose 301 H POC Capillary Glucose 305 H Calcium 8.9 Total Bilirubin 0.5 AST 108 H ALT 99 H Alkaline Phosphatase 243 H Troponin I 0.013 Total Protein 8.1 Albumin 4.1 Lipase 258 Urine Color Urine Appearance Urine pH Ur Specific [place] Urine Protein Urine Glucose (UA) Urine Ketones Ur Blood (Man) Urine Nitrate Urine Bilirubin Urine Urobilinogen Ur Leukocyte Esterase
--- NOTE | 2025-05-05 19:52 | PC.NURSE ---
1900- pt being transferred to [facility]- angio seal card given to -for to put in her wallet
[2025-05-05] MEDS: INSULIN ASPART (*BKC) 100 UNITS/ML SUB-Q (21:14)
[2025-05-05] MEDS: INSULIN GLARGINE (*BKC) 100 UNITS/ML 15 UNITS SUB-Q (21:15)
[2025-05-05 23:37] LABS: Partial Thromboplastin Time 133.7 Seconds (22.3-36.8)
[2025-05-06] VITALS: PULSE 68; RESP 17; O2SAT 97
[2025-05-06 03:44] VITALS: PULSE 68
[2025-05-06 03:45] VITALS: PULSE 70; RESP 17; O2SAT 97
[2025-05-06 04:00] VITALS: BP 112/68; PULSE 67; RESP 16; TEMP 36.6; O2SAT 97
[2025-05-06 04:27] LABS: Hematocrit 39.3 % (37.0-47.0); Hemoglobin 12.7 g/dL (12.0-15.0); Immature Granulocyte Percent A 0.5 % (0-0.5); Lymphocytes Absolute Auto 2.92 K/mm3 (0.9-3.2); Mean Corpuscular HGB Conc 32.3 g/dl (32-36); Mean Corpuscular Hemoglobin 30.7 pg (26-34); Mean Corpuscular Volume 94.9 fl (80-100); Nucleated Red Blood Cells Absolute Auto 0.000 K/mm3 (0.0-0.012); Nucleated Red Blood Cells Perc 0.0 % (0.0-0.2); Platelet Count Result 311 k/mm3 (150-375); Red Blood Count 4.14 M/mm3 (4.2-5.4); White Blood Count 11.1 K/mm3 (4.5-10.0)
== END 2025-05-06 04:42 | disposition short-term general hospital (02) | DRG 281 ==
LOC: ANHED 05-05 04:22 → ANHIMU 05-05 11:09
PROVIDERS: Internal Medicine Interventional Cardiology; Admitting Provider General Practice; Emergency Provider Emergency Medicine; PCP Family Medicine; Visit Provider Hospitalist
PROC: 4A023N7 Measurement of Cardiac Sampling and Pressure, Left Heart, Percutaneous Approach (ICD-10-PCS; CPT 93454; principal; 2025-05-05 14:00)
PROC: 4A023N7 Measurement of Cardiac Sampling and Pressure, Left Heart, Percutaneous Approach (ICD-10-PCS; CPT 92920; 2025-05-05 14:00)
PROC: 4A023N7 Measurement of Cardiac Sampling and Pressure, Left Heart, Percutaneous Approach (ICD-10-PCS; 2025-05-05 14:00)
PROC: 4A023N7 Measurement of Cardiac Sampling and Pressure, Left Heart, Percutaneous Approach (ICD-10-PCS; 2025-05-05 14:00)
DX: I21.4 Non-ST elevation (NSTEMI) myocardial infarction (principal); E87.1 Hypo-osmolality and hyponatremia; I25.10 Atherosclerotic heart disease of native coronary artery without angina pectoris; I10 Essential (primary) hypertension; E78.5 Hyperlipidemia, unspecified; H40.9 Unspecified glaucoma; E86.0 Dehydration; E11.9 Type 2 diabetes mellitus without complications; D72.829 Elevated white blood cell count, unspecified; Z86.73 Personal history of transient ischemic attack (TIA), and cerebral infarction without residual deficits; Z95.0 Presence of cardiac pacemaker; Z87.891 Personal history of nicotine dependence; N28.9 Disorder of kidney and ureter, unspecified
CPT/HCPCS: 36415; 71045; 71275; 80053; 81003; 82948; 83690; 84484; 85025; 85610; 85730; 92920; 92978; 93005; 93454; 96374; 96375; 99285; A9270; C1725; C1753; C1760; C1769; C1887; C1894; G0269; J1644; J1815; J2003; J2250; J2270; J2305; J2405; J3010; J7030; J7040; Q9967

== ENCOUNTER 2025-07-06 15:20 | Outpatient (CLI) | payer MEDICARE, SELFPAY ==
--- NOTE | ~2025-07-06 | DEXA_ITS ---
Bone Density Report Name: BECKY FONG Age: 69 Sex: Female Ethnicity: White Date of : 1955 Indication: osteopenia; hysterectomy; Referring Provider: BIA, JD Leon Study: Bone densitometry was performed. Exam Date: July 06, 2025 Accession number: [id number] Bone Density: Region BMD T-score Z-score Classification AP Spine(L2, L3, L4) 0.998 -0.7 1.3 Normal Femoral Neck (Left) 0.654 -1.8 0.0 Osteopenia Total Hip (Left) 0.708 -1.9 -0.5 Osteopenia Femoral Neck (Right) 0.571 -2.5 -0.8 Osteoporosis Total Hip (Right) 0.687 -2.1 -0.7 Osteopenia Total Hip Mean 0.698 -2.0 -0.6 Osteopenia World Health Organization criteria for BMD impression classify patients as: Normal (T-score at or above -1.0), Osteopenia (T-score between -1.0 and -2.5), or Osteoporosis (T-score at or below -2.5). 10-year Fracture Risk: FRAX not reported because: Some T-score for Spine Total or Hip Total or Femoral Neck at or below -2.5 Previous Exams: -- Region Exam Age BMD T-score BMD Change BMD Change Date g/cm2 vs Baseline vs Previous -- AP Spine (L2-L4) 07/06/2025 69 0.998 -0.7 6.6%* 6.6%* 10/13/2014 59 0.936 -1.3 Total Hip(Left) 07/06/2025 69 0.708 -1.9 -7.5%* -7.5%* 10/13/2014 59 0.766 -1.4 Total Hip(Right) 07/06/2025 69 0.687 -2.1 -0.8% -0.8% 10/13/2014 59 0.692 -2.0 -- *Denotes significance at 95% confidence level, LSC for AP Spine = 0.022 g/cm2, LSC for Total Hip = 0.027 g/cm2 Clinical Information Provided by Patient: Has the following medical conditions: Hysterectomy Patient maximum height was 61 Menopause Age: 38 No regular weight bearing exercise Drinks caffeinated beverages Onset of menses at age 14 Number of children 4 Impression: The patient has osteoporosis, based on the Right Femoral Neck T-score. The BMD for the Total Hip(Left) decreased, changing by -7.5% since the last DXA exam. Discussion: INCREASED RISK OF FRACTURE. BONE DENSITY IS UNDESIRABLY LOW AT ONE OR MORE SKELETAL SITES, CONSISTENT WITH POSTMENOPAUSAL OSTEOPOROSIS. This patient's lowest T-score meets the World Health Organization's (WHO) criteria for osteoporosis at one or more sites (T-score -2.5 or below). In untreated patients, the risk of osteoporotic fracture increases approximately two-fold for each 1.0 SD decrease in T-score. Low bone density is not the only risk factor for fracture; also consider factors such as patient's age, frailty or poor health, risk of falling, risk of injury, previous osteoporotic fracture, family history of osteoporosis, cigarette smoking, low body weight, etc. Not everyone with low bone mineral density has osteoporosis; osteomalacia and other metabolic bone disorders should also be considered. Patients who have osteoporosis should be evaluated for specific diseases and conditions (secondary causes) that may cause or contribute to bone loss. The [place] [employer]ocrinologists (AACE) and National Osteoporosis Foundation (NOF) recommend pharmacologic intervention for all postmenopausal women whose T-score is in this range. The patient should follow a healthful lifestyle (good nutrition with adequate calcium and vitamin D, and appropriate weight-bearing exercise). Follow-Up: Consider a repeat BMD and Vertebral Fracture Assessment (VFA) exam in 2 years or sooner if medically necessary, to reassess this patient's status. Reported by: BELA on 07/06/2025 3:49:00 PM. Reviewed, dictated and finalized at location A.
== END 2025-07-06 15:21 | disposition home or self-care (01) ==
DX: M81.0 Age-related osteoporosis without current pathological fracture (principal); M85.89 Other specified disorders of bone density and structure, multiple sites; Z78.0 Asymptomatic menopausal state
CPT/HCPCS: 77080